=== PATIENT | female | born 1955 | race Caucasian/White ===

== ENCOUNTER → 2017-04-13 | Day surgery (SDC) | payer OTHER ==
[~2017-04-13] VITALS: Ht 162.6 cm; Wt 75.0 kg
[~2017-04-13] MED LIST: ACETAMINOPHEN 325 MG TAB PO PRN; ASPCH81X PO; ATOR-22 PO; ATROPINE SULFATE 0.1 MG/ML 5ML SYR IV PRN; CHOLPOW PO; CYM/30 PO; DICL1GEL12; DICY10CA12 PO; DULO60CA44 PO; FENTANYL CITRATE INJ 50 MCG/1 ML 2 ML VIAL ONE; FLUO40CA8 PO; HEPARIN SOD (PORCINE) 1000 UNIT/ML 10 ML VIAL ONE; METO50TA7 PO; MIDAZOLAM HCL 1 MG/ML 2ML VIAL ONE; NITROGLYCERIN/D5W 100MCG/ML 20ML SYR ONE; NiCARDipine HCL INJ 2.5 MG/ML 10 ML AMP ONE; OMEP40CA PO; ONDANSETRON INJ 2 MG/ML 2 ML VIAL IV PRN; PREG200C PO; PROP40TA5 PO; SODIUM CHLORIDE 0.9% 1000ML 250 ML IV PRN; SUMA50TA15 PO; TRAZ100T29 PO; VNTHFA/IN INH
[2017-04-13 07:05] VITALS: BP 143/72; PULSE 74; TEMP 36.8; O2SAT 96; Ht 162.6 cm; Wt 75.0 kg
--- NOTE | 2017-04-13 08:37 | History & Physical Bridge Note ---
H&P Re-Evaluation Bridge Note: I have examined the patient, reviewed the History & Physical and in the interval since the performance of the History & Physical I have noted the following changes of clinical significance: No changes noted
--- NOTE | 2017-04-13 08:38 | Procedure Note ---
Pre-Mod Sedation Assessment General Date of Moderate Sedation: Apr 13, 2017. Vital Signs: Vital Signs Past 12 Hours Date Time Temp Pulse Resp B/P (MAP) Pulse Ox O2 Delivery O2 Flow Rate FiO2 04/13/17 07:05 36.8 74 16 143/72 96 Room Air Review Cardiovascular: regular rate, rhythm, no edema, no gallop, no JVD, no murmur Abdomen: normal bowel sounds, non tender, soft Lungs: chest non-tender, lungs clear, normal breath sounds Pre-Sedation Airway Assessment Oral Cavity: WNL Short Thick Neck: No Hx of Sleep Apnea: No Smoking Status: Never Smoker Mallampati Classification: Class III ASA Classification: Class II Procedure Planning Contraindications-for Mod Sed: None Yes Notes The planned sedation has been discussed with the patient and consent obtained. I have identified the patient, determined the appropriateness of sedation and have assessed the patient immediately prior to the procedure. All medicine(s) and interventions are by my order.
--- NOTE | 2017-04-13 09:35 | Procedure Note ---
Post-Mod Sedation Assessment General Date of Moderate Sedation Apr 13, 2017. Vital Signs: Vital Signs Past 12 Hours Date Time Temp Pulse Resp B/P (MAP) Pulse Ox O2 Delivery O2 Flow Rate FiO2 04/13/17 07:05 36.8 74 16 143/72 96 Room Air Review - Discharge Criteria Vital Signs Stable: Yes Alert/Oriented/Conversant: Yes Returned to Baseline Mental St: Yes Nausea Absent/Minimal: Yes Pain/Discomfort/Absent/Minimal: Yes Normal/Baseline Respirations: Yes Active Bleeding?: No Pt Received D/C Instructions: Yes Prescriptions Given: None Specific Proced. D/C Criteria Distal Pulses Present (Cardiac: Yes Groin site assessed-Card Cath: N/A Voided Prior To Discharge: Yes Discharged Patients Adult Escort/Transportation: Yes
--- NOTE | 2017-04-13 09:41 | Cardiac Catheterization ---
Procedure Note Procedure Date Apr 13, 2017. Pre-Procedure Diagnosis Positive Stress Test AUC Score 7 Post-Procedure Diagnosis Normal Coronary Arteries Procedure(s) Performed Coronary Angiography Assistant Store Manager Operations Dr. Pa Vacuum Cooker Operator(s) Rodriguez VASQUEZIS Estimated Blood Loss Medication(s) Heparin, Nicardipine, Nitroglycerin, Versed, Lidocaine 1% Summary of Findings Normal coronary arteries Hemodynamics Rest Ao: 142/84/109 Final Ao: 154/87/116 LV: N/A Recommendations Medical therapy and/or Counseling Specimens None Radiation Exposure (mGy) 822 Contrast (mls) 60 Anesthesia Light sedation. Start 899. End 926. Procedural Complication(s) None Disposition Radio Producer Holding/Recovery ACC Data Cardiac Status Clinical evaluation leading to the procedure CAD Presntation: Positive Stress Test Anginal Classification: CCS II Heart Failure: No Coronary Anatomy Dominant: Right Left Main (% Stenosis): Normal LAD (% Stenosis): Normal D1 (% Stenosis): Normal D2 (% Stenosis): Normal Circumflex (% Stenosis): Normal OM1 (% Stenosis): Normal OM2 (% Stenosis): Normal OM3 (% Stenosis): Normal L PL1 (% Stenosis): Normal RCA (% Stenosis): Normal R PDA (% Stenosis): Normal R PL1 (% Stenosis): Normal R PL2 (% Stenosis): Normal Diagnostic Status: Elective Closure Device Percutaneous Entry Location: Radial Closure Device: Radial Band Intraprocedure Events Significant Dissection: No Perforation: No
--- NOTE | 2017-04-13 09:46 | Discharge Instructions ---
Discharge Instructions Procedure Procedure Date: Apr 13, 2017. Reason for Visit: Abnormal Nuclear Stress Test Kopinski To Do*. Discharge Discharge Date: Apr 13, 2017. Discharge Diagnosis: status post cardiac catheterization. Normal coronary arteries. Last Recorded Wt (Kilograms): 75 Anesthesia Post Anesthesia Instructions: If you have had General Anesthesia or IV Sedation: * Do not drive today. * Resume driving when surgeon permits. * Do not make important decisions or sign legal documents today. * Call surgeon for: 1. Temperature elevations greater than 101 degrees F. 2. Uncontrollable pain. 3. Excessive bleeding. 4. Persistent nausea and vomiting. 5. Medication intolerance (nausea, vomiting or rash). * For nausea and vomiting use only clear liquids such as: tea, soda, bouillon until nausea subsides, then gradually increase diet as tolerated. * If you have any concerns or questions, call your surgeon's office. If physician is unavailable and it is an emergency, call 911 or go to the nearest emergency room. Instructions Activity Recommendations: limitations as noted below Return to School/Work: with the following limitations Recommended Home Diet: resume previous diet Allergies: Coded Allergies: Morphine (Verified Allergy, Unknown, ., 02/17/14) Penicillins (Verified Allergy, Unknown, ., 02/17/14) Sulfa Antibiotics (Verified Allergy, Unknown, ., 02/17/14) Provider Instructions ACTIVITY RECOMMENDATIONS: Excess manipulation of the wrist should be avoided for the next 24-48 hours. * No lifting over 2 pounds (approximately a 1/2 gallon of milk) with the utilized arm for 24 hours. * No strenuous activity such as bowling or tennis for 3 days. * Keep the site of the procedure covered with a bandage for 24 hours. *You may shower the day after the procedure. Do not take a tub bath or submerge the puncture site in water for the next 3 days. *Do not operate any motorized equipment for 3 days. SPECIAL CARE INSTRUCTIONS: The site may be slightly bruised and sore following your procedure. Should any of the following occur, contact the Dr. who performed your procedure. 1. Redness/inflammation, swelling, chills, or fever, or colored drainage at procedure site within 3-7 days after your procedure. 2. Coldness, discoloration, ongoing numbness, severe pain, or swelling. Expect mild tingling of hand and tenderness at the puncture site for up to three days. If this persists beyond three days, or other symptoms develop, notify the Dr. who performed your procedure. BLEEDING: If the procedure site on your wrist begins to bleed, do not panic 1. Place 1 or 2 fingers firmly just slightly above the insertion site to stop the bleeding. You may be able to feel your pulse as you hold pressure. 2. Lift your finger after 5 minutes to see if the bleeding has stopped. 3. Once the bleeding has stopped, gently wipe the wrist area clean with a bandage. * If the bleeding from your wrist does not stop after 10 minutes, or if there is a large amount of bleeding or spurting, call 911 (do not drive yourself to the hospital). SKIN IRRITATION: * You may experience some redness and/or swelling in the area where radiation was administered. If any skin irritation occurs, please contact your family physician. FOLLOW UP VISIT: Keep any scheduled doctor appointments. Follow Up Follow-up with: Dr. Carlos as scheduled. PCP as scheduled. Roverto White Recommendations: Call your doctor if: * Temperature above 101 degrees * Pain not relieved by pain medicine ordered * There is increased drainage or redness from any incision * You have any unanswered questions or concerns. Your Doctors Instructions noted above were prepared by provider Alfonso Pa. Patient Signature Section: Patient Instructions Signature Page Joana Ramirez Patient (or Guardian) Signature/Date: I have read and understand the instructions given to me by my caregivers. Caregiver/RN/Doctor Signature/Date: The above-named patient and/or guardian has received patient instructions on this date. + Original Patient Signature Page (only) stays with chart. Please make copy for patient.
[2017-04-13 13:00] VITALS: BP 124/75; PULSE 66; O2SAT 98
== END | disposition home or self-care (01) ==
LOC: C.CATH 06:52
PROVIDERS: ATTEND Internal Medicine Cardiovascular Disease
DX: R94.39 Abnormal result of other cardiovascular function study (principal); I25.9 Chronic ischemic heart disease, unspecified; I49.3 Ventricular premature depolarization; I35.1 Nonrheumatic aortic (valve) insufficiency; I34.0 Nonrheumatic mitral (valve) insufficiency; I95.2 Hypotension due to drugs; R06.09 Other forms of dyspnea; R00.0 Tachycardia, unspecified; K21.0 Gastro-esophageal reflux disease with esophagitis; M15.9 Polyosteoarthritis, unspecified; M41.20 Other idiopathic scoliosis, site unspecified; Z90.710 Acquired absence of both cervix and uterus; Z83.3 Family history of diabetes mellitus; Z82.49 Family history of ischemic heart disease and other diseases of the circulatory system; Z88.0 Allergy status to penicillin; Z88.2 Allergy status to sulfonamides

== ENCOUNTER 2020-04-12 17:37 | Observation (INO) ==
--- OUTSIDE RECORDS SUMMARY | 2020-04-12 17:40 | External Medical Summary | Continuity of Care Document ---
:1955 Author Name Jose Antonio Granados, Provider Address Unavailable Unavailable , Care Team Providers Name Role Phone Susan [email or web address] PCP, UNKNOWN Unavailable Unavailable Problems Active medical history not documented Allergies and Adverse Reactions Allergy history not documented Medications Medications not documented Procedures Procedures not documented Immunizations Immunizations not documented Plan of Treatment Planned Observations Planned Goals not documented Results No Known Results Results not documented
--- OUTSIDE RECORDS SUMMARY | 2020-04-12 17:40 | External Medical Summary | Continuity of Care Document ---
:1955 Author Name Jose Antonio Granados, Provider Address Unavailable Unavailable , Care Team Providers Name Role Phone Susan [email or web address] PCP, UNKNOWN Unavailable Unavailable Problems Active medical history not documented Allergies and Adverse Reactions Allergy history not documented Medications Medications not documented Procedures Procedures not documented Immunizations Immunizations not documented Plan of Treatment Planned Observations Planned Goals not documented Results No Known Results Results not documented
[2020-04-12 18:39] LABS: Basophils # (auto) 0.02 K/uL (0-0.2); Basophils % (auto) 0.3 %; Eosinophils # (auto) 0.08 K/uL (0-0.5); Eosinophils % (auto) 1.3 %; Hematocrit (blood only) 41.3 % (37-47); Hemoglobin 13.8 g/dL (12.0-16.0); Immature Granulocytes # (auto) 0.01 K/uL (0.00-0.02); Immature Granulocytes % (auto) 0.2 %; Lymphocytes # (auto) 1.96 K/uL (1.2-3.4); Lymphocytes % (auto) 32.3 %; Mean Corpuscular Hemoglobin 28.2 pg (25-34); Mean Corpuscular Hgb Conc 33.4 g/dL (32-36); Mean Corpuscular Volume 84.3 fL (80-100); Mean Platelet Volume 12.1 fL (7.4-10.4); Monocytes # (auto) 0.67 K/uL (0.11-0.59); Neutrophils # (auto) 3.33 K/uL (1.4-6.5); Neutrophils % (auto) 54.9 %; Platelet Count 279 K/uL (130-400); White Blood Count 6.07 K/uL (4.8-10.8)
[2020-04-12 18:51] LABS: Partial Thromboplastin Ratio 0.9; Partial Thromboplastin Time 26.5 Seconds (21.0-31.0); Prothrombin Time 10.1 Seconds (9.0-12.0)
[2020-04-12 18:54] LABS: D Dimer 560 ug/L FEU (0-500)
[2020-04-12 18:57] LABS: Alanine Aminotransferase 21 U/L (12-78); Albumin Level 3.7 gm/dl (3.4-5.0); Aspartate Aminotransferase 19 U/L (15-37); BUN Creatinine Ratio 16.8 (10-20); Blood Urea Nitrogen 17 mg/dl (7-18); Calcium 9.1 mg/dl (8.5-10.1); Carbon Dioxide 24 mmol/L (21-32); Chloride 107 mmol/L (98-107); Est GFR (African American) 66.4; Est GFR (Non-African American) 57.3; Glucose 123 mg/dl (70-99); Lipase 122 U/L (73-393); Sodium 140 mmol/L (136-145)
[2020-04-12 19:02] LABS: Albumin Globulin Ratio 1.1 (0.9-2); Alkaline Phosphatase 182 U/L (45-117); Bilirubin,Total 0.4 mg/dl (0.2-1); Globulin 3.5 gm/dl (2.5-4.0); Total Protein 7.2 gm/dl (6.4-8.2); Troponin I < 0.015 ng/ml (0-0.045)
--- NOTE | 2020-04-12 19:36 | XRay Report ---
SINGLE VIEW CHEST CLINICAL HISTORY: Atypical chest pain. FINDINGS: An AP, portable, upright chest radiograph is compared to study dated 10/22/2017. The examina tion is degraded by portable technique and patient rotation. The cardiomediastinal silhouette is un remarkable. Chronic interstitial thickening is similar to previous. There is mild bibasilar scarring/ atelectasis. No airspace consolidation or large pleural effusion is identified. No pneumothorax is se en. The skeletal structures are osteopenic. The bony thorax is grossly intact. IMPRESSION: No active disease in the chest. ACT 112: Negative or not required by law. Electronically signed by: Nirav Keller M.D. 04/12/2020 7:34 PM
[2020-04-12] MEDS ORDERED: OPTIRAY 320 125ml IV ONE (19:49)
--- NOTE | 2020-04-12 20:02 | CT Scan Report ---
CT ANGIOGRAM OF THE CHEST COMBO CLINICAL HISTORY: Atypical chest pain. COMPARISON STUDY: Chest x-ray dated 04/12/2020. TECHNIQUE: Before and following the IV administration of 119 cc of Optiray 320, CT angiogram of the c hest was performed from the thoracic inlet to the upper abdomen utilizing the dissection protocol. Im ages are reviewed in the axial, sagittal, and coronal planes. 3-D MIPS images are created and assesse d. IV contrast was administered without complication. A dose lowering technique was utilized adherin g to the principles of ALARA. CT DOSE: 722.04 mGy.cm FINDINGS: Thyroid: Imaged portions of the thyroid gland are normal in size and heterogeneous in attenuation. Thoracic aorta: No intramural hematoma is seen on the unenhanced series. The thoracic aorta is normal in caliber and demonstrates standard 3-vessel arch anatomy. No dissection is seen. The arch vessels are widely patent. Pulmonary vasculature: The pulmonary trunk is normal in caliber. There are no filling defects within the main, lobar, or segmental pulmonary arteries to suggest pulmonary embolus. Heart: The heart is normal in size and without pericardial effusion. Lungs and pleural spaces: There is no airspace consolidation or pleural effusion. Scarring/atelectasi s seen at both lung bases. The trachea and central airways are clear. Mediastinum: There is no mediastinal lymphadenopathy. Jolanta: Clear. Axillae: There is no axillary lymphadenopathy. Upper abdomen: Cholecystectomy clips are noted in the right upper quadrant. Nonobstructing calculi ar e seen in the upper poles of both kidneys. Skeletal structures: The skeletal structures are osteopenic. Degenerative change and kyphoscoliosis i s noted in the thoracic spine. No lytic or blastic bony lesions are seen. IMPRESSION: 1. Unremarkable CT angiogram of the thoracic aorta. 2. There is no evidence of pulmonary embolus in the main, lobar, or segmental pulmonary arteries. 3. There is no airspace consolidation or pleural effusion. 4. Bilateral nephrolithiasis. 5. Additional findings as above. ACT 112: Negative or not required by law. Electronically signed by: Nirav Keller M.D. 04/12/2020 8:01 PM
[2020-04-12] MEDS ORDERED: ASPIRIN CHEW 324 MG PO STA (20:20)
--- NOTE | 2020-04-12 21:04 | Emergency Department Note ---
Impression & Plan Substernal chest pain, Hypokalemia ED Provider Note INFORMANT: Patient ED PROVIDER(S): Oc Finch MD CHIEF COMPLAINT: Chest pain PLAN: Disposition: Admitted Condition: Good MEDICAL DECISION MAKING: Patient presented with acute substernal chest pain that radiated to her back. Her ECG did not reveal any acute ST elevation or depression. The patient had improvement in her pain without direct treatment. She had an unremarkable chest x-ray. CBC, chemistry panel, LFTs were unremarkable except for a slightly low potassium level. Potassium was repleted. Her D-dimer was mildly elevated. Given the pain that was severe at the start and radiated to her back she underwent CT dissection study. No PE, dissection or emergent pathology was noted. She was given aspirin. I discussed further management in the hospital. The patient was in agreement. On reassessment her pain was resolved. [facility] Patient was evaluated in the ER and admitted for further management. Triage Nursing notes reviewed and agree them. Vital Signs: reviewed and remarkable for no significant abnormalities Differential diagnosis: Cardiac ischemia, aortic dissection, pulmonary embolism, pneumothorax, p neumonia, pericarditis, myocarditis, esophageal rupture, GERD, cholecystitis, pancreatitis, musculoskeletal, as well as other pathologies. Diagnostics interpreted by me: ECG: Twelve-lead ECG reveals normal sinus rhythm at 95 bpm. Inferior Q waves present. No ST elevation or depression. No PACs or PVCs. Normal axis and QRS. Cardiac Monitoring:Cardiac monitoring ordered by me: The patient was placed on continuous cardiac monitoring and observed. It revealed a normal sinus rhythm at 90 beats per minute without ectopy or evidence of dysrhythmia. Imaging studies: Chest x-ray. Findings: A chest x-ray was performed and revealed no pneumothorax, effusion, infiltrate, pulmonary edema, free air under the diaphragm, or wide mediastinum. Impression: No acute disease. CT dissection study negative for acute process. Consultation(s): Dr. Shore HPI: The patient is a 65 year old female who presents to the Emergency Room with complaints of substernal chest pain. This started this evening and is persisting. The patient also notes the following associated symptoms, pain radiating to her back and general malaise. The patient has found no relieving factors. Current pain is rated as 4/10. Pain at its peak was 10 out of 10. Pt denies LOC, headache, fevers, chills, diaphoresis, visual changes, neck pain, Covid exposure, loss of taste or smell, breathing difficulties, nausea, vomiting, abdominal pain, lower back pain, melena, hematochezia, urinary symptoms, numbness, weakness, lymphadenopathy, rash, or other complaints. ROS: See above HPI for pertinent positives & negatives. A total of 10 systems reviewed and were otherwise negative. PAST MEDICAL HISTORY:See Below, high cholesterol, GERD PAST SURGICAL HISTORY:See Below, cholecystectomy, hysterectomy FAMILY HISTORY:See Below, CAD SOCIAL HISTORY:See Below, HOME MEDICATIONS:See Below ALLERGIES:See Below VITALS:See Below PHYSICAL EXAMINATION: GENERAL: Awake, alert, uncomfortable-appearing, in no distress HENT: Normocephalic, atraumatic. Oropharynx unremarkable. EYES: Normal conjunctiva. Sclera non-icteric. NECK: Inspection normal. Non-tender. Supple. No nuchal rigidity. FROM. No masses. RESPIRATORY: Clear to auscultation. No wheezes. No rales. Normal respiratory effort. CARDIAC: Normal rate. Normal rhythm. No murmurs. No rubs. Extremities warm and well perfused. Pulses equal. No JVD. GI: Soft, non-distended. No tenderness to palpation. No rebound or guarding. No masses. RECTAL: Deferred. MUSCULOSKELETAL: Atraumatic. Chest examination reveals no tenderness. The back is symmetrical on inspection without obvious abnormality. There is no CVA tenderness to palpation. No joint edema. LOWER EXTREMITIES: Calves are equal size bilaterally and non-tender. No edema. No discoloration. NEURO: Normal sensorium. No sensory or motor deficits noted. SKIN: No rash or jaundice noted. Oc Finch MD Past Med/Surg History Social History Smoking Status: Unknown if ever smoked Feels Safe at Home: Yes Allergies Allergies Allergy/AdvReac Type Severity Reaction Status Date / Time morphine Allergy Unknown . Verified 10/22/17 10:28 Penicillins Allergy Unknown . Verified 10/22/17 10:28 Sulfa (Sulfonamide Allergy Unknown . Verified 10/22/17 10:28 Antibiotics) Home Meds Home Medications Medication Instructions Recorded Confirmed almotriptan malate 12.5 mg PO DIRECTED 04/12/20 04/12/20 atorvastatin 20 mg PO DIRECTED 04/12/20 04/12/20 cholestyramine (with sugar) 1 ea PO DIRECTED 04/12/20 04/12/20 diclofenac sodium 1 ea TOPICAL DIRECTED 04/12/20 04/12/20 duloxetine 30 mg PO DIRECTED 04/12/20 04/12/20 metoprolol succinate 50 mg PO DIRECTED 04/12/20 04/12/20 omeprazole 40 mg PO DIRECTED 04/12/20 04/12/20 trazodone 100 mg PO DIRECTED 04/12/20 04/12/20 Results & Data (ED) Vital Signs Vital Signs - 24 hr 04/12/20 17:42 04/12/20 18:03 04/12/20 18:04 Temperature 37.0 C Temperature Source Oral Pulse Rate 107 H 89 90 Pulse Rate [Left] 72 Pulse Rate from SpO2 Sensor 89 Respiratory Rate 24 20 16 Respiratory Effort / Characteristics Non-Labored Spontaneous Spontaneous Respiratory Depth Normal Respiratory Pattern Regular Blood Pressure 139/95 123/82 Blood Pressure [Left Arm] 123/82 Blood Pressure Mean 109 92 Blood Pressure Mean [Left Arm] 95 Blood Pressure Position Sitting Blood Pressure Position [Left Arm] Lying Pulse Oximetry 91 98 99 Oxygen Delivery Method Room Air Room Air Room Air Sepsis Recent Fever Within 48 Hours No Sepsis New/Unexplained Change in Mental Status No Sepsis Action Taken by Nursing Physician Notified 04/12/20 18:35 04/12/20 19:30 Temperature Temperature Source Pulse Rate 81 Pulse Rate [Left] Pulse Rate from SpO2 Sensor 81 Respiratory Rate 15 Respiratory Effort / Characteristics Respiratory Depth Respiratory Pattern Blood Pressure Blood Pressure [Left Arm] Blood Pressure Mean Blood Pressure Mean [Left Arm] Blood Pressure Position Blood Pressure Position [Left Arm] Pulse Oximetry 99 98 Oxygen Delivery Method Room Air Room Air Sepsis Recent Fever Within 48 Hours Sepsis New/Unexplained Change in Mental Status Sepsis Action Taken by Nursing Laboratory Data Result diagrams: 04/12/20 18:10 04/12/20 18:10 Lab Results 04/12/20 04/12/20 04/12/20 Range/Units 18:10 18:10 18:10 WBC 6.07 (4.8-10.8) K/uL RBC 4.90 (4.2-5.4) M/uL Hgb 13.8 (12.0-16.0) g/dL Hct 41.3 (37-47) % MCV 84.3 (80-100) fL MCH 28.2 (25-34) pg MCHC 33.4 (32-36) g/dL RDW Std Deviation 39.0 (36.4-46.3) fL RDW Coeff of Debra 13.0 (11.5-14.5) % Plt Count 279 (130-400) K/uL MPV 12.1 H (7.4-10.4) fL Immature Gran % (Auto) 0.2 % Neut % (Auto) 54.9 % Lymph % (Auto) 32.3 % [place] % (Auto) 11.0 % Eos % (Auto) 1.3 % Baso % (Auto) 0.3 % Neut # (Auto) 3.33 (1.4-6.5) K/uL Lymph # (Auto) 1.96 (1.2-3.4) K/uL [place] # (Auto) 0.67 H (0.11-0.59) K/uL Eos # (Auto) 0.08 (0-0.5) K/uL Baso # (Auto) 0.02 (0-0.2) K/uL Immature Gran # (Auto) 0.01 (0.00-0.02) K/uL PT 10.1 (9.0-12.0) Seconds INR 1.0 (0.9-1.1) APTT 26.5 (21.0-31.0) Seconds PTT Ratio 0.9 D-Dimer 560 H* (0-500) ug/L FEU Sodium 140 (136-145) mmol/L Potassium 3.0 L (3.5-5.1) mmol/L Chloride 107 (98-107) mmol/L Carbon Dioxide 24 (21-32) mmol/L Anion Gap 9.0 (3-11) BUN 17 (7-18) mg/dl Creatinine 1.02 (0.6-1.2) mg/dl Est Cr Clr Drug Dosing Not Reportable Est GFR ( Amer) 66.4 Est GFR (Non-Af Amer) 57.3 BUN/Creatinine Ratio 16.8 (10-20) Glucose 123 H (70-99) mg/dl Calcium 9.1 (8.5-10.1) mg/dl Total Bilirubin 0.4 (0.2-1) mg/dl AST 19 (15-37) U/L ALT 21 (12-78) U/L Alkaline Phosphatase 182 H (45-117) U/L Troponin I < 0.015 (0-0.045) ng/ml Total Protein 7.2 (6.4-8.2) gm/dl Albumin 3.7 (3.4-5.0) gm/dl Globulin 3.5 (2.5-4.0) gm/dl Albumin/Globulin Ratio 1.1 (0.9-2) Lipase 122 (73-393) U/L COVID-19 Eval Order SARS-CoV-2, RNA, NAAT (NEGATIVE) 04/12/20 04/12/20 Range/Units 18:10 18:10 WBC (4.8-10.8) K/uL RBC (4.2-5.4) M/uL Hgb (12.0-16.0) g/dL Hct (37-47) % MCV (80-100) fL MCH (25-34) pg MCHC (32-36) g/dL RDW Std Deviation (36.4-46.3) fL RDW Coeff of Debra (11.5-14.5) % Plt Count (130-400) K/uL MPV (7.4-10.4) fL Immature Gran % (Auto) % Neut % (Auto) % Lymph % (Auto) % [place] % (Auto) % Eos % (Auto) % Baso % (Auto) % Neut # (Auto) (1.4-6.5) K/uL Lymph # (Auto) (1.2-3.4) K/uL [place] # (Auto) (0.11-0.59) K/uL Eos # (Auto) (0-0.5) K/uL Baso # (Auto) (0-0.2) K/uL Immature Gran # (Auto) (0.00-0.02) K/uL PT (9.0-12.0) Seconds INR (0.9-1.1) APTT (21.0-31.0) Seconds PTT Ratio D-Dimer (0-500) ug/L FEU Sodium (136-145) mmol/L Potassium (3.5-5.1) mmol/L Chloride (98-107) mmol/L Carbon Dioxide (21-32) mmol/L Anion Gap (3-11) BUN (7-18) mg/dl Creatinine (0.6-1.2) mg/dl Est Cr Clr Drug Dosing Est GFR ( Amer) Est GFR (Non-Af Amer) BUN/Creatinine Ratio (10-20) Glucose (70-99) mg/dl Calcium (8.5-10.1) mg/dl Total Bilirubin (0.2-1) mg/dl AST (15-37) U/L ALT (12-78) U/L Alkaline Phosphatase (45-117) U/L Troponin I (0-0.045) ng/ml Total Protein (6.4-8.2) gm/dl Albumin (3.4-5.0) gm/dl Globulin (2.5-4.0) gm/dl Albumin/Globulin Ratio (0.9-2) Lipase (73-393) U/L COVID-19 Eval [email or web address] SARS-CoV-2, RNA, NAAT NEGATIVE (NEGATIVE) Administered Medications Discontinued Medications Aspirin (Aspirin Chew 324 Mg) 324 mg PO NOW STA Stop: 04/12/20 20:21 Last Admin: 04/12/20 20:33 Dose: 324 mg Documented by: [id number] Ioversol (Optiray 320 125ml) 119 ml IV ONCE ONE Stop: 04/12/20 19:50 Last Admin: 04/12/20 19:49 Dose: 119 ml Documented by: [id number] Discharge Plan Visit Data Chief Complaint: Chest Pain Stated Complaint: CHEST PAIN, LEFT ARM NUMBNESS, CARDIAC Hx ED Provider: Oc Finch Discharge Problem: Substernal chest pain, Hypokalemia Forms Stand Alone Forms: My [facility] Prescriptions Prescriptions: No Action atorvastatin 20 mg tablet 20 mg PO DIRECTED RF: 0 metoprolol succinate 50 mg tablet extended release 24 hr 50 mg PO DIRECTED RF: 0 almotriptan malate 12.5 mg tablet 12.5 mg PO DIRECTED RF: 0 omeprazole 40 mg capsule,delayed release(DR/EC) 40 mg PO DIRECTED RF: 0 trazodone 100 mg tablet 100 mg PO DIRECTED RF: 0 cholestyramine (with sugar) 4 gram powder in packet 1 ea PO DIRECTED RF: 0 duloxetine 30 mg capsule,delayed release(DR/EC) 30 mg PO DIRECTED RF: 0 diclofenac sodium 1 % gel 1 ea TOPICAL DIRECTED RF: 0
[2020-04-12] MEDS ORDERED: POTASSIUM CHLORIDE CRTAB 20 MEQ TABCR PO STA (21:12)
--- NOTE | 2020-04-12 22:43 | History and Physical Report ---
DATE OF ADMISSION: 04/12/2020 CHIEF COMPLAINT: Chest pain. HISTORY OF PRESENT ILLNESS: This is a 65-year-old female with past medical history significant for hyperlipidemia, interstitial lung disease, mild persistent asthma without complication, history of renal artery aneurysm, mild aortic regurgitation, moderate mitral regurgitation, ventricular ectopic beat, reflux esophagitis, irritable bowel syndrome with diarrhea, generalized osteoarthritis, idiopathic scoliosis, fibromyalgia, migraines, persistent insomnia who lives with her , presents with chest pain. The patient states today morning she was not feeling well, had some headache, nausea and a couple of episodes of diarrhea, loose stools, no blood in the stools or black stools, some abdominal discomfort, but later in the afternoon, she noticed chest pain in the middle of the chest, radiating to the back and some tingliness in her fingers, which prompted her to come to the ER, when she came in, chest pain was 9/10 in severity, currently pain is much improved. Resting comfortably and hemodynamically stable. Currently, nausea and diarrhea resolved. Currently, no headache, no blurred vision, no earache. She always has runny nose, no sore throat, no cough, no loss of sense of smell or taste. Appetite is okay. No dysphagia. She had some shortness of breath earlier , but currently no shortness of breath. Normal bladder movements. No hematuria. No swelling in the legs, no rash. Otherwise, she can walk and climb steps okay. She lives with her . No exposure to COVID patients. ALLERGIES: MORPHINE, PENICILLIN, SULFA ANTIBIOTICS. PAST MEDICAL HISTORY: As mentioned above. PAST SURGICAL HISTORY: Colonoscopy, EGDs, EGD with biopsy, EGD with endoscopic ultrasound, laparoscopic cholecystectomy, total abdominal hysterectomy with removal of tubes and bilateral oophorectomy. MEDICATIONS: The patient is on albuterol 2 puffs inhalation q. 4 hours p.r.n., almotriptan p.r.n., aspirin 81 mg p.o. daily, cholestyramine p.o. daily, diclofenac sodium topical b.i.d. p.r.n., duloxetine 90 mg p.o. daily, metoprolol succinate 50 mg p.o. b.i.d., Dulera 2 puffs inhalation b.i.d., omeprazole 40 mg p.o. b.i.d., trazodone 100 mg p.o. at bedtime. FAMILY HISTORY: Significant for maternal grandmother had breast cancer and diabetes. Mother has hypertension. Aunt has diabetes. SOCIAL HISTORY: , lives with . No smoking, alcohol rarely, no drug use. REVIEW OF SYMPTOMS: As per HPI. Rest of review of symptoms negative. PHYSICAL EXAMINATION: GENERAL: The patient is of moderate build, not in acute distress. VITAL SIGNS: Temperature 37, pulse 81, respiratory rate 15, blood pressure 153/82, oxygen 98% on room air. HEENT: Pupils equal, round, reactive to light. Oral mucosa moist. NECK: Supple. No neck masses seen. CARDIOVASCULAR: S1, S2 heard, regular rate and rhythm, no murmur, no gallop. RESPIRATORY SYSTEM: Normal AP diameter. No accessory muscle use. No wheezing, no crackles. ABDOMEN: Soft, bowel sounds present, nontender. No distention. CENTRAL NERVOUS SYSTEM: Cranial nerves II-XII grossly intact, nonfocal. EXTREMITIES: No edema, no erythema. LABORATORY DATA: WBC 6.07, hemoglobin 13.8, hematocrit 41.3, platelet 279. PT 10.1, INR 1, APTT 26.5. D-dimer 560. Sodium 140, potassium 3, chloride 107, CO2 24, BUN 17, creatinine 1.02, serum glucose 123, calcium 9.1, total bilirubin 0.4, AST 19, ALT 21, alkaline phosphatase 182. Troponin I less than 0.015. Lipase 122. SARS-CoV-2 negative. IMAGING: Chest x-ray, no active disease in chest. CTA of the chest, unremarkable CT angiogram of the thoracic aorta. There is no evidence of pulmonary embolus in the main, lobar, or segmental pulmonary arteries. There is no airspace consolidation or pleural effusion, bilateral nephrolithiasis. EKG: Normal sinus rhythm, rate of 95, some Q-waves in inferior leads, no acute ST changes seen. ASSESSMENT AND PLAN: A 65-year-old female who presents with chest pain. 1. Chest pain, rule out acute coronary syndrome risk Age, hypertension. Initial workup negative. Will follow the serial enzymes,and repeat EKG, echocardiogram. D dimer mildly elevated but CTA chest No PE. We will keep n.p.o. and consult cardiology in a.m. for further recommendations. 2. Hypertension. Continue Toprol-XL with holding parameters. Monitor blood pressure. 3. Questionable history of hyperlipidemia, patient is not sure if she is taking statin. Follow fasting lipid profile. 4. History of irritable bowel syndrome, on cholestyramine. She had episode of diarrhea today. 5. History of reflux esophagitis, on omeprazole. 6. History of mild aortic regurgitation, moderate mitral regurgitation, ventricular ectopy beat, we will monitor in tele, will follow the echocardiogram. 6. History of mild persistent asthma without complication, interstitial lung disease. Continue home inhalers. 7. Fibromyalgia on duloxetine. 8. Migraines on almotriptan p.r.n. 9. Persistent insomnia, on trazodone. 10. Deep venous thrombosis prophylaxis, sequential compression devices for now. 8. Disposition: Observation in med tele. Level 1 full code. Expect to discharge home and follow with family doctor. MTDD
[2020-04-12] MEDS ORDERED: NITROGLYCERIN SL 0.4 MG/TAB TAB SL PRN (23:23)
[2020-04-12] MEDS ORDERED: ALBUTEROL HFA 8 GM INHALER INH PRN (23:23)
[2020-04-12] MEDS ORDERED: DICLOFENAC SOD 1% GEL 100 GM TUBE EXT PRN (23:23)
[2020-04-12] MEDS ORDERED: ACETAMINOPHEN 325 MG TAB PO PRN (23:23)
[2020-04-12] MEDS ORDERED: ONDANSETRON INJ 2 MG/ML 2 ML VIAL IV PRN (23:23)
[2020-04-13 05:51] LABS: Basophils # (auto) 0.02 K/uL (0-0.2); Basophils % (auto) 0.5 %; Eosinophils % (auto) 2.3 %; Hematocrit (blood only) 40.8 % (37-47); Hemoglobin 13.5 g/dL (12.0-16.0); Immature Granulocytes # (auto) 0.02 K/uL (0.00-0.02); Immature Granulocytes % (auto) 0.5 %; Lymphocytes # (auto) 1.35 K/uL (1.2-3.4); Lymphocytes % (auto) 30.5 %; Mean Corpuscular Hemoglobin 28.7 pg (25-34); Mean Corpuscular Hgb Conc 33.1 g/dL (32-36); Mean Corpuscular Volume 86.6 fL (80-100); Mean Platelet Volume 11.8 fL (7.4-10.4); Monocytes # (auto) 0.54 K/uL (0.11-0.59); Monocytes % (auto) 12.2 %; Neutrophils # (auto) 2.39 K/uL (1.4-6.5); Platelet Count 238 K/uL (130-400); RDW Coefficient of Variation 13.2 % (11.5-14.5); RDW Standard Deviation 42.1 fL (36.4-46.3); Red Blood Count 4.71 M/uL (4.2-5.4); White Blood Count 4.42 K/uL (4.8-10.8)
[2020-04-13 06:22] LABS: BUN Creatinine Ratio 14.8 (10-20); Calcium 8.8 mg/dl (8.5-10.1); Creatinine Clr Calc Pharmacy 60.9 ml/min; Est GFR (African American) 79.4; Est GFR (Non-African American) 68.5; Magnesium 2.2 mg/dl (1.8-2.4); Potassium 3.8 mmol/L (3.5-5.1)
[2020-04-13] MEDS ORDERED: FLUTICASONE/VILANTEROL 100/25MCG 14 PUFFS/INHALER INH SCH (09:00)
[2020-04-13] MEDS ORDERED: METOPROLOL SUCC 50MG EXT REL TAB PO SCH (09:00)
[2020-04-13] MEDS ORDERED: DULoxetine HCL 30 MG CAP PO SCH (09:00)
[2020-04-13] MEDS ORDERED: ASPIRIN 81 MG ECTAB PO SCH (09:00)
[2020-04-13] MEDS ORDERED: PANTOprazole 40 MG TAB PO SCH (09:00)
--- NOTE | 2020-04-13 09:51 | Cardiology Consultation ---
Date of Consultation April 13, 2020 Assessment & Plan (1) Substernal chest pain: (2) Fibromyalgia: (3) Frequent PVCs: (4) Mitral regurgitation: (5) Aortic regurgitation: Given the fact that her chest discomfort is completely reproducible on palpation I do believe this is musculoskeletal in nature. Her troponins are negative with an unremarkable EKG. She had a cardiac catheterization in 2017 which revealed normal coronary arteries. I will review her resting echocardiogram which should remain unchanged and no further cardiac testing or intervention is necessary at this time. She is already scheduled for reevaluation nuclear stress test on the seventh, I recommended she complete this as recommended and follow-up as scheduled. No medication changes made at this time. Would consider physical therapy evaluation to help with stretching History of Present Illness Reason for Consultation: syncope Requesting Physician: Dr. Shore Attending Physician: Ani Marte MD History of Present Illness It was my pleasure to see Mrs. Ramirez and cardiac consultation today April 13, 2020 she is a very pleasant 65-year-old woman who normally follows with Surjit Zamarripa of our cardiology practice for her history of frequent PVCs. She presented to [facility] on 04/12/2020 with complaints of chest pain. She states that the pain started suddenly when she was seated on her couch watching television. She describes it as a sharp stabbing sensation in the center of her chest that seem to radiate straight through to her back. She denied any associated symptoms or shortness of breath, diaphoresis, nausea, lightheadedness, dizziness or syncope. She states that the pain was worse with movement. She was brought into the emergency department, short work-up was unremarkable and she was admitted to telemetry. She notes that her discomfort has subsided overnight and now feels well. She states that this is different from the previous fibromyalgia pain. Allergies Allergy/AdvReac Type Severity Reaction Status Date / Time morphine Allergy Unknown . Verified 04/12/20 21:33 Penicillins Allergy Unknown . Verified 04/12/20 21:33 Sulfa (Sulfonamide Allergy Unknown . Verified 04/12/20 21:33 Antibiotics) Home Medications Medication Instructions Recorded Confirmed Type albuterol sulfate 2 puff INHALATION Q4H PRN 04/12/20 04/12/20 History almotriptan malate 12.5 mg PO DIRECTED 04/12/20 04/12/20 History aspirin [Aspirin Low Dose] 81 mg PO DAILY 04/12/20 04/12/20 History atorvastatin 20 mg PO DIRECTED 04/12/20 04/12/20 History cholestyramine (with sugar) 1 ea PO DAILY 04/12/20 04/12/20 History diclofenac sodium 1 ea TOPICAL BID PRN 04/12/20 04/12/20 History duloxetine 90 mg PO DAILY 04/12/20 04/12/20 History metoprolol succinate 50 mg PO BID 04/12/20 04/12/20 History mometasone-formoterol [Dulera] 2 puff INHALATION BID 04/12/20 04/12/20 History omeprazole 40 mg PO BID 04/12/20 04/12/20 History trazodone 100 mg PO HS 04/12/20 04/12/20 History acetaminophen [Tylenol Arthritis 650 mg PO Q8H PRN #30 tab 04/13/20 Rx Pain] Patient History Social History Smoking Status: Never smoker Second Hand Exposure: Yes (daughter); Do You Dip or Chew Tobacco: No; Hx Alcohol Use: No Hx Substance Use: No Preferred Language: Armenian Communication Ability: Effective Cobol Application Developer Required: No Beliefs That Will Affect Care: None Current Living Situation: Spouse Other Information That Helps Us Care for You: No Feels Safe at Home: Yes Safety Concerns: Feels Safe At This Time Assistive Devices: None Review of Systems Review of Systems: All systems reviewed & are unremarkable except as noted in HPI & below Physical Exam Physical Exam: General: Awake, alert and oriented x 3. No acute distress. HEENT: Normocephalic, atraumatic. Pupils equal, round and reactive to light and accommodation. Extraocular muscles are intact. Anicteric sclera. Moist mucous membranes. Neck: No JVD. No bruit. Cardiovascular: Regular. Positive S-4. Normal S-1 and S-2. No S-3. 3/6 holosystolic ejection murmur, left sternal border, mid-clavicular line with radiation to the axilla. No rubs. Pulmonary: Clear to auscultation bilaterally. No rales, rhonchi, or wheezing. Abdomen: Bowel sounds x 4, soft. No rebound, guarding or tenderness. No organomegaly. Extremities: No clubbing, cyanosis or edema. +2 pedal pulses bilaterally. Skin: Warm and dry. Musculoskeletal: Direct palpation of her second and started snoring was noted to be spontaneous accelerations with reproduction of her chest discomfort. Results & Data ([facility]) Vital Signs (Past 12 Hours) Vital Signs Temp Pulse Pulse Resp BP BP Pulse Ox 04/13/20 03:20 36.5 C 85 18 101/68 98 04/13/20 00:00 81 04/12/20 23:23 36.4 C L 81 16 113/75 96 04/12/20 22:31 85 12 111/63 98 04/12/20 22:00 80 17 115/76 97 Pulse Ox 04/13/20 03:20 04/13/20 00:00 04/12/20 23:23 96 04/12/20 22:31 04/12/20 22:00 Laboratory Results Laboratory Results - last 24 hr 04/12/20 04/12/20 04/12/20 18:10 18:10 18:10 WBC 6.07 RBC 4.90 Hgb 13.8 Hct 41.3 MCV 84.3 MCH 28.2 MCHC 33.4 RDW Std Deviation 39.0 RDW Coeff of Debra 13.0 Plt Count 279 MPV 12.1 H Immature Gran % (Auto) 0.2 Neut % (Auto) 54.9 Lymph % (Auto) 32.3 [place] % (Auto) 11.0 Eos % (Auto) 1.3 Baso % (Auto) 0.3 Neut # (Auto) 3.33 Lymph # (Auto) 1.96 [place] # (Auto) 0.67 H Eos # (Auto) 0.08 Baso # (Auto) 0.02 Immature Gran # (Auto) 0.01 PT 10.1 INR 1.0 APTT 26.5 PTT Ratio 0.9 D-Dimer 560 H* Sodium 140 Potassium 3.0 L Chloride 107 Carbon Dioxide 24 Anion Gap 9.0 BUN 17 Creatinine 1.02 Est Cr Clr Drug Dosing Not Reportable Est GFR ( Amer) 66.4 Est GFR (Non-Af Amer) 57.3 BUN/Creatinine Ratio 16.8 Glucose 123 H Calcium 9.1 Magnesium Total Bilirubin 0.4 AST 19 ALT 21 Alkaline Phosphatase 182 H Troponin I < 0.015 Total Protein 7.2 Albumin 3.7 Globulin 3.5 Albumin/Globulin Ratio 1.1 Triglycerides Cholesterol LDL Cholesterol, Calc VLDL Cholesterol, Calc HDL Cholesterol Cholesterol/HDL Ratio Lipase 122 COVID-19 Eval Order SARS-CoV-2, RNA, NAAT 04/12/20 04/12/20 04/13/20 18:10 18:10 05:28 WBC RBC Hgb Hct MCV MCH MCHC RDW Std Deviation RDW Coeff of Debra Plt Count MPV Immature Gran % (Auto) Neut % (Auto) Lymph % (Auto) [place] % (Auto) Eos % (Auto) Baso % (Auto) Neut # (Auto) Lymph # (Auto) [place] # (Auto) Eos # (Auto) Baso # (Auto) Immature Gran # (Auto) PT INR APTT PTT Ratio D-Dimer Sodium 141 Potassium 3.8 D Chloride 110 H Carbon Dioxide 26 Anion Gap 5.0 BUN 13 Creatinine 0.88 Est Cr Clr Drug Dosing 60.9 Est GFR ( Amer) 79.4 Est GFR (Non-Af Amer) 68.5 BUN/Creatinine Ratio 14.8 Glucose 93 Calcium 8.8 Magnesium 2.2 Total Bilirubin AST ALT Alkaline Phosphatase Troponin I Total Protein Albumin Globulin Albumin/Globulin Ratio Triglycerides 98 Cholesterol 130 LDL Cholesterol, Calc 45 VLDL Cholesterol, Calc 20 HDL Cholesterol 65 Cholesterol/HDL Ratio 2 Lipase COVID-19 Eval Order Covid19 [facility]Now [facility] SARS-CoV-2, RNA, NAAT NEGATIVE 04/13/20 04/13/20 05:28 07:51 WBC 4.42 L RBC 4.71 Hgb 13.5 Hct 40.8 MCV 86.6 MCH 28.7 MCHC 33.1 RDW Std Deviation 42.1 RDW Coeff of Debra 13.2 Plt Count 238 MPV 11.8 H Immature Gran % (Auto) 0.5 Neut % (Auto) 54.0 Lymph % (Auto) 30.5 [place] % (Auto) 12.2 Eos % (Auto) 2.3 Baso % (Auto) 0.5 Neut # (Auto) 2.39 Lymph # (Auto) 1.35 [place] # (Auto) 0.54 Eos # (Auto) 0.10 Baso # (Auto) 0.02 Immature Gran # (Auto) 0.02 PT INR APTT PTT Ratio D-Dimer Sodium Potassium Chloride Carbon Dioxide Anion Gap BUN Creatinine Est Cr Clr Drug Dosing Est GFR ( Amer) Est GFR (Non-Af Amer) BUN/Creatinine Ratio Glucose Calcium Magnesium Total Bilirubin AST ALT Alkaline Phosphatase Troponin I < 0.015 Total Protein Albumin Globulin Albumin/Globulin Ratio Triglycerides Cholesterol LDL Cholesterol, Calc VLDL Cholesterol, Calc HDL Cholesterol Cholesterol/HDL Ratio Lipase COVID-19 Eval Order SARS-CoV-2, RNA, NAAT Medications Administered Current Inpatient Medications Acetaminophen (Acetaminophen 325 Mg Tab) 650 mg PO Q4H PRN PRN Reason: Pain or Fever Stop: 05/12/20 23:22 Albuterol (Albuterol Hfa 8 Gm Inhaler) 2 puffs INH Q4H PRN PRN Reason: Shortness Of Breath Or Wheezing Stop: 05/12/20 23:22 Aspirin (Aspirin 81 Mg Ectab) 81 mg PO DAILY MARKOS Stop: 05/13/20 08:59 Last Admin: 04/13/20 07:36 Dose: 81 mg Documented by: Cholestyramine Resin (Cholestyramine Light 4 Gm Pkt) 4 gm PO DAILY@1000 MARKOS Stop: 05/13/20 09:59 Last Admin: 04/13/20 09:52 Dose: 4 gm Documented by: Diclofenac Sodium (Diclofenac Sod 1% Gel 100 Gm Tube) 2 gm EXT BID PRN PRN Reason: Pain Stop: 05/12/20 23:22 Duloxetine HCl (Duloxetine Hcl 30 Mg Cap) 90 mg PO DAILY MARKOS Stop: 05/13/20 08:59 Last Admin: 04/13/20 07:36 Dose: 90 mg Documented by: Fluticasone/Vilanterol (Fluticasone/Vilanterol 100/25mcg 14 Puffs/Inhaler) 1 puffs INH DAILY MARKOS Stop: 05/13/20 08:59 Last Admin: 04/13/20 07:35 Dose: 1 puffs Documented by: Metoprolol Succinate (Metoprolol Succ 50mg Ext Rel Tab) 50 mg PO BID MARKOS Stop: 05/13/20 08:59 Last Admin: 04/13/20 07:36 Dose: 50 mg Documented by: Miscellaneous (Almotriptan~Order Awaiting Action) 1 ea N/A QS MARKOS Stop: 05/13/20 00:00 Last Admin: 04/13/20 06:58 Dose: Not Given Documented by: Nitroglycerin (Nitroglycerin Sl 0.4 Mg/Tab Tab) 0.4 mg SL UD PRN PRN Reason: Chest Pain Stop: 05/12/20 23:22 Ondansetron HCl (Ondansetron Inj 2 Mg/Ml 2 Ml Vial) 4 mg IV Q6H PRN PRN Reason: Nausea Stop: 05/12/20 23:22 Pantoprazole Sodium (Pantoprazole 40 Mg Tab) 40 mg PO BID MARKOS Stop: 05/13/20 08:59 Last Admin: 04/13/20 07:36 Dose: 40 mg Documented by: Trazodone HCl (Trazodone Hcl 100 Mg Tab) 100 mg PO HS [facility] Stop: 05/13/20 20:59
[2020-04-13] MEDS ORDERED: CHOLESTYRAMINE LIGHT 4 GM PKT PO SCH (10:00)
--- NOTE | 2020-04-13 11:02 | Electrocardiogram Report ---
Test Reason : Blood Pressure : / mmHG Vent. Rate : 095 BPM Atrial Rate : 095 BPM P-R Int : 150 ms QRS Dur : 090 ms QT Int : 378 ms P-R-T Axes : 056 010 052 degrees QTc Int : 475 ms Normal sinus rhythm When compared with ECG of 17-FEB-2014 14:41, Nonspecific T wave abnormality no longer evident in Inferior leads Confirmed by Madi Hernandez ([id number]) on 04/13/2020 11:02:26 AM Referred By: REFERRED SELF Confirmed By:Marc Hernandez
--- NOTE | 2020-04-13 11:11 | Electrocardiogram Report ---
Test Reason : Blood Pressure : / mmHG Vent. Rate : 088 BPM Atrial Rate : 088 BPM P-R Int : 136 ms QRS Dur : 086 ms QT Int : 380 ms P-R-T Axes : 061 059 078 degrees QTc Int : 459 ms Normal sinus rhythm Nonspecific ST abnormality Abnormal ECG When compared with ECG of 12-APR-2020 17:48, (unconfirmed) Borderline criteria for Inferior infarct are no longer Present Confirmed by Madi Hernandze ([id number]) on 04/13/2020 11:11:21 AM Referred By: REFERRED SELF Confirmed By:Marc Hernandez
--- NOTE | 2020-04-13 14:43 | Discharge Summary ---
Date of Service April 13, 2020 Admission HPI Per Admitting Provider 65-year-old female with past medical history significant for hyperlipidemia, interstitial lung disease, mild persistent asthma without complication, history of renal artery aneurysm, mild aortic regurgitation, moderate mitral regurgitation, ventricular ectopic beat, reflux esophagitis, irritable bowel syndrome with diarrhea, generalized osteoarthritis, idiopathic scoliosis, fibromyalgia, migraines, persistent insomnia who lives with her , presents with chest pain. The patient states today morning she was not feeling well, had some headache, nausea and a couple of episodes of diarrhea, loose stools, no blood in the stools or black stools, some abdominal discomfort, but later in the afternoon, she noticed chest pain in the middle of the chest, radiating to the back and some tingliness in her fingers, which prompted her to come to the ER, when she came in, chest pain was 9/10 in severity, currently pain is much improved. Resting comfortably and hemodynamically stable. Currently, nausea and diarrhea resolved. Currently, no headache, no blurred vision, no earache. She always has runny nose, no sore throat, no cough, no loss of sense of smell or taste. Appetite is okay. No dysphagia. She had some shortness of breath earlier , but currently no shortness of breath. Normal bladder movements. No hematuria. No swelling in the legs, no rash. Otherwise, she can walk and climb steps okay. She lives with her . No exposure to COVID patients. Admission Exam Per Admitting Provider GENERAL: The patient is of moderate build, not in acute distress. VITAL SIGNS: Temperature 37, pulse 81, respiratory rate 15, blood pressure 153/82, oxygen 98% on room air. HEENT: Pupils equal, round, reactive to light. Oral mucosa moist. NECK: Supple. No neck masses seen. CARDIOVASCULAR: S1, S2 heard, regular rate and rhythm, no murmur, no gallop. RESPIRATORY SYSTEM: Normal AP diameter. No accessory muscle use. No wheezing, no crackles. ABDOMEN: Soft, bowel sounds present, nontender. No distention. CENTRAL NERVOUS SYSTEM: Cranial nerves II-XII grossly intact, nonfocal. EXTREMITIES: No edema, no erythema. Principal Diagnosis Atypical chest pain Musculoskeletal pain Discharge Exam Constitutional + well hydrated; no acute distress Eyes PERRL, conjunctivae normal, anicteric sclerae ENMT external ear and nose normal, oropharynx normal Respiratory normal respiratory effort, lungs clear to auscultation Cardiovascular Rate/Rhythm: regular rate and regular rhythm S1 S2 Chest (Breasts) Additional Comments: Mid sternal tenderness Gastrointestinal (Abdomen) normal bowel sounds, soft, nontender, no hepatosplenomegaly Musculoskeletal No pedal edema Neurologic PERRL, EOMI, accommodation nl, no face palsy, no dysarthria Psychiatric A+Ox3, euthymic affect Discharge Data Allergies Allergy/AdvReac Type Severity Reaction Status Date / Time morphine Allergy Unknown . Verified 04/12/20 21:33 Penicillins Allergy Unknown . Verified 04/12/20 21:33 Sulfa (Sulfonamide Allergy Unknown . Verified 04/12/20 21:33 Antibiotics) Consultations 04/12/20 20:19 ED Decision to Admit Stat 04/12/20 23:23 Consult Case Management - Discharge Planning Routine 04/13/20 08:00 Consult Cardiology Routine Ordered Studies 04/12/20 19:05 CT angio chest dissec wo/w con Stat Thyroid: Imaged portions of the thyroid gland are normal in size and heterogeneous in attenuation. Thoracic aorta: No intramural hematoma is seen on the unenhanced series. The thoracic aorta is normal in caliber and demonstrates standard 3-vessel arch anatomy. No dissection is seen. The arch vessels are widely patent. Pulmonary vasculature: The pulmonary trunk is normal in caliber. There are no filling defects within the main, lobar, or segmental pulmonary arteries to suggest pulmonary embolus. Heart: The heart is normal in size and without pericardial effusion. Lungs and pleural spaces: There is no airspace consolidation or pleural effusion. Scarring/atelectasis seen at both lung bases. The trachea and central airways are clear. Mediastinum: There is no mediastinal lymphadenopathy. [place]ol[place]: Clear. Axillae: There is no axillary lymphadenopathy. Upper abdomen: Cholecystectomy clips are noted in the right upper quadrant. Nonobstructing calculi are seen in the upper poles of both kidneys. Skeletal structures: The skeletal structures are osteopenic. Degenerative change and kyphoscoliosis is noted in the thoracic spine. No lytic or blastic bony lesions are seen. IMPRESSION: 1. Unremarkable CT angiogram of the thoracic aorta. 2. There is no evidence of pulmonary embolus in the main, lobar, or segmental pu lmonary arteries. 3. There is no airspace consolidation or pleural effusion. 4. Bilateral nephrolithiasis. 5. Additional findings as above. Hospital Course (1) Substernal chest pain: Chest pain was atypical Troponin and EKG were unremarkable Chest pain is musculoskeletal. CTA was negative for any aortic disease or PE Was evaluated by Cardiology. Echo showed normal LV systolic function with EF 60- 65, Grade 1 DD Was evaluated by PT and taught stretching exercises Tylenol prn for pain Continue home meds Follow up with Counterintelligence Agent outpatient Total Time Total Time Spent Total Time Spent (In Minutes): 25 Total Time Includes: Examination of the Patient, Discharge Planning, Medication Reconciliation and Communication With Other Providers Discharge Plan Discharge Items Patient Disposition: Home - Self-Care Reason For Visit: CHEST PAIN Discharge Diagnosis: Atypical chest pain Musculoskeletal chest pain Activity: Resume your previous activity Non-emergency contact: Primary Care Provider and Counterintelligence Agent Call non-emergency contact if: you have any medication questions and your symptoms worsen Follow-up/Referrals: George Cervantes MD [Primary Care Provider] - (Date & Time 04/17/2020 11:00 AM Provider George Cervantes MD Department Internal Medicine [facility] ) Diet: Heart Healthy Addtl Attending Provider Instructions: Ms Ramirez. You came to the hospital complaining of chest pain. You were evaluated and found to have musculoskeletal pain. You were also evaluated by Counterintelligence Agent. Your chest pain resolved. Please do the chest therapy exercises advised. Continue your home medications and follow up with your Primary Doctor and Counterintelligence Agent. It was a pleasure taking care of you. Pending Studies at Discharge: No Stand-Alone Forms: My [facility] Shortlist, Smoking Cessation Medications and DC Order Prescriptions: New acetaminophen [Tylenol Arthritis Pain] 650 mg tablet extended release 650 mg PO Q8H PRN (Reason: fever or pain) Qty: 30 RF: 0 Continued atorvastatin 20 mg tablet 20 mg PO DIRECTED RF: 0 metoprolol succinate 50 mg tablet extended release 24 hr 50 mg PO BID RF: 0 almotriptan malate 12.5 mg tablet 12.5 mg PO DIRECTED RF: 0 omeprazole 40 mg capsule,delayed release(DR/EC) 40 mg PO BID RF: 0 trazodone 100 mg tablet 100 mg PO HS RF: 0 cholestyramine (with sugar) 4 gram powder in packet 1 ea PO DAILY RF: 0 duloxetine 30 mg capsule,delayed release(DR/EC) 90 mg PO DAILY RF: 0 diclofenac sodium 1 % gel 1 ea topical BID PRN (Reason: Pain) RF: 0 aspirin [Aspirin Low Dose] 81 mg Tablet,Delayed Release (Dr/Ec) 81 mg PO DAILY RF: 0 albuterol sulfate 90 mcg/actuation HFA aerosol inhaler 2 puff INHALATION Q4H PRN (Reason: Shortness Of Breath Or Wheezing) RF: 0 Dulera 200-5 mcg/actuation HFA aerosol inhaler 2 puff INHALATION BID RF: 0 Discharge Orders: Discharge Order (Routine); Ordered 04/13/20 Ordered By: Ani Marte Admission Data Admit Date/Time: 04/12/20 22:06 Attending Provider: Ani Marte I. Admit Provider: Sourav Shore Primary Care Provider: George Cervantes Other Providers: Sourav Shore ; Jonathan Carlos ; Chuck Aguilera ; Cameron Kerr ; Alfonso Pa ; Bulmaro Tirado ; Surjit Zamarripa ; Georgiana Machado ; Clarisa Valverde ; Guru Hall Other Interventions: Discharge Summary Assessment (RN) Last Done: 04/13/20 15:08
[2020-04-13] MEDS ORDERED: traZODone HCL 100 MG TAB PO SCH (21:00)
== END 2020-04-13 16:50 | disposition home or self-care (01) ==
LOC: ED 17:37 → 2W 17:37

== ENCOUNTER 2023-09-05 15:21 | Observation (INO) ==
--- NOTE | 2023-09-05 15:35 | ED Triage Note ---
Date of Service September 05, 2023 Provider in Triage Author: Kassandra Shane History of Present Illness This patient was briefly evaluated while in triage. An abbreviated physical exam was performed. This patient is a 68-year-old Female who presents to the ED for evaluation of lethargy, unable to stay awake possibly due to medication overdose. PCP sent for overdose r/o stroke. Physical Exam CONSTITUTIONAL: in no acute pain or distress, lethargic SKIN: pink, warm, dry CARDIAC: regular rate and rhythm RESPIRATORY: in no respiratory distress, lungs clear to auscultation ABDOMEN: no TTP MSK: 5/5 strength throughout NEURO: no neuro deficits, lethargic Initial orders for labs and / or imaging were placed and patient was placed in the waiting area until a bed is available. Please see further documentation for the full ED course. MDM / Impression Impression Impression: TIA (transient ischemic attack)
--- NOTE | 2023-09-05 16:01 | XRay Report ---
XR chest 1V portable HISTORY: 68 years-old Female lethargy acute weakness COMPARISON: 04/12/2020 TECHNIQUE: AP view of the chest FINDINGS: Cardiac silhouette is enlarged. Chronic interstitial coarsening. No pneumothorax, pleural effusion or overt pulmonary edema. Mild retrocardiac left basilar opacity. Bones appear grossly intact. IMPRESSION: 1. Cardiomegaly without pulmonary edema. 2. Mild retrocardiac left basilar opacities favor atelectasis. A mild pneumonia considered less likel y. ACT 112: Negative or not required by law. The above report was generated using voice recognition software. It may contain grammatical, syntax o r spelling errors. Electronically signed by: Storm Garcia M.D. 09/05/2023 4:00 PM
[2023-09-05 16:11] LABS: iSTAT Creatinine 1.3 mg/dl (0.6-1.3); iSTAT Hemoglobin 15.3 g/dl (12.0-16.0); iSTAT Ionized Calcium 1.24 mmol/l (1.12-1.32)
[2023-09-05] MEDS: OPTIRAY 320 125ml IV ONE (16:14)
[2023-09-05 16:15] LABS: Basophils # (auto) 0.04 K/uL (0.00-0.20); Basophils % (auto) 0.7 %; Eosinophils # (auto) 0.15 K/uL (0.00-0.50); Eosinophils % (auto) 2.7 %; Hematocrit (blood only) 45.3 % (37.0-47.0); Hemoglobin 14.6 g/dl (12.0-16.0); Immature Granulocytes # (auto) 0.02 K/uL (0.01-0.20); Immature Granulocytes % (auto) 0.4 %; Lymphocytes # (auto) 1.55 K/uL (1.20-3.40); Lymphocytes % (auto) 27.5 %; Mean Corpuscular Hemoglobin 27.5 pg (25.0-34.0); Mean Corpuscular Hgb Conc 32.2 g/dL (32.0-36.0); Mean Corpuscular Volume 85.3 fL (80.0-100.0); Mean Platelet Volume 12.1 fL (9.4-12.4); Monocytes # (auto) 0.73 K/uL (0.11-0.59); Neutrophils # (auto) 3.14 K/uL (1.40-6.50); Neutrophils % (auto) 55.7 %; Platelet Count 219 K/uL (130-400); RDW Coefficient of Variation 13.6 % (11.5-14.5); RDW Standard Deviation 42.4 fL (36.4-46.3); Red Blood Count 5.31 M/uL (4.20-5.40); White Blood Count 5.63 K/ul (4.8-10.8)
--- NOTE | 2023-09-05 16:17 | Emergency Department Note ---
History of Present Illness General Chief complaint: Referred by Doctor Stated complaint: Dizziness Time Seen by Provider: 09/05/23 15:39 Source: patient and family History of Present Illness Provider complaint: Dizziness 68-year-old female presents to the emergency department for dizziness. reports that the patient woke up this morning and was very dizzy and could not move. He states that when he went to bed at 10 PM last night she was totally normal. Patient reports they took the patient to their primary care doctor who noticed that the patient was slurring words and had a facial droop and was referred here for stroke workup. Patient does not report any headache. No fevers. No trauma. Home Medications Medication Instructions Recorded Confirmed Type almotriptan malate 12.5 mg tablet 12.5 mg PO DIRECTED PRN 04/12/20 09/05/23 History Migraine Headache aspirin 81 mg tablet,delayed 81 mg PO DAILY 04/12/20 09/05/23 History release (Quan Low Dose Aspirin) atorvastatin 20 mg tablet 20 mg PO QAM 04/12/20 09/05/23 History diclofenac sodium 1 % topical gel 1 ea topical BID PRN Pain 04/12/20 09/05/23 History duloxetine 30 mg capsule,delayed 30 mg PO DAILY 04/12/20 09/05/23 History release metoprolol succinate 50 mg 50 mg PO BID 04/12/20 09/05/23 History tablet,extended release 24 hr omeprazole 40 mg capsule,delayed 40 mg PO BID 04/12/20 09/05/23 History release alendronate 70 mg tablet 70 mg PO WK 09/05/23 09/05/23 History duloxetine 60 mg capsule,delayed 60 mg PO DAILY 09/05/23 09/05/23 History release galcanezumab-gnlm 120 mg/mL 120 mg subcut MONTHLY 09/05/23 09/05/23 History subcutaneous pen injector (Emgality Pen) pregabalin 50 mg capsule 50 mg PO BID 09/05/23 09/05/23 History trazodone 150 mg tablet 150 mg PO HS 09/05/23 09/05/23 History Allergies Allergy/AdvReac Type Severity Reaction Status Date / Time morphine Allergy Intermediate SWELLING Verified 09/05/23 16:54 Penicillins Allergy Intermediate Rash Verified 09/05/23 16:54 Sulfa (Sulfonamide Allergy Intermediate Rash Verified 09/05/23 16:54 Antibiotics) Past Med/Surg History Medical History Aortic regurgitation Frequent PVCs Hypokalemia History of IBS Fibromyalgia Migraines Surgical History Hx of cholecystectomy H/O: hysterectomy Social History Smoking Status: Never smoker Second Hand Exposure: Yes (daughter); Do You Dip or Chew Tobacco: No; Hx Alcohol Use: No Hx Substance Use: No Preferred Language: Salvadorean Communication Ability: Effective Spike Driver Required: No Beliefs That Will Affect Care: None marital status: Current Living Situation: Spouse Feels Safe at Home: Yes Assistive Devices: None Physical Exam Vital Signs Vital Signs - 24 hr 09/05/23 15:22 09/05/23 16:12 09/05/23 16:14 Temperature 36.8 C Temperature Source Temporal Artery Scan Pulse Rate 83 Pulse Rate from SpO2 Sensor Respiratory Rate 18 Blood Pressure 118/84 Blood Pressure [Left Arm] 136/97 Blood Pressure Mean 95 Blood Pressure Mean [Left Arm] 110 Pulse Oximetry 94 98 Oxygen Delivery Method Room Air Sepsis Recent Fever Within 48 Hours No Sepsis New/Unexplained Change in Mental Status N/A Sepsis Action Taken by Nursing No Action Required 09/05/23 16:14 09/05/23 16:15 09/05/23 16:20 Temperature Temperature Source Pulse Rate 83 81 83 Pulse Rate from SpO2 Sensor 83 81 Respiratory Rate 17 16 Blood Pressure Blood Pressure [Left Arm] Blood Pressure Mean Blood Pressure Mean [Left Arm] Pulse Oximetry 98 98 Oxygen Delivery Method Sepsis Recent Fever Within 48 Hours Sepsis New/Unexplained Change in Mental Status Sepsis Action Taken by Nursing 09/05/23 16:30 09/05/23 16:30 09/05/23 16:30 Temperature Temperature Source Pulse Rate 75 Pulse Rate from SpO2 Sensor 75 Respiratory Rate 20 Blood Pressure 137/82 137/82 Blood Pressure [Left Arm] Blood Pressure Mean 111 111 Blood Pressure Mean [Left Arm] Pulse Oximetry 100 Oxygen Delivery Method Sepsis Recent Fever Within 48 Hours Sepsis New/Unexplained Change in Mental Status Sepsis Action Taken by Nursing Physical Exam GENERAL: oriented to person, place, and time. appears well-developed and well- nourished. HENT: Exam performed. - Head: Normocephalic and atraumatic. EYES: Conjunctivae and EOM are normal. Right eye exhibits no discharge. Left eye exhibits no discharge. No scleral icterus. NECK: Normal range of motion. Neck supple. No JVD present. CV: Normal rate, regular rhythm, normal heart sounds and intact distal pulses. There is no peripheral edema. Palpable radial pulses bue. PULM/CHEST: Effort normal and breath sounds normal. No respiratory distress. No stridor. no wheezes. no rales. ABD: The abdomen is soft. There is no tenderness. NEURO: NIHSS: 0 SKIN: Skin is warm and dry. He is not diaphoretic. PSYCH: normal mood and affect. Behavior is normal. Judgment and thought content normal. Course Course 153: The patient was evaluated in room A1. A complete history and physical exam was performed Cardiac monitoring: An order was placed for continuous cardiac monitoring. The monitor shows a rate of 80 with sinus rhythm interpreted by me Patient's last well normal was yesterday NIHSS 0 no code stroke called as patient was not a TNKase candidate. 174: Vital signs stable. On reassessment patient is alert and oriented x 3 with no focal neurologic deficits. NIHSS 0. Labs and imaging within normal limits. Patient will be admitted for TIA workup. Administered Medications Discontinued Medications Aspirin (Aspirin 81 Mg Chew) 324 mg PO NOW STA Stop: 09/05/23 17:22 Last Admin: 09/05/23 17:27 Dose: 324 mg Documented By: OUMOU Ioversol (Optiray 320 125ml) 118 ml IV ONCE ONE Stop: 09/05/23 16:14 Last Admin: 09/05/23 16:14 Dose: 118 ml Documented By: LUCIAN Medical Decision Making Laboratory Data Attestation: I reviewed the patient's lab results. 09/05/23 15:50 09/05/23 15:50 Lab Results 09/05/23 09/05/23 09/05/23 Range/Units 15:45 15:50 15:54 WBC 5.63 (4.8-10.8) K/ul RBC 5.31 (4.20-5.40) M/uL Hgb 14.6 (12.0-16.0) g/dl POC Hgb 15.3 (12.0-16.0) g/dl Hct 45.3 (37.0-47.0) % POC Hct 45 (37-47) % MCV 85.3 (80.0-100.0) fL MCH 27.5 (25.0-34.0) pg MCHC 32.2 (32.0-36.0) g/dL RDW Std Deviation 42.4 (36.4-46.3) fL RDW Coeff of Debra 13.6 (11.5-14.5) % Plt Count 219 (130-400) K/uL MPV 12.1 (9.4-12.4) fL Immature Gran % (Auto) 0.4 % Neut % (Auto) 55.7 % Lymph % (Auto) 27.5 % Barbour % (Auto) 13.0 % Eos % (Auto) 2.7 % Baso % (Auto) 0.7 % Neut # (Auto) 3.14 (1.40-6.50) K/uL Lymph # (Auto) 1.55 (1.20-3.40) K/uL Barbour # (Auto) 0.73 H (0.11-0.59) K/uL Eos # (Auto) 0.15 (0.00-0.50) K/uL Baso # (Auto) 0.04 (0.00-0.20) K/uL Immature Gran # (Auto) 0.02 (0.01-0.20) K/uL PT 10.2 (9.0-12.0) Seconds INR 0.9 (0.9-1.1) APTT 25 (21-31) Seconds PTT Ratio 0.9 VBG pH (7.36-7.41) VBG pCO2 (38-50) mmHg VBG pO2 mmHg VBG HCO3 mmol/L VBG O2 Saturation % VBG Base Excess mEq/L POC Sodium 139 (135-144) mmol/L Sodium 138 (136-145) mmol/L POC Potassium 4.0 (3.3-5.0) mmol/L Potassium 4.0 (3.5-5.1) mmol/L POC Chloride 103 (101-112) mmol/L Chloride 106 (98-107) mmol/L Carbon Dioxide 28 (21-32) mmol/L POC Total CO2 28 (24-31) mmol/L Anion Gap 4 (3-11) POC Anion Gap 13.0 L (16-25) mmol/L POC BUN 19 H (7-18) mg/dl BUN 18 (6-23) mg/dl Creatinine 1.08 (0.6-1.2) mg/dl POC Creatinine 1.3 (0.6-1.3) mg/dl Est Cr Clr Drug Dosing 49.7 ml/min Est GFR ( Amer) 60.7 ml/min Est GFR (Non-Af Amer) 52.3 ml/min BUN/Creatinine Ratio 16.7 (10-20) Glucose 93 (70-99(Fasting)) mg/dl POC Glucose 90 (70-99) mg/dl POC Glucose (other) 89 (70-99) mg/dl Calcium 9.5 (8.6-10.3) mg/dl POC Ioniz Calcium Roberto 1.24 (1.12-1.32) mmol/l Magnesium 2.2 (1.7-2.4) mg/dl Total Bilirubin 0.4 (0.2-1.0) mg/dl AST 21 (13-39) U/L ALT 18 (7-52) U/L Alkaline Phosphatase 103 (34-104) U/L Ammonia Troponin I High Sens 3.0 (0-14) pg/ml Total Protein 7.1 (6.0-8.3) gm/dl Albumin 4.3 (3.4-5.0) gm/dl Globulin 2.8 (2.5-4.0) gm/dl Albumin/Globulin Ratio 1.5 (0.9-2) Blood Type Antibody Screen 09/05/23 09/05/23 Range/Units 15:58 16:25 WBC (4.8-10.8) K/ul RBC (4.20-5.40) M/uL Hgb (12.0-16.0) g/dl POC Hgb (12.0-16.0) g/dl Hct (37.0-47.0) % POC Hct (37-47) % MCV (80.0-100.0) fL MCH (25.0-34.0) pg MCHC (32.0-36.0) g/dL RDW Std Deviation (36.4-46.3) fL RDW Coeff of Debra (11.5-14.5) % Plt Count (130-400) K/uL MPV (9.4-12.4) fL Immature Gran % (Auto) % Neut % (Auto) % Lymph % (Auto) % Barbour % (Auto) % Eos % (Auto) % Baso % (Auto) % Neut # (Auto) (1.40-6.50) K/uL Lymph # (Auto) (1.20-3.40) K/uL Barbour # (Auto) (0.11-0.59) K/uL Eos # (Auto) (0.00-0.50) K/uL Baso # (Auto) (0.00-0.20) K/uL Immature Gran # (Auto) (0.01-0.20) K/uL PT (9.0-12.0) Seconds INR (0.9-1.1) APTT (21-31) Seconds PTT Ratio VBG pH 7.36 (7.36-7.41) VBG pCO2 51 H (38-50) mmHg VBG pO2 27 mmHg VBG HCO3 29 mmol/L VBG O2 Saturation < 60.0 % VBG Base Excess 2.4 mEq/L POC Sodium (135-144) mmol/L Sodium (136-145) mmol/L POC Potassium (3.3-5.0) mmol/L Potassium (3.5-5.1) mmol/L POC Chloride (101-112) mmol/L Chloride (98-107) mmol/L Carbon Dioxide (21-32) mmol/L POC Total CO2 (24-31) mmol/L Anion Gap (3-11) POC Anion Gap (16-25) mmol/L POC BUN (7-18) mg/dl BUN (6-23) mg/dl Creatinine (0.6-1.2) mg/dl POC Creatinine (0.6-1.3) mg/dl Est Cr Clr Drug Dosing ml/min Est GFR ( Amer) ml/min Est GFR (Non-Af Amer) ml/min BUN/Creatinine Ratio (10-20) Glucose (70-99(Fasting)) mg/dl POC Glucose (70-99) mg/dl POC Glucose (other) (70-99) mg/dl Calcium (8.6-10.3) mg/dl POC Ioniz Calcium Roberto (1.12-1.32) mmol/l Magnesium (1.7-2.4) mg/dl Total Bilirubin (0.2-1.0) mg/dl AST (13-39) U/L ALT (7-52) U/L Alkaline Phosphatase (34-104) U/L Ammonia TNP Troponin I High Sens (0-14) pg/ml Total Protein (6.0-8.3) gm/dl Albumin (3.4-5.0) gm/dl Globulin (2.5-4.0) gm/dl Albumin/Globulin Ratio (0.9-2) Blood Type A Positive Antibody Screen NEGATIVE Imaging Data Attestation: I personally reviewed and interpreted this imaging study as follows: My Impression: Chest x-ray negative. Airway clear. No pneumothorax. No consolidation. No cardiomegaly or cephalization.. No free air under the diaphragm. No fractures of the skeletal structures. Radiologist's Impression: Chest X-Ray 09/05/23 15:38 XR chest 1V portable HISTORY: 68 years-old Female lethargy acute weakness COMPARISON: 04/12/2020 TECHNIQUE: AP view of the chest FINDINGS: Cardiac silhouette is enlarged. Chronic interstitial coarsening. No pneumothorax, pleural effusion or overt pulmonary edema. Mild retrocardiac left basilar opacity. Bones appear grossly intact. IMPRESSION: 1. Cardiomegaly without pulmonary edema. 2. Mild retrocardiac left basilar opacities favor atelectasis. A mild pneumonia considered less likely. ACT 112: Negative or not required by law. The above report was generated using voice recognition software. It may contain grammatical, syntax or spelling errors. Electronically signed by: Storm Garcia M.D. 09/05/2023 4:[address] 09/05/23 15:39 CT head/brain wo con CLINICAL HISTORY: 68 years-old Female with lethargy. Acutely altered mental status TECHNIQUE: Multiple axial CT images of the head were obtained without contrast. A dose lowering technique was utilized adhering to the principles of ALARA. CT DOSE: 944.17 mGy.cm COMPARISON: CTA head of same day FINDINGS: No acute intracranial hemorrhage, midline shift, intracranial mass, hydrocephalus, territorial ischemia or abnormal extra-axial collection. Mild involutional changes. The calvarium is intact. The paranasal sinuses, mastoid air cells, and middle ear cavities are clear. IMPRESSION: No acute intracranial abnormality. ACT 112: Negative or not required by law. The above report was generated using voice recognition software. It may contain grammatical, syntax or spelling errors. Electronically signed by: Storm Garcia M.D. 09/05/2023 4:27 PM Head CTA 09/05/23 15:46 CTA ANGIOGRAPHY OF THE HEAD CLINICAL HISTORY: neuro deficit, acute stroke suspected COMPARISON STUDY: Head CT February 17, 2014. TECHNIQUE: Helical axial images of the head were obtained following uneventful intravenous administration of 118 cc of Optiray. Sagittal and coronal reconstructions were viewed as well as maximal intensity projections on an independent 3-D workstation. Automated exposure control was utilized for the study. A dose lowering technique was utilized adhering to the principles of ALARA. FINDINGS: No acute intracranial hemorrhage is identified on this exam. The ventricular system is normal. Basal cisterns are patent. There are no extra- axial collections. The bilateral M1, M2, A1 and A2 segments are patent. There is no vessel occlusion. The posterior circulation is intact. There is no intracranial aneurysm or dissection. IMPRESSION: No central vessel occlusion. No intracranial aneurysm. ACT 112: Negative or not required by law. Electronically signed by: Fili Milligan M.D. 09/05/2023 4:45 PM Neck CTA 09/05/23 15:46 CT angio neck with con CLINICAL HISTORY: 68 years-old Female with neuro deficit, acute stroke suspected. Acute stroke like symptoms COMPARISON STUDY: CTA head of same day TECHNIQUE: Following the IV administration of 118 mL of Optiray, CT angiogram of the neck was performed from the aortic arch to the skull base. Images are reviewed in the axial, sagittal, and coronal planes. 3-D MIPS images are created and assessed. IV contrast was administered without complication. All measurements were calculated based on NASCET criteria. A dose lowering technique was utilized adhering to the principles of ALARA. FINDINGS: Three-vessel morphology of the thoracic aorta arch. Patency of the innominate and imaged subclavian arteries. The common and internal carotid arteries are widely patent. No significant atherosclerosis. Dominant right vertebral artery. The bilateral vertebral arteries are widely patent. The imaged basilar artery is also patent. No aneurysm, dissection, high-grade stenosis or arterial occlusion. No pneumothorax. Partially imaged groundglass densities of the dependent lungs favors atelectasis. Unremarkable soft tissues. Degenerative changes of the spine. IMPRESSION:Unremarkable CTA of the neck. ACT 112: Negative or not required by law. The above report was generated using voice recognition software. It may contain grammatical, syntax or spelling errors. Electronically signed by: Storm Garcia M.D. 09/05/2023 4:30 PM ECG Data Attestation: I personally reviewed and interpreted this ECG as follows: Rate (beats per minute): 81 Rhythm: + normal sinus ECG Intervals/blocks: + Normal QRS, + Normal NC and + Normal QT-c ECG ST segments: + Normal ST segments MDM Narrative 1539: The patient was evaluated in room A1. A complete history and physical exam was performed Cardiac monitoring: An order was placed for continuous cardiac monitoring. The monitor shows a rate of 80 with sinus rhythm interpreted by me Patient's last well normal was yesterday NIHSS 0 no code stroke called as patient was not a TNKase candidate. 1747: Vital signs stable. On reassessment patient is alert and oriented x 3 with no focal neurologic deficits. NIHSS 0. Labs and imaging within normal limits. Patient will be admitted for TIA workup. Impression & Plan TIA (transient ischemic attack) Discharge Plan Visit Data Chief Complaint: Referred by Doctor Stated Complaint: Dizziness ED Provider: Tre Pulliam Discharge Problem: TIA (transient ischemic attack) Patient Disposition: Being Evaluated by Hospitalist Forms Stand Alone Forms: My [facility] Prescriptions Prescriptions: No Action atorvastatin 20 mg tablet 20 mg PO QAM metoprolol succinate 50 mg tablet extended release 24 hr 50 mg PO BID almotriptan malate 12.5 mg tablet 12.5 mg PO DIRECTED PRN (Reason: Migraine Headache) omeprazole 40 mg capsule,delayed release(DR/EC) 40 mg PO BID duloxetine 30 mg capsule,delayed release(DR/EC) 30 mg PO DAILY Rx Instructions: TOTAL DOSE 90 MG--TAKES WITH 60 MG CAP. diclofenac sodium 1 % gel 1 ea topical BID PRN (Reason: Pain) aspirin [Quan Low Dose Aspirin] 81 mg Tablet,Delayed Release (Dr/Ec) 81 mg PO DAILY alendronate 70 mg tablet 70 mg PO WK Rx Instructions: MONDAYS trazodone 150 mg tablet 150 mg PO HS duloxetine 60 mg capsule,delayed release(DR/EC) 60 mg PO DAILY Rx Instructions: TOTAL DOSE 90 MG--TAKES WITH 30 MG pregabalin 50 mg capsule 50 mg PO BID Emgality Pen 120 mg/mL pen injector 120 mg SUBCUT MONTHLY Rx Instructions: TAKES THE OF THE MONTH Referrals Referrals: George Cervantes MD [Primary Care Provider] -
[2023-09-05 16:28] LABS: Albumin Globulin Ratio 1.5 (0.9-2); Albumin Level 4.3 gm/dl (3.4-5.0); BUN Creatinine Ratio 16.7 (10-20); Bilirubin,Total 0.4 mg/dl (0.2-1.0); Calcium 9.5 mg/dl (8.6-10.3); Creatinine Clr Calc Pharmacy 49.7 ml/min; Est GFR (African American) 60.7 ml/min; Est GFR (Non-African American) 52.3 ml/min; Globulin 2.8 gm/dl (2.5-4.0); Magnesium 2.2 mg/dl (1.7-2.4); Total Protein 7.1 gm/dl (6.0-8.3)
--- NOTE | 2023-09-05 16:28 | CT Scan Report ---
CT head/brain wo con CLINICAL HISTORY: 68 years-old Female with lethargy. Acutely altered mental status TECHNIQUE: Multiple axial CT images of the head were obtained without contrast. A dose lowering tech nique was utilized adhering to the principles of ALARA. CT DOSE: 944.17 mGy.cm COMPARISON: CTA head of same day FINDINGS: No acute intracranial hemorrhage, midline shift, intracranial mass, hydrocephalus, territorial ischem ia or abnormal extra-axial collection. Mild involutional changes. The calvarium is intact. The paranasal sinuses, mastoid air cells, and middle ear cavities are clear . IMPRESSION: No acute intracranial abnormality. ACT 112: Negative or not required by law. The above report was generated using voice recognition software. It may contain grammatical, syntax o r spelling errors. Electronically signed by: Storm Garcia M.D. 09/05/2023 4:27 PM
--- NOTE | 2023-09-05 16:32 | CT Scan Report ---
CT angio neck with con CLINICAL HISTORY: 68 years-old Female with neuro deficit, acute stroke suspected. Acute stroke lik e symptoms COMPARISON STUDY: CTA head of same day TECHNIQUE: Following the IV administration of 118 mL of Optiray, CT angiogram of the neck was perform ed from the aortic arch to the skull base. Images are reviewed in the axial, sagittal, and coronal pl anes. 3-D MIPS images are created and assessed. IV contrast was administered without complication. Al l measurements were calculated based on NASCET criteria. A dose lowering technique was utilized adhe ring to the principles of ALARA. FINDINGS: Three-vessel morphology of the thoracic aorta arch. Patency of the innominate and imaged subclavian a rteries. The common and internal carotid arteries are widely patent. No significant atherosclerosis. Dominant right vertebral artery. The bilateral vertebral arteries are widely patent. The imaged basil ar artery is also patent. No aneurysm, dissection, high-grade stenosis or arterial occlusion. No pneumothorax. Partially imaged groundglass densities of the dependent lungs favors atelectasis. Un remarkable soft tissues. Degenerative changes of the spine. IMPRESSION:Unremarkable CTA of the neck. ACT 112: Negative or not required by law. The above report was generated using voice recognition software. It may contain grammatical, syntax o r spelling errors. Electronically signed by: Storm Garcia M.D. 09/05/2023 4:30 PM
[2023-09-05 16:34] LABS: INR 0.9 (0.9-1.1); Partial Thromboplastin Ratio 0.9; Partial Thromboplastin Time 25 Seconds (21-31); Prothrombin Time 10.2 Seconds (9.0-12.0)
[2023-09-05 16:43] LABS: Base Excess VBG 2.4 mEq/L; HCO3 VBG 29 mmol/L; Oxygen Saturation VBG < 60.0 %; PCO2 VBG 51 mmHg (38-50); PO2 VBG 27 mmHg; pH VBG 7.36 (7.36-7.41)
--- NOTE | 2023-09-05 16:47 | CT Scan Report ---
CTA ANGIOGRAPHY OF THE HEAD CLINICAL HISTORY: neuro deficit, acute stroke suspected COMPARISON STUDY: Head CT February 17, 2014. TECHNIQUE: Helical axial images of the head were obtained following uneventful intravenous administr ation of 118 cc of Optiray. Sagittal and coronal reconstructions were viewed as well as maximal inten sity projections on an independent 3-D workstation. Automated exposure control was utilized for the study. A dose lowering technique was utilized adhering to the principles of ALARA. FINDINGS: No acute intracranial hemorrhage is identified on this exam. The ventricular system is norm al. Basal cisterns are patent. There are no extra-axial collections. The bilateral M1, M2, A1 and A2 segments are patent. There is no vessel occlusion. The posterior circulation is intact. There is no i ntracranial aneurysm or dissection. IMPRESSION: No central vessel occlusion. No intracranial aneurysm. ACT 112: Negative or not required by law. Electronically signed by: Fili Milligan M.D. 09/05/2023 4:45 PM
[2023-09-05] MEDS: ASPIRIN 81 MG CHEW PO STA (17:27)
[2023-09-05 18:30] LABS: Appearance Urine Clear (Clear); Bilirubin Urine Negative (Negative); Blood Urine Negative (Negative); Color Urine Yellow; Glucose Urine UA Negative (Negative); Ketones Urine Negative (Negative); Leukocyte Esterase Urine Negative (Negative); Nitrite Urine Negative (Negative); Protein Urine Negative (Negative); Specific Gravity Urine > 1.045 (1.000-1.030); Urobilinogen Urine Negative (Negative); pH Urine 5.5 (4.5-7.5)
--- NOTE | 2023-09-05 18:30 | History & Physical Report ---
Date of Service September 05, 2023 Assessment & Plan (1) Stroke-like symptoms: (2) Vertigo: (3) HTN (hypertension): (4) HLD (hyperlipidemia): (5) Depression: (6) GERD (gastroesophageal reflux disease): (7) Osteoporosis: Plan Ms. Ramirez is a 68-year-old female that presented to the ED today as recommended by her PCP after she presented today with complaints of dizziness, fatigued and slurred speech that was identified by her PCP. She woke up this morning feeling dizzy and proceeded to make lunch that included pork ribs and potatoes at 1230. Since then she was unable to feel so she could stay awake. Her and son were at bedside and no identified mild facial droop. She was loaded with aspirin and brought to the ED. Recently started on almotriptan at the beginning of the month for persistent headaches that she reports has been helpful. No known history of cardiac AMI or CVA. Head CT and head neck CTA negative for ICH, occlusion, midline shift or acute stroke. No leukocytosis otherwise labs unremarkable. Past medical history includes fibromyalgia, history of Mejias's palsy, depression, OA, HTN, HLD, headache and GERD. PCI catheterization 2016 normal no occlusions. Most recent echo 05/02 EF 55 to 59%, mild MR, mild AV regurgitation, grade 1 diastolic dysfunction. Patient reevaluated at bedside and is AAO x 4 and is able to answer all questions appropriately. NIH 0. Equal strength upper and lower extremities. No pronator drift. No nystagmus noted. PERRLA. Patient will be admitted for further evaluation and management of possible strokelike symptoms; suspect vertigo in nature. Complete neurowork-up with admission to PCU, echocardiogram, MRI brain, n.p.o. until passing dysphagia screen, PT OT/speech. Consider vestibular PT for vertigo symptoms. Stroke like symptoms: acute + slurred speech this AM with dizziness NIH [address] and Head/Neck CTA negative brain MRI pending ECHO ordered Neuro consultation Lipid panel in AM NPO until passing dysphagia screening PT/OT/ST ordered Vertigo: Migranes: Acute Recently started on a triptan; could be contributing to symptoms ecstasy positive in urine; could be from triptan therapy; hold triptan consider vertigo in nature Check Orthostatic BP's Consider vestibular PT HTN: chronic takes metoprolol;continue Normotensive in ED and no concerns to allow for permissive HTN HLD: chronic takes atorvastatin;continue check lipid panel in AM Depression: chronic Takes duloxetine;continue GERD: Chronic Takes omeprazole; continue Osteoporosis: Chronic Takes alendronate; continue Disposition: PCP: Dr. Cervantes Code Status: Full Code VTE Prophylaxis: Teds and SCDs for now I spent a total of 87 minutes coordinating, documenting, and providing care for this patient excluding time spent in the performance of separately billed services. All of the aforementioned completed while collaborating with the assigned attending physician for a full treatment plan. Please see their addendum for further details. History of Present Illness Chief Complaint: stroke like symptoms Primary Care Provider: George Cervantes MD Ms. Ramirez is a 68-year-old female that presented to the ED today as recommended by her PCP after she presented today with complaints of dizziness, fatigued and slurred speech that was identified by her PCP. She woke up this morning feeling dizzy and proceeded to make lunch that included pork ribs and potatoes at 1230. Since then she was unable to feel so she could stay awake. Her and son were at bedside and no identified mild facial droop. She was loaded with aspirin and brought to the ED. Recently started on almotriptan at the beginning of the month for persistent headaches that she reports has been helpful. No known history of cardiac AMI or CVA. Head CT and head neck CTA negative for ICH, occlusion, midline shift or acute stroke. No leukocytosis otherwise labs unremarkable. Past medical history includes fibromyalgia, history of Mejias's palsy, depression, OA, HTN, HLD, headache and GERD. PCI catheterization 2016 normal no occlusions. Most recent echo 05/02 EF 55 to 59%, mild MR, mild AV regurgitation, grade 1 diastolic dysfunction. Patient denies dizziness with position changes. Patient uses a cane/walker for assistance in ambulation due to her fibromyalgia. Patient reevaluated at bedside and is AAO x 4 and is able to answer all questions appropriately. NIH 0. Equal strength upper and lower extremities. No pronator drift. No nystagmus noted. PERRLA. Patient will be admitted for further evaluation and management of possible strokelike symptoms; suspect vertigo in nature. Complete neurowork-up with admission to PCU, echocardiogram, MRI brain, n.p.o. until passing dysphagia screen, PT OT/speech. Consider vestibular PT for vertigo symptoms. Allergies Allergy/AdvReac Type Severity Reaction Status Date / Time morphine Allergy Intermediate SWELLING Verified 09/05/23 16:54 Penicillins Allergy Intermediate Rash Verified 09/05/23 16:54 Sulfa (Sulfonamide Allergy Intermediate Rash Verified 09/05/23 16:54 Antibiotics) Home Medications Medication Instructions Recorded Confirmed Type almotriptan malate 12.5 mg tablet 12.5 mg PO DIRECTED PRN 04/12/20 09/05/23 History Migraine Headache aspirin 81 mg tablet,delayed 81 mg PO DAILY 04/12/20 09/05/23 History release (Quan Low Dose Aspirin) atorvastatin 20 mg tablet 20 mg PO QAM 04/12/20 09/05/23 History diclofenac sodium 1 % topical gel 1 ea topical BID PRN Pain 04/12/20 09/05/23 History duloxetine 30 mg capsule,delayed 30 mg PO DAILY 04/12/20 09/05/23 History release metoprolol succinate 50 mg 50 mg PO BID 04/12/20 09/05/23 History tablet,extended release 24 hr omeprazole 40 mg capsule,delayed 40 mg PO BID 04/12/20 09/05/23 History release alendronate 70 mg tablet 70 mg PO WK 09/05/23 09/05/23 History duloxetine 60 mg capsule,delayed 60 mg PO DAILY 09/05/23 09/05/23 History release galcanezumab-gnlm 120 mg/mL 120 mg subcut MONTHLY 09/05/23 09/05/23 History subcutaneous pen injector (Emgality Pen) pregabalin 50 mg capsule 50 mg PO BID 09/05/23 09/05/23 History trazodone 150 mg tablet 150 mg PO HS 09/05/23 09/05/23 History Past Med/Surg History Medical History (Updated 09/05/23 @ 19:23 by ROMEO Haynes) Osteoporosis GERD (gastroesophageal reflux disease) Depression HLD (hyperlipidemia) HTN (hypertension) Vertigo Stroke-like symptoms Fibromyalgia Migraines Aortic regurgitation Frequent PVCs Hypokalemia History of IBS Surgical History Hx of cholecystectomy H/O: hysterectomy Social History (Reviewed 09/05/23 @ 19:21 by SUSAN Haynes Smoking Status: Never smoker Second Hand Exposure: Yes (daughter); Do You Dip or Chew Tobacco: No; Hx Alcohol Use: No Hx Substance Use: No Preferred Language: Cymro Communication Ability: Effective Airport Utility Worker Required: No Beliefs That Will Affect Care: None marital status: Current Living Situation: Spouse Feels Safe at Home: Yes Assistive Devices: None Review of Systems Review of Systems: Neuro: (-) Falls, trauma, slurred speech HEENT: (-) [place], dizziness, dysphagia, visual or auditory changes CV: (-) CP, palpitations, swelling Resp: (-) SOB GI: (-) appetite changes, N/V/D, bowel changes : (-) urinary changes Skin: (-) rashes Psych: (-) anxiety, depression Physical Exam Physical Exam: Neuro: AAOx4, PERRLA, no aphagia, memory changes, CNII-XII grossly intact HEENT: head normocephalic, moist mucus membranes CV: S1/S2, (-) M/G/R, (-) edema, cap refill < 3 seconds Resp: Lungs CTA in all morse. On RA GI: Abdomen S/NT/ND, Ax4 bowel sounds, (-) CVA tenderness Musculoskeletal: 5/5 B/L UE strength, 5/5 B/L LE strength. No gait disturbance Skin: (-) rashes , (-) erythema. Psych: euthymic mood Results & Data Results & Data Vital Signs (Past 12 Hours) Vital Signs Temp Pulse Pulse Resp BP BP Pulse Ox 09/05/23 18:00 79 16 94 09/05/23 16:30 75 20 100 09/05/23 16:30 137/82 09/05/23 16:30 137/82 09/05/23 16:20 83 09/05/23 16:15 81 16 98 09/05/23 16:14 83 17 98 09/05/23 16:14 98 09/05/23 16:12 136/97 09/05/23 15:22 36.8 C 83 18 118/84 94 O2 Del Method 09/05/23 18:00 Room Air 09/05/23 16:30 09/05/23 16:30 09/05/23 16:30 09/05/23 16:20 09/05/23 16:15 09/05/23 16:14 09/05/23 16:14 Room Air 09/05/23 16:12 09/05/23 15:22 Laboratory Results Short CBC 09/05/23 Range/Units 15:50 WBC 5.63 (4.8-10.8) K/ul Hgb 14.6 (12.0-16.0) g/dl Hct 45.3 (37.0-47.0) % Plt Count 219 (130-400) K/uL BMP 09/05/23 15:50 Sodium 138 Potassium 4.0 Chloride 106 Carbon Dioxide 28 BUN 18 Creatinine 1.08 Glucose 93 Calcium 9.5 Liver Function 09/05/23 Range/Units 15:50 Total Bilirubin 0.4 (0.2-1.0) mg/dl AST 21 (13-39) U/L ALT 18 (7-52) U/L Alkaline Phosphatase 103 (34-104) U/L Albumin 4.3 (3.4-5.0) gm/dl Urine 09/05/23 Range/Units 17:42 Urine Color Yellow Urine Appearance Clear (Clear) Urine pH 5.5 (4.5-7.5) Ur Specific [place] > 1.045 H (1.000-1.030) Urine Protein Negative (Negative) Urine Glucose (UA) Negative (Negative) Diagnostic Findings Chest X-Ray 09/05/23 15:38 XR chest 1V portable HISTORY: 68 years-old Female lethargy acute weakness COMPARISON: 04/12/2020 TECHNIQUE: AP view of the chest FINDINGS: Cardiac silhouette is enlarged. Chronic interstitial coarsening. No pneumothorax, pleural effusion or overt pulmonary edema. Mild retrocardiac left basilar opacity. Bones appear grossly intact. IMPRESSION: 1. Cardiomegaly without pulmonary edema. 2. Mild retrocardiac left basilar opacities favor atelectasis. A mild pneumonia considered less likely. ACT 112: Negative or not required by law. The above report was generated using voice recognition software. It may contain grammatical, syntax or spelling errors. Electronically signed by: Storm Garcia M.D. 09/05/2023 4:[address] 09/05/23 15:39 CT head/brain wo con CLINICAL HISTORY: 68 years-old Female with lethargy. Acutely altered mental status TECHNIQUE: Multiple axial CT images of the head were obtained without contrast. A dose lowering technique was utilized adhering to the principles of ALARA. CT DOSE: 944.17 mGy.cm COMPARISON: CTA head of same day FINDINGS: No acute intracranial hemorrhage, midline shift, intracranial mass, hydrocephalus, territorial ischemia or abnormal extra-axial collection. Mild involutional changes. The calvarium is intact. The paranasal sinuses, mastoid air cells, and middle ear cavities are clear. IMPRESSION: No acute intracranial abnormality. ACT 112: Negative or not required by law. The above report was generated using voice recognition software. It may contain grammatical, syntax or spelling errors. Electronically signed by: Storm Garcia M.D. 09/05/2023 4:27 PM Head CTA 09/05/23 15:46 CTA ANGIOGRAPHY OF THE HEAD CLINICAL HISTORY: neuro deficit, acute stroke suspected COMPARISON STUDY: Head CT February 17, 2014. TECHNIQUE: Helical axial images of the head were obtained following uneventful intravenous administration of 118 cc of Optiray. Sagittal and coronal reconstructions were viewed as well as maximal intensity projections on an independent 3-D workstation. Automated exposure control was utilized for the study. A dose lowering technique was utilized adhering to the principles of ALARA. FINDINGS: No acute intracranial hemorrhage is identified on this exam. The ventricular system is normal. Basal cisterns are patent. There are no extra- axial collections. The bilateral M1, M2, A1 and A2 segments are patent. There is no vessel occlusion. The posterior circulation is intact. There is no intracranial aneurysm or dissection. IMPRESSION: No central vessel occlusion. No intracranial aneurysm. ACT 112: Negative or not required by law. Electronically signed by: Fili Milligan M.D. 09/05/2023 4:45 PM Neck CTA 09/05/23 15:46 CT angio neck with con CLINICAL HISTORY: 68 years-old Female with neuro deficit, acute stroke suspected. Acute stroke like symptoms COMPARISON STUDY: CTA head of same day TECHNIQUE: Following the IV administration of 118 mL of Optiray, CT angiogram of the neck was performed from the aortic arch to the skull base. Images are reviewed in the axial, sagittal, and coronal planes. 3-D MIPS images are created and assessed. IV contrast was administered without complication. All measurements were calculated based on NASCET criteria. A dose lowering technique was utilized adhering to the principles of ALARA. FINDINGS: Three-vessel morphology of the thoracic aorta arch. Patency of the innominate and imaged subclavian arteries. The common and internal carotid arteries are widely patent. No significant atherosclerosis. Dominant right vertebral artery. The bilateral vertebral arteries are widely patent. The imaged basilar artery is also patent. No aneurysm, dissection, high-grade stenosis or arterial occlusion. No pneumothorax. Partially imaged groundglass densities of the dependent lungs favors atelectasis. Unremarkable soft tissues. Degenerative changes of the spine. IMPRESSION:Unremarkable CTA of the neck. ACT 112: Negative or not required by law. The above report was generated using voice recognition software. It may contain grammatical, syntax or spelling errors. Electronically signed by: Storm Garcia M.D. 09/05/2023 4:30 PM Code Status & VTE Plan Code Status Full code in the event of cardiac or respiratory arrest VTE Prophylaxis Plan VTE Prophylaxis will be ordered: Yes Supervising Physician Co-Signing Physician Notes I have seen and discussed the case with the collaborating advanced practitioner. I agree with the above H&P. I have reviewed and confirmed the patients medical history, the findings on physical examination, and the patients diagnosis and treatment plan with Adia WALTERS and agree with the information documented. In short, Ms. Ramirez is a 68 year old woman with history of who is admitted for work up of stroke like symptoms. Her report of symptoms is feeling so "tired" that she couldn't wake up and that prompted her visit with her PCP who was concern over the stroke like symptoms. Patient without symptoms at time of exam. GENERAL APPEARANCE: AxOx4, generally well-appearing female no acute distress. HEENT: NC, AT. MMM. EOMI, clear conjunctiva, oropharynx clear. NECK: Supple without lymphadenopathy. No stiffness or restricted ROM. HEART: Normal rate and regular rhythm, normal S1/S1, no m/r/g LUNGS: CTAB, moving air well. No crackles or wheezes are heard. ABDOMEN: Soft, nontender, nondistended with good bowel sounds heard. EXTREMITIES: Without cyanosis, clubbing or edema. NEUROLOGICAL: Grossly nonfocal. Alert and oriented, moving all 4 extremities. CN not formally tested but appear grossly intact. Skin: Warm and dry without any rash. #Stroke like symptoms -asymptomatic at time of exam, if stroke work up negative consider letheragic/fatigue as sie effect of triptan given recent prescription and within realm of side effects from use Rest of plan as above I spent a total of 35 minutes coordinating, documenting, and providing care for this patient excluding time spent in the performance of separately billed services. All of the aforementioned completed outside of collaborating with the assigned advanced practitioner for a full treatment plan. I have reviewed the advanced practitioner's documentation, and I agree with, and take responsibility for the plan of care
[2023-09-05 18:49] LABS: Amphetamines+Metham, Urine Neg (Neg); Barbiturates, Urine Neg (Neg); Benzodiazepine, Urine Neg (Neg); Cocaine, Urine Neg (Neg); MDMA (Ecstacy), Urine Pos (Neg); Marijuana, Urine Neg (Neg); Methadone, Urine Neg (Neg); Opiate, Urine Neg (Neg); Phencyclidine, Urine Neg (Neg)
[2023-09-05] MEDS ORDERED: POLYETHYLENE (MIRALAX) 17 GM PACK PO PRN (20:44)
[2023-09-05] MEDS ORDERED: PHARMACIST DISCHARGE MED REC CONSULT PRN (20:44)
[2023-09-05] MEDS ORDERED: ONDANSETRON INJ 2 MG/ML 2 ML VIAL IV PRN (20:44)
[2023-09-05] MEDS ORDERED: ACETAMINOPHEN 325 MG TAB PO PRN (20:44)
[2023-09-05] MEDS: LORazepam 1 MG/1 ML SYR ED Inj Use ONE (21:38)
[2023-09-05] MEDS ORDERED: HEPARIN SOD 5,000 UNIT/0.5 ML VIAL SQ SCH (22:00)
[2023-09-05] MEDS: LORazepam 0.5 MG in SYRINGE 0.25 ML IV ONE (22:45)
[2023-09-05] MEDS: traZODone HCL 50 MG TAB PO SCH (22:59)
[2023-09-05] MEDS: METOPROLOL SUCC 50MG EXT REL TAB PO SCH (22:59)
[2023-09-05] MEDS: PANTOprazole 40 MG TAB PO SCH (22:59)
[2023-09-05] MEDS: PREGABALIN 50 MG CAP PO SCH (23:00)
--- NOTE | 2023-09-05 23:00 | Magnetic Resonance Report ---
Exam(s): MRI HEAD Without Contrast EXAM: MR Head Without Intravenous Contrast CLINICAL HISTORY: Reason for exam: stroke eval. TECHNIQUE: Magnetic resonance images of the head/brain without intravenous contrast in multiple planes. COMPARISON: 09/05/2023. FINDINGS: Brain: Mild generalized brain atrophy. Small areas of periventricular T2 hyperintensity with punctate foci in the deep white matter compatible with nonspecific microangiopathic disease. No hemorrhage. No acute infarct. Ventricles: Unremarkable. No ventriculomegaly. Bones/joints: Unremarkable. No acute fracture. Sinuses: Unremarkable as visualized. No acute sinusitis. Mastoid air cells: Unremarkable as visualized. No mastoid effusion. Orbits: Unremarkable as visualized. IMPRESSION: 1. Chronic changes as described with no acute stroke or intracranial hemorrhage 2. No intracranial space-occupying lesion. Electronically signed by: Lora Recinos MD 09/05/23 22:59 PM
[2023-09-06 04:16] LABS: Hematocrit (blood only) 41.6 % (37.0-47.0); Hemoglobin 13.4 g/dl (12.0-16.0); Mean Corpuscular Hemoglobin 27.5 pg (25.0-34.0); Mean Corpuscular Hgb Conc 32.2 g/dL (32.0-36.0); Mean Corpuscular Volume 85.2 fL (80.0-100.0); Mean Platelet Volume 11.8 fL (9.4-12.4); Platelet Count 186 K/uL (130-400); RDW Coefficient of Variation 13.6 % (11.5-14.5); RDW Standard Deviation 42.5 fL (36.4-46.3); Red Blood Count 4.88 M/uL (4.20-5.40); White Blood Count 4.93 K/ul (4.8-10.8)
[2023-09-06 04:35] LABS: BUN Creatinine Ratio 20.7 (10-20); Calcium 9.1 mg/dl (8.6-10.3); Chol HDL Ratio 2.1 (0-5); Creatinine Clr Calc Pharmacy 65.5 ml/min; Est GFR (African American) 84.6 ml/min; Potassium 3.9 mmol/L (3.5-5.1)
[2023-09-06 07:03] LABS: Estimated Average Glucose 108 mg/dl; Hemoglobin A1C 5.4 % (4.5-5.6)
[2023-09-06] MEDS: ASPIRIN 81 MG ECTAB PO SCH (08:38)
[2023-09-06] MEDS: DULoxetine HCL 30 MG CAP PO SCH (08:39)
[2023-09-06] MEDS: ATORVASTATIN 20 MG TAB PO SCH (08:39)
[2023-09-06] MEDS: DULoxetine HCL 60 MG CAP PO SCH (08:39)
--- NOTE | 2023-09-06 08:40 | Neurology Consultation ---
Date of Consultation September 06, 2023 Assessment & Plan (1) Vertigo: -patient has hx of chronic vertigo -check orthostatic VS if not already done -MRI brain and CTA are unremarkable -Given hx of migraine, possible that her vertigo is migrainous in origin, as migraine may help explain why the patient was tired and lethargic following the event yesterday -Supportive care with IV fluids and PRN meclizine, refer to PT for vestibular therapy -Keep OP f/u with Neurology in September -Neurology will sign off Telehealth Consultation Telehealth Information Telehealth Information: I performed this visit using a real-time telehealth connection between my location and the patients location ([facility]). After connecting through interactive tele-video, patient was identified by name and date of and/or wristband check.Patient (or authorized healthcare dairy supplies sales representative) was informed that this was a telemedicine visit and it was being conducted confidentially over secure lines. My office door was closed and no one else was present in the room with me.Patient (or authorized healthcare dairy supplies sales representative) provided consent to proceed with the visit, expressed an understanding of privacy and security of the telemedicine visit, and gave permission to have a hospital dairy supplies sales representative in the room in order to assist with the visit and to conduct portions of the visit, as needed. I informed the meka ent (or authorized healthcare dairy supplies sales representative) that I reviewed their record and presented the opportunity for them to ask any questions regarding the visit today. The patient agreed to participate. History of Present Illness Reason for Consultation: Stroke Like symptoms Attending Physician: Eduardo Barajas MD History of Present Illness 68 y/o F with PMHx of HTN, dyslipidemia, GERD, fibromyalgia, morse's palsy, vertigo and depression who presents with stroke like-symptoms of dizziness. Patient work with symptoms on 09/04, LKW 09/03 2200hrs. Patient went to scheduled stacker tender visit on 09/04 who referred her to the ED for her symptoms. In the ED she was noted to have NIHSS 0. She has since undergone CT, CTA head/neck, and MRI brain -- all of which have been unremarkable. Patient says that she was dizzy from this moment she woke but was able to cook lunch on the grill. She got a had headache while at the grill, it only lasted a few minutes and went away on it's own. She was very tired and kept falling asleep; her had to help her to the car; she was falling asleep in the Cardiologists office too. Today, she felt dizzy when she walked to the bathroom, but has no dizziness sitting in the bed. She gets dizziness on occasion and has for several years, but yesterday was worse. She admits to chronic hearing difficulty, admits to occasional tinnitus, no recent URI's. She has chronic migraines and sometimes gets dizzy with them, but not all the time. 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 Allergies Allergy/AdvReac Type Severity Reaction Status Date / Time morphine Allergy Intermediate SWELLING Verified 09/05/23 16:54 Penicillins Allergy Intermediate Rash Verified 09/05/23 16:54 Sulfa (Sulfonamide Allergy Intermediate Rash Verified 09/05/23 16:54 Antibiotics) Home Medications Medication Instructions Recorded Confirmed Type almotriptan malate 12.5 mg tablet 12.5 mg PO DIRECTED PRN 04/12/20 09/05/23 History Migraine Headache aspirin 81 mg tablet,delayed 81 mg PO DAILY 04/12/20 09/05/23 History release (Quan Low Dose Aspirin) atorvastatin 20 mg tablet 20 mg PO QAM 04/12/20 09/05/23 History diclofenac sodium 1 % topical gel 1 ea topical BID PRN Pain 04/12/20 09/05/23 History duloxetine 30 mg capsule,delayed 30 mg PO DAILY 04/12/20 09/05/23 History release metoprolol succinate 50 mg 50 mg PO BID 04/12/20 09/05/23 History tablet,extended release 24 hr omeprazole 40 mg capsule,delayed 40 mg PO BID 04/12/20 09/05/23 History release alendronate 70 mg tablet 70 mg PO WK 09/05/23 09/05/23 History duloxetine 60 mg capsule,delayed 60 mg PO DAILY 09/05/23 09/05/23 History release galcanezumab-gnlm 120 mg/mL 120 mg subcut MONTHLY 09/05/23 09/05/23 History subcutaneous pen injector (Emgality Pen) pregabalin 50 mg capsule 50 mg PO BID 09/05/23 09/05/23 History trazodone 150 mg tablet 150 mg PO HS 09/05/23 09/05/23 History Patient History Medical History (Updated 09/05/23 @ 19:23 by ROMEO Haynes) Osteoporosis GERD (gastroesophageal reflux disease) Depression HLD (hyperlipidemia) HTN (hypertension) Vertigo Stroke-like symptoms Fibromyalgia Migraines Aortic regurgitation Frequent PVCs Hypokalemia History of IBS Surgical History Hx of cholecystectomy H/O: hysterectomy Social History Smoking Status: Never smoker Second Hand Exposure: Yes (daughter); Do You Dip or Chew Tobacco: No; Hx Alcohol Use: No Hx Substance Use: No Preferred Language: Sammarinese Communication Ability: Effective Wash Test Checker Required: No Beliefs That Will Affect Care: None marital status: Current Living Situation: Spouse Feels Safe at Home: Yes Assistive Devices: None Physical Exam Mental Status: AOx4, no aphasia, no dysarthria, normal fund of knowledge, normal attention CN:EOMI, no nystagmus, face with trace right NL flattening, tongue midline Motor:antigravity power present in all 4 Sensory: intact Coordination: intact Reflexes: cannot be assessed via telemedicine Gait:deferred Results & Data Vital Signs (Past 12 Hours) Vital Signs Temp Pulse Pulse Resp BP BP Pulse Ox 09/06/23 08:00 73 09/06/23 07:12 36.5 C 78 20 99/53 L 99 09/06/23 04:00 66 16 111/59 L 09/06/23 04:00 111/59 L 09/06/23 03:02 69 17 92/61 L 93 09/06/23 01:00 80 20 122/80 95 09/06/23 01:00 71 18 122/87 94 09/05/23 23:07 79 09/05/23 21:20 09/05/23 21:00 78 19 148/93 H 94 Pulse Ox O2 Del Method O2 Del Method O2 Flow Rate 09/06/23 08:00 09/06/23 07:12 Room Air 09/06/23 04:00 09/06/23 04:00 09/06/23 03:02 09/06/23 01:00 09/06/23 01:00 Nasal Cannula 2 09/05/23 23:07 04/23/24 21:20 94 Room Air 09/05/23 21:00 Room Air Diagnostic Findings Brain MRI: personally reviewed, no acute findings CTA head/neck: unremarkable
--- OUTSIDE RECORDS SUMMARY | 2023-09-06 09:41 | External Medical Summary | Summary of Care ---
Author Name Unknown Organization [facility] Address [address] [place] [address] Phone [phone] Care Team Providers Care Gun Stocker Name Role Phone George Cervantes MD Primary Care Provide r Reason for Visit * Reason Comments Dosage Adjustment Via Phone (anticoag Cl inic) Encounter Details Date Type Department Care Team (Late st Contact Info) Description 09/01/2023 9:30 AM EDT Telemedicine Neurology, [place] [address] [place] [address] [place], Pharmacist Neurology [address] [place] [address] Encounter for long-term (current) use of medications*; Migraine without aura and without status migrainosus, not intractable Allergies Active Allergy Reactions Criticality Noted Date Comments Morphine And Related 02/19/2001 swelling Penicillins 02/19/2001 Rash as an adult 20+ yrs ago Sulfa Antibiotics 02/19/2001 Rash, 2010 documented as of this encounter (statuses as of 09/01/2023) Medications Medication Sig Dispensed Refills Start Date End Date Status ASPIRIN 81 MG OR TBECIndications:in am Take by mouth. 30 0 06/11/2004 Active Diclofenac Sodium 1 % gelIndications:Gene ralized osteoarthritis place 2gm topically on the skin 2 times a day to the affected area as directed 100 g 5 12/03/2019 Active Atorvastatin Calcium 20 MG Oral Tablet (Lipitor)Indication s:Hyperlipidemia with target LDL less than 100 Take by mouth 1 Tablet in the morning. 100 Tablet 3 11/21/2022 Active Alendronate Sodium 70 MG Oral Tablet (Fosamax) TAKE 1 TABLET BY MOUTH ONCE A WEEK AT LEAST 30 MINUTES BEFORE FIRST FOOD/BEVERAGE DO NOT LIE DOWN FOR 30 MINUTES AFTER TAKING 15 Tablet 3 02/17/2023 Active traZODone HCl 150 MG Oral Tablet (Desyrel)Indication s:Persistent insomnia TAKE ONE TABLET BY MOUTH AT BEDTIME 90 Tablet 3 03/28/2023 4 Active DULoxetine HCl 30 MG Oral Capsule Delayed Release Particles (Cymbalta)Indicatio ns:Generalized osteoarthritis,Dege neration of cervical intervertebral disc,Fibromyalgia TAKE ONE CAPSULE BY MOUTH ONCE DAILY. DO NOT CRUSH CUT OR CHEW. TAKE WITH 60MG DOSE FOR A TOTAL OF 90MG DAILY 100 Capsule 1 04/21/2023 4 Active Omeprazole 40 MG Oral Capsule Delayed Release (PriLOSEC)Indicatio ns:Reflux esophagitis TAKE ONE CAPSULE BY MOUTH TWO TIMES A DAY 180 Capsule 1 05/14/2023 4 Active Metoprolol Succinate ER 50 MG Oral Tablet Extended Release 24 Hour (toPROL XL)Indications:Vent ricular ectopic beat,Palpitations TAKE ONE TABLET BY MOUTH EVERY MORNING AND TAKE ONE TABLET BY MOUTH EVERY DAY BEFORE BEDTIME 180 Tablet 3 05/24/2023 Active Pregabalin 50 MG Oral Capsule (Lyrica)Indications :Fibromyalgia TAKE ONE CAPSULE BY MOUTH EVERY MORNING AND ONE CAPSULE BEFORE BEDTIME 180 Capsule 1 08/11/2023 4 Active DULoxetine HCl 60 MG Oral Capsule Delayed Release Particles (Cymbalta)Indicatio ns:Fibromyalgia,Chr onic midline thoracic back pain,Chronic midline low back pain without sciatica TAKE ONE CAPSULE BY MOUTH EVERY MORNING 90 Capsule 3 08/13/2023 5 Active Almotriptan Malate 12.5 MG Oral Tablet TAKE ONE TABLET BY MOUTH AT ONSET OF MIGRAINE. MAY REPEAT IN 2 HOURS. MAX DOSE 2 TABLETS IN 24 HOURS 10 Tablet 3 08/22/2023 5 Active Galcanezumab-gnlm 120 MG/ML Subcutaneous Solution Auto-injector (Emgality)Indicatio ns:Migraine without aura and without status migrainosus, not intractable Inject 1 ml (1 pen) under the skin once a month 1 mL 7 09/01/2023 Active Galcanezumab-gnlm 120 MG/ML Subcutaneous Solution Auto-injector (Emgality) Inject 2 ml (2 pens) under the skin for the first dose then 1 ml (1 pen) under the skin once a month thereafter 2 mL 5 06/12/2023 4 Discontinu ed(Refill) documented as of this encounter (statuses as of 09/01/2023) Active Problems Problem Noted Date Diagnosed Date Major depressive disorder, single episode, mild 07/12/2022 Age-related osteoporosis wit hout current pathological fracture 07/12/2022 Hypertensive kidney disease with stage 3a chronic kidney disease 06/29/2022 HTN, goal below 140/90 08/10/2020 Interstitial lung disease 03/29/2019 Ventricular ectopic beat 09/17/2018 Dyslipidemia, goal LDL below 100 09/17/2018 Mild persistent asthma without complication 06/[address] of the chest 12/25/2017 Sleep disorder 12/25/2017 Renal artery aneurysm 10/30/2017 Irritable bowel syndrome with diarrhea 8 Mild aortic regurgitation 05/31/2016 Moderate mitral regurgitation 05/31/2016 Fibromyalgia 10/13/2011 ADVANCE DIRECTIVE INFORMATION 07/07/2005 Overview: No, Advance Directive brochure given to patient at prior appointment. CERVICAL DISC DEGEN 04/05/2004 Persistent insomnia 06/21/2002 Migraine without aura and wi thout status migrainosus, not intractable Reflux esophagitis GENERAL OSTEOARTHROSIS Idiopathic scoliosis documented as of this encounter (statuses as of 09/01/2023) Resolved Problems Problem Noted Date Diagnosed Date Resolved Date Chronic kidney disease, stage 3a 06/27/2022 02/07/2023 Overview: Per CKD protocol Abnormal PFT 12/25/2017 03/29/2019 Pulmonary hypertension 10/09/201401/10 Enthesopathy of hip 06/27/2003 03/07/20 17 ABNORMAL FINDINGS-BREAST 10/30/2002 Excessive menstruation 06/21/200204/29 Diarrhea 06/07/2016 documented as of this encounter (statuses as of 09/01/2023) Immunizations Name Administration Dates Next Due COVID-19 mRNA, LNP-s, No Pre serve, 2-Dose Series (Stumpedia) 03/08/2021,07/25/2020,07/04/2020 H1N1 2009 Influenza, IM 05/15/2009 Pneumococcal Conjugate Vacc, 13 Valent (Prevnar) 12/03/2019 Pneumococcal Polysaccharide PPV23 (Pneumovax) 01/12/2022,10/07/2014 Season Influenza, Quad, PF, Adjuvanted, 65+ Yrs, IM (FLUAD) 04/01/2021,01/09/2020 Seasonal Influenza, PF, 6 M & above, IM , (FluLaval or Fluzone) 01/16/2018,01/27/2017 Seasonal Influenza, Quadriva lent Hd (Fluzone Hd) 02/07/2023 Seasonal Influenza, Quadriva lent Hd, 65+ Yrs 01/09/2020 Seasonal Influenza, Quadriva lent, No Preserve, IM 01/31/2018,02/26/2016 Seasonal Influenza, Split, I IV3, With Preserve, Inj 02/12/2015,04/17/2014,03/15/2013,05/17,02/26/2009,03/29/2007,02/12/2006 Seasonal Influenza, Trivalen t, Adjuvanted, 65+ yrs 02/12/2019 TDAP (age 11 and older)(Adacel) 07/14/2008 Varicella Zoster Vaccine (Adult) 11/26/2015 Zoster Vaccine Recombinant (Shingrix) 04/01/2020 ,01/09/2020 documented as of this encounter Social History Tobacco Use Types Packs/Day Years Used Date Smoking Tobacco: Never Smokeless Tobacco: Never Alcohol Use Standard Drinks/Week Comments Not Currently 0 (1 standard drink = 0.6 oz pur e alcohol) rarely PHQ-2 Answer Date Recorded PHQ Adult Total Score 0 03/22/2023 Hunger Vital Sign Answer Date Recorded Within the past 12 months, y ou worried that your food would run out before you got the money to buy more. Never true 03/22/20 23 Within the past 12 months, t he food you bought just didn't last and you didn't have money to get more. Never true 03/22/2023 Sex and Gender Information Value Date Recorded Sex Assigned at Female 03/22/2023 3:10 PM EST Gender Identity Female 03/22/2023 3:10 PM EST Sexual Orientation Straight 03/22/2023 3: 10 PM EST Job Start Date Occupation Industry Not on file Not on file Not on file documented as of this encounter Progress Notes * Deanna Carlson, [facility] - 09/01/2023 9:34 AM EDT Clinical Pharmacy Service (Neurology): Medication Management After connecting to the patient via telephone, the patient was identified by name and date of . Patient was then informed that this was a telephone call only visit. The patient agreed to participate. Visit Disposition: Routine follow-up Total call duration was 5 minutes. Name: Joana Ramirez Diagnosis: Migraine CURRENT MEDICATION REGIMEN (as documented in last office visit on 06/12/[address] Adair) Emgality 120 mg once monthly (started May 2023) Almotriptan 12.5 mg PRN Any new medication/OTC/herbals since last visit?: no new medications/OTC/herbals. CGRP mAb MEDICATION USE ASSESSMENT Adherence to all above active medications used for migraine: Were any of your last three doses administered outside of the due date? No. Patient is diligent with injecting on the of each month. Any issues obtaining your prescription for your cGRP mAb: no Allergic / Local Reactions Reported: no How long do these last: N/A What makes better: N/A Side Effects Reported: none DISEASE ACTIVITY and IMPACT ASSESSMENT Migraine Disability Assessment Test Number of Days On how many days in the last 3 months did you miss work or school because of your headaches? 2 How many days in the last 3 months was your productivity at work or school reduced by half or more because of your headaches? (Do not include days you counted in question 1 where you missed work or school.) 0 On how many days in the last 3 months did you not do household work (such as housework, home repairs and maintenance, shopping, caring for children and relatives) because of your headaches? 2 How many days in the last 3 months was your productivity in household work reduced by half of more because of your headaches? (Do not include days you counted in question 3 where you did not do household work.) 2 On how many days in the last 3 months did you miss family, social or leisure activities because of your headaches? 0 Total Score: 6 MIDAS Grade Definition MIDAS Score I - Little or No Disability: 0-5 II - Mild Disability: 6-10 III - Moderate Disability: 11-20 IV - Severe Disability: 21+ ASSESSMENT / PLAN The patient was educated on when to contact neurology office/provider to include change in headachesymptoms or characteristics, worsened interference with quality of life, adverse drug effects, using excess pain relievers, or coughing/sneezing that causes headache. The patient was advised to seek urgent medical care if experiencing headache with accompanying alarming symptoms including but not limited to confusion, dizziness, slurred speech, vision loss, numbness, SOB, fever, and/or persistentvomiting/diarrhea. Patient reports doing well on Emgality. Denies side effects or missed doses. She has been on the medication for about 3 months and her headache days have been reduced from daily to 6 days in the pastthree months. Continue headache plan outlined by provider. Patient denies the need for refills of above medications before recommended follow up interval. Aware to contact pharmacy or office about one week before refill is due when needed. Next Neurology Provider Office Visit/Appt: 09/14/23 Deanna Carlson RPh [facility] Clinical Pharmacist Neurology Department 09/01/2023,9:23 AM documented in this encounter Plan of Treatment Upcoming Encounters Date Type Department Care Team (Late st Contact Info) Description 09/05/2023 2:00 PM EDT Office Visit Cardiology [address] [place] [address] Surjit Zamarripa PA-C [address] [facility] [place] [address] 09/14/2023 1:00 PM EDT Office Visit Neurology [facility]o [place] [address] [facility] [place] [address] Clarisa Adair MD [address] [facility] [place] [address] 09/27/2023 1:20 PM EDT [facility] [place] [facility] [place] [phone] Lashay Lundberg, DO [address] [place] [address] 01/23/2024 1:40 PM EDT Office Visit Family Medicine [address] [place] [phone] George Cervantes MD [address] [place] [address] [place] [address] 02/19/2024 1:30 PM EDT Imaging Radiology [address] [place] [address] 03/25/2024 2:30 PM EST Nurse Only Ancillary [address] [place] [address] [place], Nurse Annual [address] [place] [address] Scheduled Procedures Name Priority Associated Diagnoses Date/Ti me COLONOSCOPY FLEXIBLE PROXIMA L DIAGNOSTIC Recall History of colonic polyps Health Maintenance Due Date Last Done Comments DTaP,Tdap,and Td Vaccines (2 - Td or Tdap) 07/14/2018 07/14/2008, 11/19/1991 COVID-19 Vaccine ( - 2022- season) 2023 03/08/2021, 07/25/2020, 07/04/2020 Albumin/Creatinine Ratio 05/30/2023 05/30/2022 GFR 08/08/2023 02/07/2023, 12/13, 05/30/2022, Additional history exists DXA Scan 08/25/2023 08/24/2021, 08/24/2021 CKD HGB USE SMARTSET 76076 12/30/202312/29, 05/30/2022, 05/30/2022, Additional history exists CKD PHOS USE SMARTSET 13958 02/08/2024 02/07/2023 Mammogram 02/14/2024 02/13/2023, 1006/2022, 01/11/2022, Additional history exists Diabetes Screening 02/07/2026 02/07/2023, 0 02/07/2023, 12/29/2022, Additional history exists COLONOSCOPY-EVERY 5 YRS AGES 18-100 12/20/2027 12/19/2022, 12/19/2022, 10/02/2012, Additional history exists Lipid Panel 12/30/2027 12/29/2022, 04/0 08/2021, 07/30/2020, Additional history exists Fecal Occult Blood Test Discontinued 10/23/2001 Zoster Vaccines Completed 04/01/2020, 2 11/2019, 11/26/2015 Pneumococcal Vaccine: 65+ Years Completed 01/12/2022, 12/03/2019, 10/07/2014 VITAMIN D LEVEL ONCE IN A LIFETIME-USE SMARTSET# [id number] Completed 05/30/2022 Cologuard Discontinued 07/26/2022, 030 10/2022, 07/18/2022 Colonoscopy Discontinued 12/19/2022, 080 11/2022, 10/02/2012, Additional history exists Colorectal Cancer Screening Discontinued Influenza Vaccine (FLU shot) Completed 02/07/2023, 04/01/2021, 01/09/2020, Additional history exists GARDASIL-HPV IMMUNIZATION SERIES Aged Out No longer eligible based on patient's age to complete this topic Hepatitis B Aged Out No longer eligi ble based on patient's age to complete this topic MENINGOCOCCAL (MENACTRA/MENVEO) Aged Out No longer eligible based on patient's age to complete this topic Sigmoidoscopy Discontinued documented as of this encounter Medical Devices Not on filedocumented as of this encounter Visit Diagnoses Diagnosis Encounter for long-term (current) use of medications- Primary Encounter for long-term (current) use of other medications Migraine without aura and without status migrainosus, not intractable Migraine without aura, without mention of intractable migraine without mention of status migrainosus documented in this encounter Care Teams Gun Stocker Relationship Specialty Start Date End Date George Cervantes MD [address] [place] [address] [place] [address] PCP - General Family Medicine 10/07/14 documented as of this encounter
--- OUTSIDE RECORDS SUMMARY | 2023-09-06 09:41 | External Medical Summary | Summary of Care ---
Author Name Unknown Organization [facility] Address [address] [place] [address] Phone [phone] Care Team Providers Care Licensed Professional Counselor Name Role Phone George Cervantes MD Primary Care Provide r Reason for Visit * Reason Onset Date Comments Sleep Apnea Device 08/28/2023 Encounter Details Date Type Department Care Team (Late st Contact Info) Description 08/28/2023 Telephone Sleep Lab, [facility] [address] [place], [place] [id number] Brenda Mclaughlin MD [address] [place] [address] Sleep Apnea Device Allergies Active Allergy Reactions Criticality Noted Date Comments Morphine And Related 02/19/2001 swelling Penicillins 02/19/2001 Rash as an adult 20+ yrs ago Sulfa Antibiotics 02/19/2001 Rash, 2010 documented as of this encounter (statuses as of 08/28/2023) Medications Medication Sig Dispensed Refills Start Date End Date Status ASPIRIN 81 MG OR TBECIndications:in am Take by mouth. 30 0 06/11/2004 Active Diclofenac Sodium 1 % gelIndications:Gener alized osteoarthritis place 2gm topically on the skin 2 times a day to the affected area as directed 100 g 5 12/03/2019 Active Atorvastatin Calcium 20 MG Oral Tablet (Lipitor)Indications :Hyperlipidemia with target LDL less than 100 Take by mouth 1 Tablet in the morning. 100 Tablet 3 11/21/2022 Active Alendronate Sodium 70 MG Oral Tablet (Fosamax) TAKE 1 TABLET BY MOUTH ONCE A WEEK AT LEAST 30 MINUTES BEFORE FIRST FOOD/BEVERAGE DO NOT LIE DOWN FOR 30 MINUTES AFTER TAKING 15 Tablet 3 02/17/2023 Active traZODone HCl 150 MG Oral Tablet (Desyrel)Indications :Persistent insomnia TAKE ONE TABLET BY MOUTH AT BEDTIME 90 Tablet 3 03/28/2023 4 Active DULoxetine HCl 30 MG Oral Capsule Delayed Release Particles (Cymbalta)Indication s:Generalized osteoarthritis,Degen eration of cervical intervertebral disc,Fibromyalgia TAKE ONE CAPSULE BY MOUTH ONCE DAILY. DO NOT CRUSH CUT OR CHEW. TAKE WITH 60MG DOSE FOR A TOTAL OF 90MG DAILY 100 Capsule 1 04/21/2023 4 Active Omeprazole 40 MG Oral Capsule Delayed Release (PriLOSEC)Indication s:Reflux esophagitis TAKE ONE CAPSULE BY MOUTH TWO TIMES A DAY 180 Capsule 1 05/14/2023 4 Active Metoprolol Succinate ER 50 MG Oral Tablet Extended Release 24 Hour (toPROL XL)Indications:Ventr icular ectopic beat,Palpitations TAKE ONE TABLET BY MOUTH EVERY MORNING AND TAKE ONE TABLET BY MOUTH EVERY DAY BEFORE BEDTIME 180 Tablet 3 05/24/2023 Active Galcanezumab-gnlm 120 MG/ML Subcutaneous Solution Auto-injector (Emgality) Inject 2 ml (2 pens) under the skin for the first dose then 1 ml (1 pen) under the skin once a month thereafter 2 mL 5 06/12/2023 Active Pregabalin 50 MG Oral Capsule (Lyrica)Indications: Fibromyalgia TAKE ONE CAPSULE BY MOUTH EVERY MORNING AND ONE CAPSULE BEFORE BEDTIME 180 Capsule 1 08/11/2023 4 Active DULoxetine HCl 60 MG Oral Capsule Delayed Release Particles (Cymbalta)Indication s:Fibromyalgia,Chron ic midline thoracic back pain,Chronic midline low back pain without sciatica TAKE ONE CAPSULE BY MOUTH EVERY MORNING 90 Capsule 3 08/13/2023 5 Active Almotriptan Malate 12.5 MG Oral Tablet TAKE ONE TABLET BY MOUTH AT ONSET OF MIGRAINE. MAY REPEAT IN 2 HOURS. MAX DOSE 2 TABLETS IN 24 HOURS 10 Tablet 3 08/22/2023 5 Active documented as of this encounter (statuses as of 08/28/2023) Active Problems Problem Noted Date Diagnosed Date [...] as of this encounter (statuses as of 08/28/2023) Resolved Problems Problem Noted Date Diagnosed Date Resolved Date Chronic kidney disease, stage 3a 06/27/2022 02/07/2023 Overview: Per CKD protocol Abnormal PFT 12/25/2017 03/29/2019 Pulmonary hypertension 10/09/201401/10 Enthesopathy of hip 06/27/2003 03/07/20 17 ABNORMAL FINDINGS-BREAST 10/30/2002 Excessive menstruation 06/21/200204/29 Diarrhea 06/07/2016 documented as of this encounter (statuses as of 08/28/2023) Immunizations Name Administration Dates Next Due COVID-19 mRNA, LNP-s, No Pre serve, 2-Dose Series (Tumbie) 03/08/2021,07/25/2020,07/04/2020 H1N1 2009 Influenza, IM 05/15/2009 Pneumococcal [...] on file documented as of this encounter Miscellaneous Notes * Telephone Encounter - Kena Herrera, RPSGT - 08/28/2023 2:44 PM EDT Data downloaded, verified and scored. Physician notified that the OCST study is ready for review and interpretation. HST ordered by Dr. Lundberg @ [facility] . Lizette out: 10:39 pm to L on: 6:36 am CHARLETTE: 12.7 (3%) Lowest SpO2: 78% 5.1 (4%) Study routed to Dr. Lundberg in [place]. ESS: 4 documented in this encounter Plan of Treatment Upcoming Encounters Date Type Department Care Team (Late st Contact Info) Description 09/05/2023 2:00 PM EDT Office Visit Cardiology [address] [place] [address] Surjit Zamarripa PA-C [address] [place] [address] 09/14/2023 1:00 PM EDT Office Visit Neurology [facility] [address] [facility] [place] [address] Clarisa Adair MD [address] [facility] [place] [address] 09/27/2023 1:20 PM EDT Office Visit Sleep Disorders Ctr [facility] [address] [place] [phone] Lashay Lundberg DO [address] [place] [address] 01/23/2024 1:40 PM EDT Office Visit Family Medicine [address] [place] [phone] George Cervantes MD [address] [place] [address] [place] [address] 02/19/2024 1:30 PM EDT Imaging Radiology [address] [place] [address] 03/25/2024 2:30 PM EST Nurse Only Ancillary [address] [place] [address] [place], Nurse [address] [place] [address] Scheduled Procedures Name Priority Associated Diagnoses Date/Ti me COLONOSCOPY FLEXIBLE PROXIMA L DIAGNOSTIC Recall History of colonic polyps Health Maintenance Due Date Last Done Comments DTaP,Tdap,and Td Vaccines (2 - Td or Tdap) 07/14/2018 07/14/2008, 11/19/1991 COVID-19 Vaccine (4 - 2022- season) 2023 03/08/2021, 07/25/2020, 07/04/2020 Albumin/Creatinine Ratio 05/30/2023 05/30/2022 GFR 08/08/2023 02/07/2023, 12/13, 05/30/2022, Additional history exists DXA Scan 08/25/2023 08/24/2021, 08/24/2021 CKD HGB USE SMARTSET 13672 12/30/202312/29, 05/30/2022, 05/30/2022, Additional history exists CKD PHOS USE SMARTSET 36152 02/08/2024 02/07/2023 Mammogram 02/14/2024 02/13/2023, 1006/2022, 01/11/2022, Additional history exists Diabetes Screening 02/07/2026 02/07/2023, 0 02/07/2023, 12/29/2022, Additional history exists COLONOSCOPY-EVERY 5 YRS AGES 18-100 12/20/2027 12/19/2022, 12/19/2022, 10/02/2012, Additional history exists Lipid Panel 12/30/2027 12/29/2022, 04/0 08/2021, 07/30/2020, Additional history exists Fecal Occult Blood Test Discontinued 10/23/2001 Zoster Vaccines Completed 04/01/2020, 12/14, 11/26/2015 Pneumococcal Vaccine: 65+ Years Completed 01/12/2022, 12/03/2019, 10/07/2014 VITAMIN D LEVEL ONCE IN A LIFETIME-USE SMARTSET# [id number] Completed 05/30/2022 Cologuard Discontinued 07/26/2022, 10/2022, 07/18/2022 Colonoscopy Discontinued 12/19/2022, 11/2022, 10/02/2012, Additional history exists Colorectal Cancer [...] Not on filedocumented as of this encounter Care Teams Licensed Professional Counselor Relationship Specialty Start Date End Date George Cervantes MD [address] [place] [address] [place] [address] PCP - General Family Medicine 10/07/14 documented as of this encounter
--- OUTSIDE RECORDS SUMMARY | 2023-09-06 09:41 | External Medical Summary | Summary of Care ---
Author Name Unknown Organization [facility] Address [address] [place] [address] Phone [phone] Care Team Providers Care Chimney Builder Brick Name Role Phone George Cervantes MD Primary Care Provide r Reason for Visit * Reason Comments Dosage Adjustment Via Phone (anticoag Cl inic) Encounter Details Date Type Department Care Team (Late st Contact Info) Description 09/01/2023 7:30 AM EDT Pharmacy Neurology, [place] [address] [place] [address] [place], Pharmacist Neurology [address] [place] [address] Encounter for long-term (current) use of medications* Allergies Active Allergy Reactions Criticality Noted Date [...] mRNA, LNP-s, No Pre serve, 2-Dose Series ([employer]) 03/08/2021,07/25/2020,07/04/2020 H1N1 2009 Influenza, IM 05/15/2009 Pneumococcal [...] of this encounter Progress Notes * Deanna Carlson RPh - 09/01/2023 9:23 AM EDT See telemed. documented in this encounter Plan of Treatment Upcoming Encounters Date Type Department Care Team (Late st Contact Info) Description 09/05/2023 2:00 PM EDT Office Visit Cardiology [address] [place] [address] Surjit Zamarripa PA-C [address] [place] [address] 09/14/2023 1:00 PM EDT Office Visit Neurology [facility] [address] [place] [address] Clarisa Adair MD [address] [place] [address] 09/27/2023 1:20 PM EDT Office Visit Sleep Disorders Ctr [facility] [address] [place] [phone] Lashay Lundberg DO [address] [place] [address] 01/23/2024 1:40 PM EDT Office Visit Family Medicine [address] [place] [phone] George Cervantes MD [address] [place] [address] [place] [address] 02/19/2024 1:30 PM EDT Imaging Radiology [address] [place] [address] 03/25/2024 2:30 PM EST Nurse Only Ancillary [address] [place] [address] [place], Nurse Annual [address] [place] [address] Scheduled Procedures Name Priority Associated Diagnoses Date/Ti [...] 08/25/2023 08/24/2021, 08/24/2021 CKD HGB USE SMARTSET 58697 12/30/202312/29, 05/30/2022, 05/30/2022, Additional history exists CKD PHOS USE SMARTSET 97510 02/08/2024 02/07/2023 Mammogram 02/14/2024 02/13/2023, 1006/2022, 01/11/2022, Additional history exists Diabetes Screening 02/07/2026 02/07/2023, 0 02/07/2023, 12/29/2022, Additional history exists COLONOSCOPY-EVERY 5 YRS AGES 18-100 12/20/2027 12/19/2022, 12/19/2022, 10/02/2012, Additional history exists Lipid Panel 12/30/2027 12/29/2022, 040 08/2021, 07/30/2020, Additional history exists Fecal Occult Blood Test Discontinued 10/23/2001 Zoster Vaccines Completed 04/01/2020, 12/14, 11/26/2015 Pneumococcal Vaccine: 65+ Years Completed 01/12/2022, 12/03/2019, 10/07/2014 VITAMIN D LEVEL ONCE IN A LIFETIME-USE SMARTSET# 92432 Completed 05/30/2022 Cologuard Discontinued 07/26/2022, 0 10/2022, 07/18/2022 Colonoscopy Discontinued 12/19/2022, 11/2022, 10/02/2012, [...] for long-term (current) use of other medications documented in this encounter Care Teams Chimney Builder Brick Relationship Specialty Start Date End Date George Cervantes MD [address] [place] [address] [place] [phone] PCP - General Family Medicine 10/07/14 documented as of this encounter
--- OUTSIDE RECORDS SUMMARY | 2023-09-06 09:42 | External Medical Summary | Summary of Care ---
Author Name Unknown Organization [facility] Address [address] [place] [address] Phone [phone] Care Team Providers Care City Supervisor Name Role Phone George Cervantes MD Primary Care Provide r Reason for Visit * Reason Comments NEW PATIENT Here new sleep. Palp ations and fatigue. Hypersomnolence. Snores. * Evaluate & Treat - Unlimited Visits (Within 30 days (routine)) - Authorized Specialty Diagnoses / Procedures Referred By Glenn [email or web address] Referred To Contact Sleep Medicine / Sleep Disorders Diagnoses Palpitations Fatigue, unspecified type Hypersomnolence Surjit Zamarripa PATyron [address] [place] [address] Referral ID Status Reason Start Date Expiration Date Visits Requested Visits Authorized [id number] Authorized Specialty Services Required 12/29/2022 2 2 Encounter Details Date Type Department Care Team (Late st Contact Info) Description 06/21/2023 1:40 PM EST Office Visit Sleep Disorders Ctr [facility] [address] [place] [phone] Lashay Lundberg DO [address] [place] [address] Snoring*; Fatigue, unspecified type; HTN, goal below 140/90; Persistent insomnia; Migraine without aura and without status migrainosus, not intractable; Sleep apnea, unspecified type Allergies Active Allergy Reactions Criticality Noted Date Comments Morphine And Related 02/19/2001 swelling Penicillins 02/19/2001 Rash as an adult 20+ yrs ago Sulfa Antibiotics 02/19/2001 Rash, 2010 documented as of this encounter (statuses as of 06/21/2023) Medications Medication Sig Dispensed Refills Start Date End Date Status ASPIRIN 81 MG OR TBECIndications:in am Take by mouth. 30 0 06/11/2004 Active Diclofenac Sodium 1 % gelIndications:Gener alized osteoarthritis place 2gm topically on the skin 2 times a day to the affected area as directed 100 g 5 12/03/2019 Active Additional Information Patient not taking.Reported on 06/12/2023 DULoxetine HCl 60 MG Oral Capsule Delayed Release Particles (Cymbalta)Indication s:Fibromyalgia,Chron ic midline thoracic back pain,Chronic midline low back pain without sciatica TAKE ONE CAPSULE BY MOUTH EVERY MORNING 90 Capsule 3 08/15/2022 4 Active Atorvastatin Calcium 20 MG Oral Tablet (Lipitor)Indications :Hyperlipidemia with target LDL less than 100 Take by mouth 1 Tablet in the morning. 100 Tablet 3 11/21/2022 Active Additional Information Patient not taking.Reported on 06/12/2023 Pregabalin 50 MG Oral Capsule (Lyrica)Indications: Fibromyalgia TAKE ONE CAPSULE BY MOUTH EVERY MORNING AND ONE CAPSULE BEFORE BEDTIME 180 Capsule 1 02/14/2023 4 Active Alendronate Sodium 70 MG Oral Tablet [...] DAY 180 Capsule 1 05/14/2023 4 Active Almotriptan Malate 12.5 MG Oral Tablet TAKE ONE TABLET BY MOUTH AT ONSET OF MIGRAINE. MAY REPEAT IN 2 HOURS. MAX DOSE 2 TABLETS IN 24 HOURS 10 Tablet 3 05/23/2023 5 Active Metoprolol Succinate ER 50 MG Oral [...] month thereafter 2 mL 5 06/12/2023 Active documented as of this encounter (statuses as of 06/21/2023) Active Problems Problem Noted Date Diagnosed Date [...] as of this encounter (statuses as of 06/21/2023) Resolved Problems Problem Noted Date Diagnosed Date Resolved Date Chronic kidney disease, stage 3a 06/27/2022 02/07/2023 Overview: Per CKD protocol Abnormal PFT 12/25/2017 03/29/2019 Pulmonary hypertension 10/09/201401/10 Enthesopathy of hip 06/27/2003 03/07/20 17 ABNORMAL FINDINGS-BREAST 10/30/2002 Excessive menstruation 06/21/200204/29 Diarrhea 06/07/2016 documented as of this encounter (statuses as of 06/21/2023) Immunizations Name Administration Dates Next Due COVID-19 mRNA, LNP-s, No Pre serve, 2-Dose Series ([employer]) 03/08/2021,07/25/2020,07/04/2020 H1N1 2009 Influenza, IM 05/15/2009 Pneumococcal [...] on file documented as of this encounter Last Filed Vital Signs Vital Sign Reading Time Taken Comments Blood Pressure 116/80 06/21/2023 1:27 PM EST Pulse 84 06/21/2023 1:27 PM EST Temperature 37.2 C (98.9 F) 06/21/2023 1:27 PM ES T Respiratory Rate 16 06/21/2023 1:27 PM EST Oxygen Saturation 96% 06/21/2023 1:27 PM EST Inhaled Oxygen Concentration - - Weight 77.1 kg (170 lb) 06/21/2023 1:27 PM EST Height 158.1 cm (5' 2.25") 06/21/2023 1:27 PM ES T Body Mass Index 30.84 06/21/2023 1:27 PM EST documented in this encounter Patient Instructions * Patient Instructions* Lashay Lundberg DO - 06/21/2023 2:03 PM EST OBSTRUCTIVE SLEEP APNEA We are concerned that you may have obstructive sleep apnea. Obstructive sleep apnea is when someonehas difficulties with breathing only during sleep. This typically happens without the patient beingaware they are having breathing issues. Obstructive sleep apnea is very common. It can be seen in kids and adults. It can cause symptoms of excessive daytime sleepiness, fatigue, morning headaches, and poor memory and cognition. It can also lead to difficulties at work or school and motor vehicle accidents. If left untreated, it puts people at risk for heart attacks, strokes, and diabetes. We diagnose obstructive sleep apnea with either an in-lab sleep study or a home sleep apnea test. More information can be obtained at: [email or web address] documented in this encounter Progress Notes * Lashay Lundberg, - 06/21/2023 1:44 PM EST Sleep Medicine Evaluation Vannesa Mclaughlins [address] [place] [address] Consultation was requested by: Surjit Zamarripa PA-C for: palpitations, fatigue, hypersomnolence, suspected sleep apnea and a copy of this report is being sent to the provider electronically. Relevant available records reviewed. HPI: Joana Ramirez is a(n) 68 year old female presenting for evaluation of suspected sleep apnea. Snoring has been going on for years. She takes trazodone at 10 PM. Patient reports a typical bedtime of 11 PM. It takes right away to about a half-hour to fall asleep. Patient awakens 2 times overnight to urinate. It takes not long to return to sleep. Patient awakens for the day at 6-7 AM, feeling still tired. Patient does feel tired during the day. Always tired, sometimes gets sleepy too. Patient does sometimes take naps. Only if she has a migraine. Patient does use caffeine, tea and soda. The patient reports having ("+" indicates reports, "-" indicates denies): + Snoring - Observed apneas - Choking/gasping awakenings + Mouth breathing - Acid reflux at night + Nocturia + Morning headaches, migraines most mornings. - Night sweats - Teeth grinding Restless Legs Syndrome Symptoms ("+" indicates reports, "-" indicates denies): + Pain/discomfort in legs at night - Urge to move legs at night Parasomnias Symptoms ("+" indicates reports, "-" indicates denies): - Sleepwalking - Dream-enactment Excessive Daytime Sleepiness: Riverside Sleepiness Scale 4 Modified F.O.S.Q. 37 - Drowsy driving (she does not drive) - Sleepy with sedentary activity Travel Screening Question 06/21/2023 1:19 PM EST - Filed by Patient Do you have any of the following new or worsening symptoms? None of these Have you recently been in contact with someone who was sick? No / Unsure Riverside Sleepiness Scale Question 06/21/2023 1:25 PM EST - Filed by Patient What is the chance you will doze off in the following situation? Sitting and reading Slight chance of dozing Watching TV Moderate chance of dozing Sitting inactive in a public place, such as a theater or meeting No chance of dozing As a passenger in a car for an hour without a break Slight chance of dozing Lying down to rest in the afternoon when circumstances permit No chance of dozing When sitting and talking to someone No chance of dozing When sitting quietly after lunch without alcohol No chance of dozing In a car, while stopped for a few minutes in traffic No chance of dozing Score (range: 0 - 24) 4 Functional Outcomes Of Sleep Question 06/21/2023 1:26 PM EST - Filed by Patient Please complete the following questions. Do you have difficulty concentrating because you are sleepy or tired? No Do you have difficulty remembering things because you are sleepy or tired? Yes, a little Do you have difficulty operating a motor vehicle for short distances (less than 100 miles) because you become sleepy? No Do you have difficulty operating a motor vehicle for long distances (more than 100 miles) because you become sleepy? No Do you have difficulty visiting family or friends in their home because you become sleepy or tired?No Has your relationship with family, friends, or work colleagues been affected because you are sleepyor tired? No Do you have difficulty watching a movie or video because you become sleepy or tired? No Do you have difficulty being as active as you want to be in the evening because you are tired or sleepy? No Do you have difficulty being as active as you want to be in the morning because you are tired or sleepy? Yes, moderate Has your mood been affected because you are sleepy or tired? No Score (range: 10 - 40) 37 Prior sleep study: none PMH: Past Medical History: Diagnosis Date Diarrhea since cholecystectomy Fibromyalgia 10/13/2011 Generalized osteoarthritis Idiopathic scoliosis Irritable bowel syndrome with diarrhea 09/12/2017 Migraine without aura Mild aortic regurgitation 05/31/2016 Mild persistent asthma without complication 07/10/2018 Moderate mitral regurgitation 05/31/2016 Persistent insomnia 06/21/2002 Reflux esophagitis Renal artery aneurysm (HCC) 10/30/2017 Interstitial lung disease Mild persistent asthma HTN Past Surgical History: Procedure Laterality Date COLONOSCOPY 10/18/2005 Dr. Peterson COLONOSCOPY, DIAGNOSTIC (RECTUM) 10/02/2012 COLONOSCOPY FLEXIBLE PROXIMAL DIAGNOSTIC performed by Daisy Rios DO at ENDOSCOPY [facility] COLONOSCOPY, DIAGNOSTIC (RECTUM) 12/19/2022 biopsies show hyperplastic polyps/recall 5 years/COLONOSCOPY FLEXIBLE PROXIMAL DIAGNOSTIC performedby Ifeoma Peña MD at ENDOSCOPY [facility] EGD, FLEXIBLE, DIAGNOSTIC 10/02/2012 UPPER GI ENDOSCOPY DIAGNOSTIC performed by Daisy Rios DO at [facility]COPY [facility] EGD, FLEXIBLE, DIAGNOSTIC 12/11/2019 gastritis/biopsies show inflammatory changes in stomach/ESOPHAGOGASTRODUODENOSCOPY (EGD), FLEXIBLE,TRANSORAL, DIAGNOSTIC performed by Daisy Rios DO at ENDOSCOPY [facility] EGD, FLEXIBLE, W/BIOPSY 01/09/2007 path-normal EGD, W/ENDOSCOPIC US 11/27/2008 LAPAROSCOPY; CHOLECYSTECTOMY 06/06/1995 MAMMOGRAM SCREENING BILATERAL Bilateral 11/09/2016 scattered fibroglandular densities category 1 normal REMOVAL OF OVARY/OVIDUCT(S) 08/06/2003 bilateral TOTAL ABD HYSTERECTOMY W/WO REMOVAL OF TUBE(S) 08/06/2003 Dr. Nguyen - fibroids US ABDOMEN COMPLETE 09/07/2021 cholecystecomy, fatty liver, nonobstruction right renal stone ALLERGIES: Review of patient's allergies indicates: Allergen Reactions Morphine And Related swelling Penicillins Rash as an adult 20+ yrs ago Sulfa Antibiotics Rash, 2010 MEDS: Outpatient Medications Marked as Taking for the 06/21/23 encounter (Office Visit) with Maribel Lundberg DO Medication Sig Galcanezumab-gnlm 120 MG/ML Subcutaneous Solution Auto-injector (Emgality) Inject 2 ml (2 pens) under the skin for the first dose then 1 ml (1 pen) under the skin once a month thereafter Metoprolol Succinate ER 50 MG Oral Tablet Extended Release 24 Hour (toPROL XL) TAKE ONE TABLET BY MOUTH EVERY MORNING AND TAKE ONE TABLET BY MOUTH EVERY DAY BEFORE BEDTIME Almotriptan Malate 12.5 MG Oral Tablet TAKE ONE TABLET BY MOUTH AT ONSET OF MIGRAINE. MAY REPEAT IN2 HOURS. MAX DOSE 2 TABLETS IN 24 HOURS Omeprazole 40 MG Oral Capsule Delayed Release (PriLOSEC) TAKE ONE CAPSULE BY MOUTH TWO TIMES A DAY DULoxetine HCl 30 MG Oral Capsule Delayed Release Particles (Cymbalta) TAKE ONE CAPSULE BY MOUTH ONCE DAILY. DO NOT CRUSH CUT OR CHEW. TAKE WITH 60MG DOSE FOR A TOTAL OF 90MG DAILY traZODone HCl 150 MG Oral Tablet (Desyrel) TAKE ONE TABLET BY MOUTH AT BEDTIME Alendronate Sodium 70 MG Oral Tablet (Fosamax) TAKE 1 TABLET BY MOUTH ONCE A WEEK AT LEAST 30 MINUTES BEFORE FIRST FOOD/BEVERAGE DO NOT LIE DOWN FOR 30 MINUTES AFTER TAKING Pregabalin 50 MG Oral Capsule (Lyrica) TAKE ONE CAPSULE BY MOUTH EVERY MORNING AND ONE CAPSULE BEFORE BEDTIME DULoxetine HCl 60 MG Oral Capsule Delayed Release Particles (Cymbalta) TAKE ONE CAPSULE BY MOUTH EVERY MORNING She has been on the trazodone for years. FHx: no known family history of sleep disordered breathing Social hx: Tobacco Use: Low Risk (06/21/2023) Patient History Smoking Tobacco Use: Never Smokeless Tobacco Use: Never Passive Exposure: Not on file Alcohol use: rare, in moderation Drug use: none Employment: retired PE: VITAL SIGNS: Filed Vitals: 06/21/23 1327 BP: 116/80 Pulse: 84 Resp: 16 Temp: 37.2 C (98.9 F) TempSrc: Tympanic SpO2: 96% Weight: 77.1 kg (170 lb) Height: 1.581 m (5' 2.25") Body mass index is 30.84 kg/m. GEN: Ambulatory, NAD ORAL: limited dentition Hard palate normal Oral mucous membranes moist OP: Soft palate normal Mallampati IV NECK: Circumference not enlarged RESP: Unlabored respirations Breath sounds clear, no wheezes or rales CVS: Regular rate and rhythm No murmurs or gallops NEURO: Speech clear and appropriate IMPRESSION/RECOMMENDATIONS: Snoring, fatigue, HTN - suspect LEODAN - STOP-BANG 4 (snoring, tired, HTN, and age > 50) - Discussed the pathophysiology, implications on short- and long-term health, diagnostic evaluation, and likely treatment of LEODAN - Schedule an [place] home sleep apnea test (not WatchPAT due to no Wifi) to evaluate for LEODAN. Discussed that if the HSAT does not show LEODAN, we will likely recommend in-lab PSG. - Avoid driving when sleepy/drowsy. Follow Up: Return for 3 weeks after HST. | For: 3 weeks after HST | Check-out note: [place] HST Tess and f/u after Lashay Lundberg DO documented in this encounter Nursing Notes * Tammy Contreras LPN - 06/21/2023 1:28 PM EST Chief Complaint Patient presents with NEW PATIENT Here new sleep. Palpations and fatigue. Hypersomnolence. Snores. Neck: 13". Travel Screening Question 06/21/2023 1:19 PM EST - Filed by Patient Do you have any of the following new or worsening symptoms? None of these Have you recently been in contact with someone who was sick? No / Unsure Riverside Sleepiness Scale Question 06/21/2023 1:25 PM EST - Filed by Patient What is the chance you will doze off in the following situation? Sitting and reading Slight chance of dozing Watching TV Moderate chance of dozing Sitting inactive in a public place, such as a theater or meeting No chance of dozing As a passenger in a car for an hour without a break Slight chance of dozing Lying down to rest in the afternoon when circumstances permit No chance of dozing When sitting and talking to someone No chance of dozing When sitting quietly after lunch without alcohol No chance of dozing In a car, while stopped for a few minutes in traffic No chance of dozing Score (range: 0 - 24) 4 Functional Outcomes Of Sleep Question 06/21/2023 1:26 PM EST - Filed by Patient Please complete the following questions. Do you have difficulty concentrating because you are sleepy or tired? No Do you have difficulty remembering things because you are sleepy or tired? Yes, a little Do you have difficulty operating a motor vehicle for short distances (less than 100 miles) because you become sleepy? No Do you have difficulty operating a motor vehicle for long distances (more than 100 miles) because you become sleepy? No Do you have difficulty visiting family or friends in their home because you become sleepy or tired?No Has your relationship with family, friends, or work colleagues been affected because you are sleepyor tired? No Do you have difficulty watching a movie or video because you become sleepy or tired? No Do you have difficulty being as active as you want to be in the evening because you are tired or sleepy? No Do you have difficulty being as active as you want to be in the morning because you are tired or sleepy? Yes, moderate Has your mood been affected because you are sleepy or tired? No Score (range: 10 - 40) 37 documented in this encounter Plan of Treatment Upcoming Encounters Date Type Department Care Team (Late st Contact Info) Description 06/27/2023 1:00 PM EST Office Visit Pharmacy, [address] [place] [address] [place] [address] 08/25/2023 2:00 PM EDT PulmDiagnostic Sleep Lab Shruthi Burr [address] [place] [address] [facility] [place] [address] 09/05/2023 2:00 PM EDT Office Visit Cardiology [address] [place] [address] Surjit Zamarripa PA-C [address] [place] [address] 09/14/2023 1:00 PM EDT Office Visit Neurology [facility] [address] [facility] [place] [address] Clarisa Adair MD [address] [place] [address] 09/27/2023 1:20 PM EDT Office Visit [facility] [address] [place] [phone] Lashay Lundberg DO [address] [place] [address] 01/23/2024 1:40 PM EDT Office Visit Family Medicine [address] [place] [phone] George Cervantes MD [address] [place] [address] [place] [address] 02/19/2024 1:30 PM EDT Imaging Radiology [address] [place] [address] 03/25/2024 2:30 PM EST Nurse Only Ancillary [address] [place] [address] [place], Nurse Annual [facility] [address] [place] [address] [place] [address] Scheduled Orders Name Type Priority Associated Diagnoses Orde r Schedule SLEEP TEST W/ TYPE 3 PORTABLE MONITOR, 4 CHANNEL; AT HOME Procedures Routine Snoring Fatigue, unspecified type HTN, goal below 140/90 Persistent insomnia Migraine without aura and without status migrainosus, not intractable Sleep apnea, unspecified type Ordered: 06/21/2023 Scheduled Procedures Name Priority Associated Diagnoses Date/Ti me COLONOSCOPY FLEXIBLE PROXIMA L DIAGNOSTIC Recall History of colonic polyps Health Maintenance Due Date Last Done Comments DTaP,Tdap,and Td Vaccines (2 - Td or Tdap) 07/14/2018 07/14/2008, 11/19/1991 COVID-19 Vaccine ( season) 2023 03/08/2021, 07/25/2020, 07/04/2020 Albumin/Creatinine Ratio 05/30/2023 05/30/2022 GFR 08/08/2023 02/07/2023, 12/13, 05/30/2022, Additional history exists DXA Scan 08/25/2023 08/24/2021, 08/24/2021 CKD HGB USE SMARTSET 09533 12/30/202312/29, 05/30/2022, 05/30/2022, Additional history exists CKD PHOS USE SMARTSET 50428 02/08/2024 02/07/2023 Mammogram 02/14/2024 02/13/2023, 2023, 01/11/2022, Additional history exists Depression Screening 03/22/2024 03/22/2023 Diabetes Screening 02/07/2026 02/07/2023, 0 02/07/2023, 12/29/2022, Additional history exists COLONOSCOPY-EVERY 5 YRS AGES 18-100 12/20/2027 12/19/2022, 12/19/2022, 10/02/2012, Additional history exists Lipid Panel 12/30/2027 12/29/2022, 040 08/2021, 07/30/2020, Additional history exists Fecal Occult Blood Test Discontinued 10/23/2001 Zoster Vaccines Completed 04/01/2020, 12/14, 11/26/2015 Pneumococcal Vaccine: 65+ Years Completed 01/12/2022, 12/03/2019, 10/07/2014 VITAMIN D LEVEL ONCE IN A LIFETIME-USE SMARTSET# 15841 Completed 05/30/2022 Cologuard Discontinued 07/26/2022, 10/2022, 07/18/2022 [...] as of this encounter Visit Diagnoses Diagnosis Snoring- Primary Other dyspnea and respiratory abnormality Fatigue, unspecified type HTN, goal below 140/90 Unspecified essential hypertension Persistent insomnia Persistent disorder of initiating or maintaining sleep Migraine without aura and without status migrainosus, not intractable Migraine without aura, without mention of intractable migraine without mention of status migrainosus Sleep apnea, unspecified type documented in this encounter Care Teams City Supervisor Relationship Specialty Start Date End Date George Cervantes MD [address] [place] [address] [place] [address] PCP - General Family Medicine 10/07/14 documented as of this encounter
--- OUTSIDE RECORDS SUMMARY | 2023-09-06 09:42 | External Medical Summary | Summary of Care ---
Author Name Unknown Organization [facility] Address [address] [place] [address] Phone [phone] Care Team Providers Care Oil Expeller Name Role Phone Sheryl Cervantes MD Primary Care Provide r Reason for Visit * Reason Comments Medication Refill Encounter Details Date Type Department Care Team (Late st Contact Info) Description 08/13/2023 Refill Family Medicine [address] [address] Sheryl Cervantes MD [address] [place] [address] [place] [address] Fibromyalgia; Chronic midline thoracic back pain; Chronic midline low back pain without sciatica Allergies Active Allergy Reactions Criticality Noted Date Comments Morphine And Related 02/19/2001 swelling Penicillins 02/19/2001 Rash as an adult 20+ yrs ago Sulfa Antibiotics 02/19/2001 Rash, 2010 documented as of this encounter (statuses as of 08/13/2023) Medications Medication Sig Dispensed Refills Start Date [...] month thereafter 2 mL 5 06/12/2023 Active Doxycycline Hyclate 100 MG Oral CapsuleIndications: Sebaceous cyst Take 1 Capsule by mouth in the morning and 1 Capsule before bedtime. Do all this for 10 days. Until gone.. 20 Capsule 0 08/08/2023 4 Active Pregabalin 50 MG Oral Capsule (Lyrica)Indications :Fibromyalgia TAKE ONE CAPSULE BY MOUTH EVERY MORNING AND ONE CAPSULE BEFORE BEDTIME 180 Capsule 1 08/11/2023 4 Active DULoxetine HCl 60 MG Oral Capsule Delayed Release Particles (Cymbalta)Indicatio ns:Fibromyalgia,Chr onic midline thoracic back pain,Chronic midline low back pain without sciatica TAKE ONE CAPSULE BY MOUTH EVERY MORNING 90 Capsule 3 08/13/2023 5 Active DULoxetine HCl 60 MG Oral Capsule Delayed Release Particles (Cymbalta)Indicatio ns:Fibromyalgia,Chr onic midline thoracic back pain,Chronic midline low back pain without sciatica TAKE ONE CAPSULE BY MOUTH EVERY MORNING 90 Capsule 3 08/15/2022 4 Discontinu ed(Refill) documented as of this encounter (statuses as of 08/13/2023) Active Problems Problem Noted Date Diagnosed Date [...] as of this encounter (statuses as of 08/13/2023) Resolved Problems Problem Noted Date Diagnosed Date Resolved Date Chronic kidney disease, stage 3a 06/27/2022 02/07/2023 Overview: Per CKD protocol Abnormal PFT 12/25/2017 03/29/2019 Pulmonary hypertension 10/09/201401/10 Enthesopathy of hip 06/27/2003 03/07/20 17 ABNORMAL FINDINGS-BREAST 10/30/2002 Excessive menstruation 06/21/200204/29 Diarrhea 06/07/2016 documented as of this encounter (statuses as of 08/13/2023) Immunizations Name Administration Dates Next Due COVID-19 mRNA, LNP-s, No Pre serve, 2-Dose Series (Pfizer) 03/08/2021,07/25/2020,07/04/2020 H1N1 2009 Influenza, IM 05/15/2009 Pneumococcal [...] encounter Miscellaneous Notes * Telephone Encounter - Madison Herrera [facility] - 08/13/2023 6:47 PM EDT Signed Prescriptions: Disp Refills DULoxetine HCl 60 MG Oral Capsule Delayed *90 Cap*3 Sig: TAKE ONE CAPSULE BY MOUTH EVERY MORNINGAuthorizing Provider: SHERYL CERVANTES User: MADISON CALI documented in this encounter Plan of Treatment Upcoming Encounters Date Type Department Care Team (Late st Contact Info) Description 08/25/2023 2:00 PM EDT PulmDiagnostic Sleep Lab Shruthi Burr [address] [place] [address] [place], Sleep Med Home Study [facility] [address] [place] [address] 09/05/2023 2:00 PM EDT Office Visit Cardiology [address] [place] [address] Surjit Zamarripa PA-C [address] [place] [address] 09/14/2023 1:00 PM EDT Office Visit Neurology [facility] [address] [place] [address] Clarisa Adair MD 200 [facility] [place] [address] 09/27/2023 1:20 PM EDT Office Visit Sleep Disorders Ctr [facility] [address] [place] [phone] Lashay Lundberg DO [address] [place] [address] 01/23/2024 1:40 PM EDT Office Visit Family Medicine [address] [place] [phone] Sheryl Cervantes MD [address] [place] [address] [place] [address] 02/19/2024 1:30 PM EDT Imaging Radiology [address] [place] [address] 03/25/2024 2:30 PM EST Nurse Only Ancillary [address] [place] [address] [place], Nurse Annual [address] [place] [address] Scheduled Procedures Name Priority Associated Diagnoses Date/Ti me COLONOSCOPY FLEXIBLE PROXIMA L DIAGNOSTIC Recall History of colonic polyps Health Maintenance Due Date Last Done Comments DTaP,Tdap,and Td Vaccines (2 - Td or Tdap) 07/14/2018 07/14/2008, 11/19/1991 COVID-19 Vaccine ( - season) 2023 03/08/2021, 07/25/2020, 07/04/2020 Albumin/Creatinine Ratio 05/30/2023 05/30/2022 GFR 08/08/2023 02/07/2023, 12/13, 05/30/2022, Additional history exists DXA Scan 08/25/2023 08/24/2021, 08/24/2021 CKD HGB USE SMARTSET 28349 12/30/202312/29, 05/30/2022, 05/30/2022, Additional history exists CKD PHOS USE SMARTSET 41366 02/08/2024 02/07/2023 Mammogram 02/14/2024 02/13/2023, 100 06/2022, 01/11/2022, Additional history exists Depression Screening 03/22/2024 [...] D LEVEL ONCE IN A LIFETIME-USE SMARTSET# [id number] Completed 05/30/2022 Cologuard Discontinued 07/26/2022, 0 10/2022, 07/18/2022 Colonoscopy Discontinued 12/19/2022, 0 11/2022, 10/02/2012, Additional history exists Colorectal Cancer [...] as of this encounter Visit Diagnoses Diagnosis Fibromyalgia Mylagia and myositis, unspecified Chronic midline thoracic back pain Chronic midline low back pain without sciatica documented in this encounter Care Teams Oil Expeller Relationship Specialty Start Date End Date Sheryl Cervantes MD [address] [place] [address] [place] [phone] PCP - General Family Medicine 10/07/14 documented as of this encounter
--- OUTSIDE RECORDS SUMMARY | 2023-09-06 09:42 | External Medical Summary | Summary of Care ---
Author Name Unknown Organization [facility] Address [address] [place] [address] Phone [phone] Care Team Providers Care Institute Scientist Name Role Phone Sheryl Cervantes MD Primary Care Provide r Reason for Visit * Reason Comments Medication Refill Encounter Details Date Type Department Care Team (Late st Contact Info) Description 08/21/2023 Refill Family Medicine [address] [address] Sheryl Cervantes MD [address] [place], [place] [address] [address] Allergies Active Allergy Reactions Criticality Noted Date Comments Morphine And Related 02/19/2001 swelling Penicillins 02/19/2001 Rash as an adult 20+ yrs ago Sulfa Antibiotics 02/19/2001 Rash, 2010 documented as of this encounter (statuses as of 08/22/2023) Medications Medication Sig Dispensed Refills Start Date [...] 06/12/2023 Active Pregabalin 50 MG Oral Capsule (Lyrica)Indications [...] HOURS 10 Tablet 3 08/22/2023 5 Active Almotriptan Malate 12.5 MG Oral Tablet TAKE ONE TABLET BY MOUTH AT ONSET OF MIGRAINE. MAY REPEAT IN 2 HOURS. MAX DOSE 2 TABLETS IN 24 HOURS 10 Tablet 3 05/23/2023 4 Discontinu ed(Refill) documented as of this encounter (statuses as of 08/22/2023) Active Problems Problem Noted Date Diagnosed Date [...] as of this encounter (statuses as of 08/22/2023) Resolved Problems Problem Noted Date Diagnosed Date Resolved Date Chronic kidney disease, stage 3a 06/27/2022 02/07/2023 Overview: Per CKD protocol Abnormal PFT 12/25/2017 03/29/2019 Pulmonary hypertension 10/09/201401/10 Enthesopathy of hip 06/27/2003 03/07/20 17 ABNORMAL FINDINGS-BREAST 10/30/2002 Excessive menstruation 06/21/200204/29 Diarrhea 06/07/2016 documented as of this encounter (statuses as of 08/22/2023) Immunizations Name Administration Dates Next Due COVID-19 mRNA, LNP-s, No Pre serve, 2-Dose Series ([employer]) 03/08/2021,07/25/2020,07/04/2020 H1N1 2009 Influenza, IM 05/15/2009 Pneumococcal [...] encounter Miscellaneous Notes * Telephone Encounter - Storm Romano, [facility] - 08/22/2023 9:32 AM EDTSigned Prescriptions: Disp Refills Almotriptan Malate 12.5 MG Oral Tablet 10 Tab*3 Sig: TAKE ONE TABLET BY MOUTH AT ONSET OF MIGRAINE. MAY REPEAT IN 2 HOURS. MAX DOSE 2 TABLETS IN 24 HOURSAuthorizingProvider: SHERYL CERVANTESOrdernhan User: STORM ROMANO documented in this encounter Plan of Treatment Upcoming Encounters Date Type Department Care Team (Late st Contact Info) Description 08/25/2023 2:00 PM EDT PulmDiagnostic Sleep Lab Shruthi Burr [address] [place] [phone] [facility] Shruthi [address] [place] [address] 09/05/2023 2:00 PM EDT Office Visit Cardiology [address] [place] [address] Surjit Zamarripa PA-C [address] [address] 09/14/2023 1:00 PM EDT Office Visit Neurology [facility] [place] [facility] [place] [address] Clarisa Adair MD 200 [facility] [place] [address] 09/27/2023 1:20 PM EDT Office Visit [facility] Disorders Ctr [facility] Devin Childress [address] [place] [phone] Lashay Lundberg DO [address] [place] [address] 01/23/2024 1:40 PM EDT Office Visit Family Medicine [address] [place] [phone] Sheryl Cervantes MD [address] [place] [address] [place] [address] 02/19/2024 1:30 PM EDT Imaging Radiology [address] [place] [address] 03/25/2024 2:30 PM EST Nurse Only Ancillary [address] [place] [address] [place], Nurse Annual [address] [place] [address] Scheduled Procedures Name Priority Associated Diagnoses Date/Ti [...] 08/25/2023 08/24/2021, 08/24/2021 CKD HGB USE SMARTSET 49765 12/30/202312/29, 05/30/2022, 05/30/2022, Additional history exists CKD PHOS USE SMARTSET 77190 02/08/2024 02/07/2023 Mammogram 02/14/2024 02/13/2023, 1006/2022, 01/11/2022, [...] D LEVEL ONCE IN A LIFETIME-USE SMARTSET# [id number] Completed 05/30/2022 Cologuard Discontinued 07/26/2022, 0 10/2022, [...] filedocumented as of this encounter Care Teams Institute Scientist Relationship Specialty Start Date End Date Sheryl Cervantes MD [address] [place] [address] [place] [address] PCP - General Family Medicine 10/07/14 documented as of this encounter
--- OUTSIDE RECORDS SUMMARY | 2023-09-06 09:42 | External Medical Summary | Summary of Care ---
Author Name Unknown Organization [facility] Address [address] [place] [address] Phone [phone] Care Team Providers Care Mgmt Consultant Name Role Phone George Cervantes MD Primary Care Provide r Reason for Visit * Reason Comments Acute Encounter Details Date Type Department Care Team (Late st Contact Info) Description 08/08/2023 11:00 AM EDT Office Visit Family Medicine [address] [place] [address] Janette Azul PA-C [address] [place] [address] [place] [address] Sebaceous cyst* Allergies Active Allergy Reactions Criticality Noted Date Comments Morphine And Related 02/19/2001 swelling Penicillins 02/19/2001 Rash as an adult 20+ yrs ago Sulfa Antibiotics 02/19/2001 Rash, 2010 documented as of this encounter (statuses as of 08/08/2023) Medications Medication Sig Dispensed Refills Start Date End Date Status ASPIRIN 81 MG OR TBECIndications:in am Take by mouth. 30 0 06/11/2004 Active Diclofenac Sodium 1 % gelIndications:Gener alized osteoarthritis place 2gm topically on the skin 2 times a day to the affected area as directed 100 g 5 12/03/2019 Active DULoxetine HCl 60 MG Oral Capsule Delayed Release Particles (Cymbalta)Indication s:Fibromyalgia,Chron ic midline thoracic back pain,Chronic midline low back pain without sciatica TAKE ONE CAPSULE BY MOUTH EVERY MORNING 90 Capsule 3 08/15/2022 4 Active Atorvastatin Calcium 20 MG Oral Tablet (Lipitor)Indications :Hyperlipidemia with target LDL less than 100 Take by mouth 1 Tablet in the morning. 100 Tablet 3 11/21/2022 Active Pregabalin 50 MG Oral Capsule (Lyrica)Indications: [...] 06/12/2023 Active Doxycycline Hyclate 100 MG Oral CapsuleIndications:S ebaceous cyst Take 1 Capsule by mouth in the morning and 1 Capsule before bedtime. Do all this for 10 days. Until gone.. 20 Capsule 0 08/08/2023 4 Active documented as of this encounter (statuses as of 08/08/2023) Active Problems Problem Noted Date Diagnosed Date [...] as of this encounter (statuses as of 08/08/2023) Resolved Problems Problem Noted Date Diagnosed Date Resolved Date Chronic kidney disease, stage 3a 06/27/2022 02/07/2023 Overview: Per CKD protocol Abnormal PFT 12/25/2017 03/29/2019 Pulmonary hypertension 10/09/201401/10 Enthesopathy of hip 06/27/2003 03/07/20 17 ABNORMAL FINDINGS-BREAST 10/30/2002 Excessive menstruation 06/21/200204/29 Diarrhea 06/07/2016 documented as of this encounter (statuses as of 08/08/2023) Immunizations Name Administration Dates Next Due COVID-19 mRNA, LNP-s, No Pre serve, 2-Dose Series ([employer]) 03/08/2021,07/25/2020,07/04/2020 H1N1 2009 Influenza, IM 05/15/2009 Pneumococcal [...] Sign Reading Time Taken Comments Blood Pressure 120/72 08/08/2023 10:51 AM EDT Pulse 56 08/08/2023 10:51 AM EDT Temperature 36.4 C (97.6 F) 08/08/2023 10:51 AM E DT Respiratory Rate 16 08/08/2023 10:51 AM EDT Oxygen Saturation - - Inhaled Oxygen Concentration - - Weight 76.2 kg (168 lb) 08/08/2023 10:51 AM EDT Height - - Body Mass Index 30.48 06/21/2023 1:27 PM EST documented in this encounter Progress Notes * Janette Azul PA-C - 08/08/2023 10:55 AM EDT Nursing Notes: Yahaira Campos RN 08/08/23 1055 Sign at exiting of workspace Acute visit for lump under right arm, started as a black head 4 mo ago, getting larger. Tender sometimes, has never opened up Pt here today with lump at right axilla. It started about 4 months ago. It was very small and got larger. Pt denies redness. She has mild pain. No drainage. No fever or chills. Review of patient's allergies indicates: Allergen Reactions Morphine And Related swelling Penicillins Rash as an adult 20+ yrs ago Sulfa Antibiotics Rash, 2010 Current Outpatient Medications Medication Sig Dispense Refill ASPIRIN 81 MG OR TBEC Take by mouth. 30 0 Diclofenac Sodium 1 % gel place 2gm topically on the skin 2 times a day to the affected area as directed 100 g 5 DULoxetine HCl 60 MG Oral Capsule Delayed Release Particles (Cymbalta) TAKE ONE CAPSULE BY MOUTH EVERY MORNING 90 Capsule 3 Atorvastatin Calcium 20 MG Oral Tablet (Lipitor) Take by mouth 1 Tablet in the morning. 100 Tablet 3 Pregabalin 50 MG Oral Capsule (Lyrica) TAKE ONE CAPSULE BY MOUTH EVERY MORNING AND ONE CAPSULE BEFORE BEDTIME 180 Capsule 1 Alendronate Sodium 70 MG Oral Tablet (Fosamax) TAKE 1 TABLET BY MOUTH ONCE A WEEK AT LEAST 30 MINUTES BEFORE FIRST FOOD/BEVERAGE DO NOT LIE DOWN FOR 30 MINUTES AFTER TAKING 15 Tablet 3 traZODone HCl 150 MG Oral Tablet (Desyrel) TAKE ONE TABLET BY MOUTH AT BEDTIME 90 Tablet 3 DULoxetine HCl 30 MG Oral Capsule Delayed Release Particles (Cymbalta) TAKE ONE CAPSULE BY MOUTH ONCE DAILY. DO NOT CRUSH CUT OR CHEW. TAKE WITH 60MG DOSE FOR A TOTAL OF 90MG DAILY 100 Capsule 1 Omeprazole 40 MG Oral Capsule Delayed Release (PriLOSEC) TAKE ONE CAPSULE BY MOUTH TWO TIMES A DAY 180 Capsule 1 Almotriptan Malate 12.5 MG Oral Tablet TAKE ONE TABLET BY MOUTH AT ONSET OF MIGRAINE. MAY REPEAT IN2 HOURS. MAX DOSE 2 TABLETS IN 24 HOURS 10 Tablet 3 Metoprolol Succinate ER 50 MG Oral Tablet Extended Release 24 Hour (toPROL XL) TAKE ONE TABLET BY MOUTH EVERY MORNING AND TAKE ONE TABLET BY MOUTH EVERY DAY BEFORE BEDTIME 180 Tablet 3 Galcanezumab-gnlm 120 MG/ML Subcutaneous Solution Auto-injector (Emgality) Inject 2 ml (2 pens) under the skin for the first dose then 1 ml (1 pen) under the skin once a month thereafter 2 mL 5 No current facility-administered medications for this visit. Past Medical History: Diagnosis Date Diarrhea since cholecystectomy Fibromyalgia 10/13/2011 Generalized osteoarthritis Idiopathic scoliosis Irritable bowel syndrome with diarrhea 09/12/2017 Migraine without aura Mild aortic regurgitation 05/31/2016 Mild persistent asthma without complication 07/10/2018 Moderate mitral regurgitation 05/31/2016 Persistent insomnia 06/21/2002 Reflux esophagitis Renal artery aneurysm (HCC) 10/30/2017 Social History Socioeconomic History Marital status: Spouse name: Not on file Number of children: 2 Years of education: Not on file Highest education level: Not on file Occupational History Occupation: manager nursing Employer: [employer] Tobacco Use Smoking status: Never Smokeless tobacco: Never Vaping Use Vaping Use: Never used Substance and Sexual Activity Alcohol use: Not Currently Comment: rarely Drug use: No Sexual activity: Not Currently Partners: Male control/protection: Surgical Other Topics Concern Service No Blood Transfusions No Caffeine Concern No Occupational Exposure No Hobby Hazards No Sleep Concern No Stress Concern Yes Comment: work, nuses aid Weight Concern No Special Diet No Back Care No Exercise Yes Bike Helmet No Comment: does not ride a bike Seat Belt Yes Self-Exams Yes Social History Narrative for 49 yrs as of 03/22/2023 Social Determinants of Health Financial Resource Strain: Not on file Food Insecurity: No Food Insecurity (03/22/2023) Hunger Vital Sign Worried About Running Out of Food in the Last Year: Never true Ran Out of Food in the Last Year: Never true Transportation Needs: Not on file Physical Activity: Not on file Stress: Not on file Social Connections: Not on file Intimate Partner Violence: Not on file Housing Stability: Not on file O:Blood pressure 120/72, pulse 56, temperature 36.4 C (97.6 F), resp. rate 16, weight 76.2 kg (168 lb). GENERAL: alert, healthy, and no distress SKIN: right axilla - small cyst under right axilla. No drainage. No tenderness. Mild erythema A:Sebaceous cyst (Primary) - Doxycycline Hyclate 100 MG Oral Capsule; Take 1 Capsule by mouth in the morning and 1 Capsule before bedtime. Do all this for 10 days. Until gone.. Start above med. Warm, moist compress. Any questions/problems, please call. If anything changes, worsens, develops new sx, please call BREANNA. Follow Up: Return if symptoms worsen or fail to improve. Janette Azul PA-C documented in this encounter Nursing Notes * Yahaira Campos RN - 08/08/2023 10:51 AM EDT Acute visit for lump under right arm, started as a black head 4 mo ago, getting larger. Tender sometimes, has never opened up documented in this encounter Plan of Treatment Upcoming Encounters Date Type Department Care Team (Late st Contact Info) Description 08/25/2023 2:00 PM EDT PulmDiagnostic Sleep Lab Shruthi Burr [address] [place] [address] [facility] Shruthi [address] [place] [address] 09/05/2023 2:00 PM EDT Office Visit Cardiology [address] [place] [address] Surjit Zamarripa PA-C [address] [place] [address] 09/14/2023 1:00 PM EDT Office Visit Neurology [facility] [address] [place] [address] Clarisa Adair MD [address] [place] [address] 09/27/2023 1:20 PM EDT Office Visit Sleep Disorders Ctr [facility] [address] [place] [phone] Lashay Lundberg, [address] [place] [address] 01/23/2024 1:40 PM EDT Office Visit Family Medicine [address] [place] [phone] George Cervantes MD [address] [place] [address] [place] [address] 02/19/2024 1:30 PM EDT Imaging Radiology [address] [place] [address] 03/25/2024 2:30 PM EST Nurse Only Ancillary [address] [place] [address] [place], Nurse Annual [address] [place] [address] Scheduled Procedures Name Priority Associated Diagnoses Date/Ti [...] 08/25/2023 08/24/2021, 08/24/2021 CKD HGB USE SMARTSET 00038 12/30/202312/29, 05/30/2022, 05/30/2022, Additional history exists CKD PHOS USE SMARTSET 86753 02/08/2024 02/07/2023 Mammogram 02/14/2024 02/13/2023, 100 06/2022, [...] D LEVEL ONCE IN A LIFETIME-USE SMARTSET# 92235 Completed 05/30/2022 Cologuard Discontinued 07/26/2022, 030 10/2022, [...] as of this encounter Visit Diagnoses Diagnosis Sebaceous cyst- Primary documented in this encounter Care Teams Mgmt Consultant Relationship Specialty Start Date End Date George Cervantes MD [address] [place] [address] [place] [phone] PCP - General Family Medicine 10/07/14 documented as of this encounter
--- OUTSIDE RECORDS SUMMARY | 2023-09-06 09:42 | External Medical Summary | Summary of Care ---
Author Name Unknown Organization [facility] Address [address] [place] [address] Phone [phone] Care Team Providers Care Family Preservation Officer Name Role Phone Sheryl Cervantes MD Primary Care Provide r Reason for Visit * Reason Comments Medication Refill Encounter Details Date Type Department Care Team (Late st Contact Info) Description 08/11/2023 Refill Family Medicine [address] [phone] Sheryl Cervantes MD [address] [place] [address] [place] [id number] Fibromyalgia; Hypertensive kidney disease with stage 3a chronic kidney disease (HCC) Allergies Active Allergy Reactions Criticality Noted Date Comments Morphine And Related 02/19/2001 swelling Penicillins 02/19/2001 Rash as an adult 20+ yrs ago Sulfa Antibiotics 02/19/2001 Rash, 2010 documented as of this encounter (statuses as of 08/11/2023) Medications Medication Sig Dispensed Refills Start Date [...] BEDTIME 180 Capsule 1 08/11/2023 4 Active Pregabalin 50 MG Oral Capsule (Lyrica)Indications :Fibromyalgia TAKE ONE CAPSULE BY MOUTH EVERY MORNING AND ONE CAPSULE BEFORE BEDTIME 180 Capsule 1 02/14/2023 4 Discontinu ed(Refill) documented as of this encounter (statuses as of 08/11/2023) Active Problems Problem Noted Date Diagnosed Date [...] as of this encounter (statuses as of 08/11/2023) Resolved Problems Problem Noted Date Diagnosed Date Resolved Date Chronic kidney disease, stage 3a 06/27/2022 02/07/2023 Overview: Per CKD protocol Abnormal PFT 12/25/2017 03/29/2019 Pulmonary hypertension 10/09/201401/10 Enthesopathy of hip 06/27/2003 03/07/20 17 ABNORMAL FINDINGS-BREAST 10/30/2002 Excessive menstruation 06/21/200204/29 Diarrhea 06/07/2016 documented as of this encounter (statuses as of 08/11/2023) Immunizations Name Administration Dates Next Due COVID-19 [...] encounter Miscellaneous Notes * Telephone Encounter - Sheryl Cervantes MD - 08/11/2023 4:04 PM EDT Signed Prescriptions: Disp Refills Pregabalin 50 MG Oral Capsule (Lyrica) 180 Ca*1 Sig: TAKE ONE CAPSULE BY MOUTH EVERY MORNING AND ONE CAPSULE BEFORE BEDTIME Authorizing Provider: SHERYL CERVANTES * Telephone Encounter - Sophie Bone CPhT - 08/11/2023 12:46 PM EDT pharmacy calling to check on status of pregabalin. Caller can be reached at [phone]. Thank you, Sophie Bone CphT [facility]) (formerly Telepharmacy) 08/11/2023,12:46 PM * Telephone Encounter - Yani Mueller [facility] - 08/11/2023 12:32 PM EDT Pending Prescriptions: Disp Refills Pregabalin 50 MG Oral Capsule (Lyrica) 180 Ca*1 Sig: TAKE ONE CAPSULE BY MOUTH EVERY MORNING AND ONE CAPSULE BEFORE BEDTIME * Telephone Encounter - Yani Mueller RPh - 08/11/2023 12:28 PM EDT I have reviewed the patients controlled substance dispensing history in the Prescription Drug Monitoring Program in compliance with the [facility] regulations before prescribing a controlled substance. PDMP checked on 08/11/2023. Pending Prescriptions: Disp Refills Pregabalin 50 MG Oral Capsule (Lyrica) 180 Ca*1 Sig: TAKE ONE CAPSULE BY MOUTH EVERY MORNING AND ONE CAPSULE BEFORE BEDTIME Last Visit: 08/08/2023 (in office), Visit date not found (telemedicine) Next Visit: 01/23/2024 Date medication was last filled: 05/17 Date medication is due for refill: 08/15 Pharmacy: [facility] Is this request for a controlled substance? Yes and Urine Drug Screen Not completed Toxicology results: No results found. However, due to the size of the patient record, not all encounters were searched.Please check Results Review for a complete set of results. Please approve if appropriate. Thanks, Yani Mueller, PharmD Clinical Pharmacist [facility] ([facility]) (formerly Telepharmacy) [phone] 08/11/2023,12:32 PM documented in this encounter Plan of Treatment Upcoming Encounters Date Type Department Care Team (Late st Contact Info) Description 08/25/2023 2:00 PM EDT PulmDiagnostic Sleep [facility] Shruthi Burr [address] [place] [address] [place], Sleep Med Home Study Shruthi [address] [place] [address] 09/05/2023 2:00 PM EDT Office Visit Cardiology [address] [place] [address] Surjit Zamarripa PA-C [address] [place] [address] 09/14/2023 1:00 PM EDT Office Visit Neurology [facility] [place] [place] [address] Clarisa Adair MD [address] [facility] [place] [address] 09/27/2023 1:20 PM EDT [facility] [address] [place] [phone] Lashay Lundberg DO [address] [place] [address] 01/23/2024 1:40 PM EDT Office Visit Family Medicine [address] [place] [phone] Sheryl Cervantes MD [address] [place] [address] [place] [address] 02/19/2024 1:30 PM EDT Imaging Radiology [address] [place] [address] 03/25/2024 2:30 PM EST Nurse Only Ancillary [address] [place] [address] [place], Nurse Annual [address] [place] [address] Scheduled Orders Name Type Priority Associated Diagnoses Orde r Schedule ALBUMIN / CREATININE RATIO, URINE Lab Routine Hypertensive kidney disease with stage 3a chronic kidney disease (HCC) Expected: 08/11/2023, Expires: 08/10/2024 RENAL FUNCTION PANEL Lab Routine Hypertensive kidney disease with stage 3a chronic kidney disease (HCC) Expected: 08/11/2023 (Approximate), Expires: 08/10/2024 Scheduled Procedures Name Priority Associated Diagnoses Date/Ti [...] 08/25/2023 08/24/2021, 08/24/2021 CKD HGB USE SMARTSET 39617 12/30/202312/29, 05/30/2022, 05/30/2022, Additional history exists CKD PHOS USE SMARTSET 68971 02/08/2024 02/07/2023 Mammogram 02/14/2024 02/13/2023, 1006/2022, 01/11/2022, Additional history exists Depression Screening 03/22/2024 [...] D LEVEL ONCE IN A LIFETIME-USE SMARTSET# 61827 Completed 05/30/2022 Cologuard Discontinued 07/26/2022, 030 10/2022, 07/18/2022 Colonoscopy Discontinued 12/19/2022, 11/2022, 10/02/2012, [...] Diagnoses Diagnosis Fibromyalgia Mylagia and myositis, unspecified Hypertensive kidney disease with stage 3a chronic kidney disease (HCC) documented in this encounter Care Teams Family Preservation Officer Relationship Specialty Start Date End Date Sheryl Cervantes MD [address] [place] [address] [place] [address] PCP - General Family Medicine 10/07/14 documented as of this encounter
--- OUTSIDE RECORDS SUMMARY | 2023-09-06 09:43 | External Medical Summary | Summary of Care ---
Author Name Unknown Organization [facility] Address [address] [place] [address] Phone [phone] Care Team Providers Care Spinner Hand Name Role Phone Georeg Cervantes MD Primary Care Provide r Reason for Visit * Reason Comments Medication Refill Encounter Details Date Type Department Care Team (Late st Contact Info) Description 05/24/2023 Refill Cardiology, [facility] [address] [facility] [place] [address] Surjit Zamarripa PA-C [address] [place] [address] Ventricular ectopic beat; Palpitations Allergies Active Allergy Reactions Criticality Noted Date Comments Morphine And Related 02/19/2001 swelling Penicillins 02/19/2001 Rash as an adult 20+ yrs ago Sulfa Antibiotics 02/19/2001 Rash, 2010 documented as of this encounter (statuses as of 05/24/2023) Medications Medication Sig Dispensed Refills Start Date [...] 11/21/2022 Active Pregabalin 50 MG Oral Capsule (Lyrica)Indications [...] BEDTIME 90 Tablet 3 03/28/2023 4 Active Nurtec 75 MG Oral Tablet Disintegrating (Rimegepant Sulfate) 1 tab every other day for migraine prevention 15 Tablet 5 04/03/2023 Active DULoxetine HCl 30 MG Oral Capsule [...] BEFORE BEDTIME 180 Tablet 3 05/24/2023 Active Metoprolol Succinate ER 50 MG Oral Tablet Extended Release 24 Hour (toPROL XL)Indications:Vent ricular ectopic beat,Palpitations TAKE ONE TABLET BY MOUTH EVERY MORNING AND TAKE ONE TABLET BY MOUTH EVERY DAY BEFORE BEDTIME 180 Tablet 3 05/12/2022 4 Discontinu ed(Refill) documented as of this encounter (statuses as of 05/24/2023) Active Problems Problem Noted Date Diagnosed Date [...] as of this encounter (statuses as of 05/24/2023) Resolved Problems Problem Noted Date Diagnosed Date Resolved Date Chronic kidney disease, stage 3a 06/27/2022 02/07/2023 Overview: Per CKD protocol Abnormal PFT 12/25/2017 03/29/2019 Pulmonary hypertension 10/09/201401/10 Enthesopathy of hip 06/27/2003 03/07/20 17 ABNORMAL FINDINGS-BREAST 10/30/2002 Excessive menstruation 06/21/200204/29 Diarrhea 06/07/2016 documented as of this encounter (statuses as of 05/24/2023) Immunizations Name Administration Dates Next Due COVID-19 mRNA, LNP-s, No Pre serve, 2-Dose Series ([employer]) 03/08/2021,07/25/2020,07/04/2020 H1N1 2009 Influenza, IM 05/15/2009 Pneumococcal [...] e alcohol) rarely PHQ-2 Answer Date Recorded PHQ-2 Score 0 12/03/2019 Hunger Vital Sign Answer Date Recorded Within the past 12 months, y ou worried that your food would run out before you got the money to buy more. Never true 12/01/19 21 Within the past 12 months, t he food you bought just didn't last and you didn't have money to get more. Never true 11/30/2020 Sex and Gender Information Value Date Recorded Sex Assigned at Female 03/22/2023 3:10 PM EST Gender Identity Female 03/22/2023 3:10 PM EST Sexual Orientation Straight 03/22/2023 3: 10 PM EST Job Start Date Occupation Industry Not on file Not on file Not on file documented as of this encounter Miscellaneous Notes * Telephone Encounter - Joanna Mcgraw CRNP - 05/24/2023 1:49 PM EST Signed Prescriptions: Disp Refills Metoprolol Succinate ER 50 MG Oral Tablet *180 Ta*3 Sig: TAKE ONE TABLET BY MOUTH EVERY MORNING AND TAKE ONE TABLET BY MOUTH EVERY DAY BEFORE BEDTIME Authorizing Provider: JOANNA MCGRAW * Telephone Encounter - Mendez Matos [facility] - 05/24/2023 1:28 PM EST Pending Prescriptions: Disp Refills Metoprolol Succinate ER 50 MG Oral Tablet *180 Ta*3 Sig: TAKE ONE TABLET BY MOUTH EVERY MORNING AND TAKE ONE TABLET BY MOUTH EVERY DAY BEFORE BEDTIME * Telephone Encounter - Mendez Matos [facility] - 05/24/2023 1:27 PM EST Pending Prescriptions: Disp Refills Metoprolol Succinate ER 50 MG Oral Tablet *180 Ta*3 Sig: TAKE ONE TABLET BY MOUTH EVERY MORNING AND TAKE ONE TABLET BY MOUTH EVERY DAY BEFORE BEDTIME 12/19/2014 (in office), Visit date not found (telemedicine) Visit date not found If no future appointments scheduled, and last appointment is greater than a year ago, please schedule patient for a follow-up appointment Last date the medication was ordered: 05/12/22 Pharmacy: [facility] Is this request for a controlled substance?No Urine Drug Screen:No results found. However, due to the size of the patient record, not all encounters were searched. Please check Results Review for a complete set of results. Patient Phone Numbers Labs: Lab Results Component Value Date/Time CREAT 1.0 02/07/2023 09:40 AM CREAT 0.9 11/28/2019 02:06 PM POTASSIUM 4.3 02/07/2023 09:40 AM POTASSIUM 3.6 11/28/2019 02:06 PM TSH 1.03 12/29/2022 11:31 AM TSH 1.18 11/28/2019 02:06 PM LDLCALC 40 07/30/2020 08:09 AM LDLCALC 50 01/29/2019 10:00 AM LDLCALC 98. 07/12/1996 09:46 AM LDLDIRECT 62 12/29/2022 11:31 AM LDLDIRECT NOT APPLICABLE 01/29/2019 10:00 AM LDLDIRECT 106 03/28/2017 03:24 PM ALT 26 12/29/2022 11:31 AM ALT 25 01/29/2019 10:00 AM HGBA1C 5.5 02/07/2023 09:40 AM documented in this encounter Plan of Treatment Upcoming Encounters Date Type Department Care Team (Late st Contact Info) Description 06/12/2023 1:00 PM EST Office Visit Neurology [facility] [address] [facility] [place] [address] Clarisa Adair MD [address] [place] [address] 06/27/2023 1:00 PM EST Office Visit Pharmacy, [address] [place] [address] [place] [address] 09/05/2023 2:00 PM EDT Office Visit Cardiology [address] [place] [address] Surjit Zamarripa PA-C [address] [place] [address] 01/23/2024 1:40 PM EDT Office Visit Family Medicine [address] [place] [phone] George Cervantes MD [address] [place] [address] [place] [address] 02/19/2024 1:30 PM EDT Imaging Radiology [address] [place] [address] 03/25/2024 2:30 PM EST Nurse Only Ancillary [address] [place] [address] [place], Nurse Annual Wellness [address] [place] [address] [place] [address] Scheduled Procedures Name Priority Associated Diagnoses Date/Ti me COLONOSCOPY FLEXIBLE PROXIMA L DIAGNOSTIC Recall History of colonic polyps Health Maintenance Due Date Last Done Comments DTaP,Tdap,and Td Vaccines (2 - Td or Tdap) 07/14/2018 07/14/2008, 11/19/1991 COVID-19 Vaccine (4 - 2022- season) 2023 03/08/2021, 07/25/2020, 07/04/2020 Albumin/Creatinine Ratio 05/30/2023 05/30/2022 GFR 08/08/2023 02/07/2023, 12/13, 05/30/2022, Additional history exists DXA Scan 08/25/2023 08/24/2021 CKD HGB USE SMARTSET 23146 12/30/202312/29, 05/30/2022, 05/30/2022, Additional history exists CKD PHOS USE SMARTSET 28711 02/08/2024 02/07/2023 Mammogram 02/14/2024 02/13/2023, 12/15, 01/06/2021, Additional history exists Depression Screening 03/22/2024 03/22/2023 [...] D LEVEL ONCE IN A LIFETIME-USE SMARTSET# 12048 Completed 05/30/2022 Cologuard Discontinued 07/26/2022, 0 10/2022, [...] as of this encounter Visit Diagnoses Diagnosis Ventricular ectopic beat Other premature beats Palpitations documented in this encounter Care Teams Spinner Hand Relationship Specialty Start Date End Date George Cervantes MD [address] [place] [address] [place] [address] PCP - General Family Medicine 10/07/14 documented as of this encounter
--- OUTSIDE RECORDS SUMMARY | 2023-09-06 09:43 | External Medical Summary | Summary of Care ---
Author Name Unknown Organization [facility] Address [address] [place] [address] Phone [phone] Care Team Providers Care Advisory Intern Name Role Phone Sheryl Cervantes MD Primary Care Provide r Reason for Visit * Reason Comments Medication Refill Encounter Details Date Type Department Care Team (Late st Contact Info) Description 05/13/2023 Refill Family Medicine [address] [phone] Sheryl Cervantes MD [address] [place], [place] [address] [address] Reflux esophagitis Allergies Active Allergy Reactions Criticality Noted Date Comments Morphine And Related 02/19/2001 swelling Penicillins 02/19/2001 Rash as an adult 20+ yrs ago Sulfa Antibiotics 02/19/2001 Rash, 2010 documented as of this encounter (statuses as of 05/14/2023) Medications Medication Sig Dispensed Refills Start Date [...] MORNING 90 Capsule 3 08/15/2022 4 Active Metoprolol Succinate ER 50 MG Oral Tablet Extended Release 24 Hour (toPROL XL)Indications:Vent ricular ectopic beat,Palpitations TAKE ONE TABLET BY MOUTH EVERY MORNING AND TAKE ONE TABLET BY MOUTH EVERY DAY BEFORE BEDTIME 180 Tablet 3 05/12/2022 4 Active Atorvastatin Calcium 20 MG Oral [...] AFTER TAKING 15 Tablet 3 02/17/2023 Active Almotriptan Malate 12.5 MG Oral Tablet TAKE ONE TABLET BY MOUTH AT ONSET OF MIGRAINE. MAY REPEAT IN 2 HOURS. MAX DOSE 2 TABLETS IN 24 HOURS 10 Tablet 3 03/28/2023 4 Active traZODone HCl 150 MG Oral Tablet [...] DAY 180 Capsule 1 05/14/2023 4 Active Omeprazole 40 MG Oral Capsule Delayed Release (PriLOSEC)Indicatio ns:Reflux esophagitis TAKE ONE CAPSULE BY MOUTH TWO TIMES A DAY 180 Capsule 1 10/13/2022 3 Discontinu ed(Refill) documented as of this encounter (statuses as of 05/14/2023) Active Problems Problem Noted Date Diagnosed Date [...] as of this encounter (statuses as of 05/14/2023) Resolved Problems Problem Noted Date Diagnosed Date Resolved Date Chronic kidney disease, stage 3a 06/27/2022 02/07/2023 Overview: Per CKD protocol Abnormal PFT 12/25/2017 03/29/2019 Pulmonary hypertension 10/09/201401/10 Enthesopathy of hip 06/27/2003 03/07/20 17 ABNORMAL FINDINGS-BREAST 10/30/2002 Excessive menstruation 06/21/200204/29 Diarrhea 06/07/2016 documented as of this encounter (statuses as of 05/14/2023) Immunizations Name Administration Dates Next Due COVID-19 mRNA, LNP-s, No Pre serve, 2-Dose Series ([employer]) 03/08/2021,07/25/2020,07/04/2020 H1N1 2009 Influenza, IM 05/15/2009 Pneumococcal [...] encounter Miscellaneous Notes * Telephone Encounter - Madi Vaughn, [facility] - 05/14/2023 10:00 PM EST Signed Prescriptions: Disp Refills Omeprazole 40 MG Oral Capsule Delayed Rele*180 Ca*1 Sig: TAKE ONE CAPSULE BY MOUTH TWO TIMES A DAYAuthorizing Provider: SHERYL CERVANTESOrdering User: MADI VAUGHN documented in this encounter Plan of Treatment Upcoming Encounters Date Type Department Care Team (Late st Contact Info) Description 06/12/2023 1:00 PM EST Office Visit Neurology [facility] [address] [facility] [place] [address] Clarisa Adair MD [address] [facility] [place] [address] 06/27/2023 1:00 PM EST Office Visit Pharmacy, [address] [place] [address] [place] [address] 09/05/2023 2:00 PM EDT Office Visit Cardiology [address] [place] [address] Surjit Zamarripa PA-C [address] [place] [address] 01/23/2024 1:40 PM EDT Office Visit Family Medicine [address] [place] [phone] Sheryl Cervantes MD [address] [place] [address] [place] [address] 02/19/2024 1:30 PM EDT Imaging Radiology [address] [place] [address] 03/25/2024 2:30 PM EST Nurse Only Ancillary Fernando [address] [place] [address] [place], Nurse [address] [place] [address] Scheduled Procedures Name Priority Associated Diagnoses Date/Ti [...] Scan 08/25/2023 08/24/2021 CKD HGB USE SMARTSET 89789 12/30/202312/29, 05/30/2022, 05/30/2022, Additional history exists CKD PHOS USE SMARTSET 70006 02/08/2024 02/07/2023 Mammogram 02/14/2024 02/13/2023, 08, 01/06/2021, Additional history exists Depression Screening 03/22/2024 [...] D LEVEL ONCE IN A LIFETIME-USE SMARTSET# [id number] Completed 05/30/2022 Cologuard Discontinued 07/26/2022, 10/2022, 07/18/2022 [...] as of this encounter Visit Diagnoses Diagnosis Reflux esophagitis documented in this encounter Care Teams Advisory Intern Relationship Specialty Start Date End Date Sheryl Cervantes MD [address] [place] [address] [place] [address] PCP - General Family Medicine 10/07/14 documented as of this encounter
--- OUTSIDE RECORDS SUMMARY | 2023-09-06 09:43 | External Medical Summary | Summary of Care ---
Author Name Unknown Organization [facility] Address [address] [place] [address] Phone [phone] Care Team Providers Care Exercise Equipment Specialist Name Role Phone George Cervantes MD Primary Care Provide r Reason for Visit * Reason Comments Return Neuro Encounter Details Date Type Department Care Team (Late st Contact Info) Description 06/12/2023 1:00 PM EST Office Visit Neurology [facility] [address] [facility] [place] [address] Clarisa Adair MD [address] [facility] [address] Family history of aneurysm*; Migraine without aura and without status migrainosus, not intractable Allergies Active Allergy Reactions Criticality Noted Date Comments Morphine And Related 02/19/2001 swelling Penicillins 02/19/2001 Rash as an adult 20+ yrs ago Sulfa Antibiotics 02/19/2001 Rash, 2010 documented as of this encounter (statuses as of 06/12/2023) Medications Medication Sig Dispensed Refills Start Date [...] MOUTH EVERY MORNING 90 Capsule 3 08/15/2022 09/09/19 24 Active Atorvastatin Calcium 20 MG Oral Tablet (Lipitor)Indication s:Hyperlipidemia with target LDL less than 100 Take by mouth 1 Tablet in the morning. 100 Tablet 3 11/21/2022 Active Additional Information Patient not taking.Reported on 06/12/2023 Pregabalin 50 MG Oral Capsule (Lyrica)Indications :Fibromyalgia TAKE ONE CAPSULE BY MOUTH EVERY MORNING AND ONE CAPSULE BEFORE BEDTIME 180 Capsule 1 02/14/2023 08/17/19 24 Active Alendronate Sodium 70 MG Oral Tablet (Fosamax) TAKE 1 TABLET BY MOUTH ONCE A WEEK AT LEAST 30 MINUTES BEFORE FIRST FOOD/BEVERAGE DO NOT LIE DOWN FOR 30 MINUTES AFTER TAKING 15 Tablet 3 02/17/2023 Active traZODone HCl 150 MG Oral Tablet (Desyrel)Indication s:Persistent insomnia TAKE ONE TABLET BY MOUTH AT BEDTIME 90 Tablet 3 03/28/2023 03/27/20 24 Active DULoxetine HCl 30 MG Oral Capsule Delayed Release Particles (Cymbalta)Indicatio ns:Generalized osteoarthritis,Dege neration of cervical intervertebral disc,Fibromyalgia TAKE ONE CAPSULE BY MOUTH ONCE DAILY. DO NOT CRUSH CUT OR CHEW. TAKE WITH 60MG DOSE FOR A TOTAL OF 90MG DAILY 100 Capsule 1 04/21/2023 04/20/20 24 Active Omeprazole 40 MG Oral Capsule Delayed Release (PriLOSEC)Indicatio ns:Reflux esophagitis TAKE ONE CAPSULE BY MOUTH TWO TIMES A DAY 180 Capsule 1 05/14/2023 05/13/20 24 Active Almotriptan Malate 12.5 MG Oral Tablet TAKE ONE TABLET BY MOUTH AT ONSET OF MIGRAINE. MAY REPEAT IN 2 HOURS. MAX DOSE 2 TABLETS IN 24 HOURS 10 Tablet 3 05/23/2023 05/22/19 25 Active Metoprolol Succinate ER 50 MG Oral Tablet Extended Release 24 Hour (toPROL XL)Indications:Vent ricular ectopic beat,Palpitations TAKE ONE TABLET BY MOUTH EVERY MORNING AND TAKE ONE TABLET BY MOUTH EVERY DAY BEFORE BEDTIME 180 Tablet 3 05/24/2023 Active Galcanezumab-gnlm 120 MG/ML Subcutaneous Solution Auto-injector (Emgality) Inject 2 ml under the skin for the first dose then 1 ml under the skin once a month thereafter 2 mL 5 06/12/2023 Active Nurtec 75 MG Oral Tablet Disintegrating (Rimegepant Sulfate) 1 tab every other day for migraine prevention 15 Tablet 5 04/03/2023 06/12/19 24 Discontinu ed(Formula ry/Cost) documented as of this encounter (statuses as of 06/12/2023) Active Problems Problem Noted Date Diagnosed Date [...] as of this encounter (statuses as of 06/12/2023) Resolved Problems Problem Noted Date Diagnosed Date Resolved Date Chronic kidney disease, stage 3a 06/27/2022 02/07/2023 Overview: Per CKD protocol Abnormal PFT 12/25/2017 03/29/2019 Pulmonary hypertension 10/09/201401/10 Enthesopathy of hip 06/27/2003 03/07/20 17 ABNORMAL FINDINGS-BREAST 10/30/2002 Excessive menstruation 06/21/200204/29 Diarrhea 06/07/2016 documented as of this encounter (statuses as of 06/12/2023) Immunizations Name Administration Dates Next Due COVID-19 mRNA, LNP-s, No Pre serve, 2-Dose Series ([employer]) 03/08/2021,07/25/2020,07/04/2020 H1N1 2009 Influenza, IM 05/15/2009 Pneumococcal [...] Sign Reading Time Taken Comments Blood Pressure 108/64 06/12/2023 12:48 PM EST Pulse 82 06/12/2023 12:48 PM EST Temperature 37 C (98.6 F) 06/12/2023 12:48 PM EST Respiratory Rate 18 06/12/2023 12:48 PM EST Oxygen Saturation 90% 06/12/2023 12:48 PM EST Inhaled Oxygen Concentration - - Weight 77.8 kg (171 lb 8 oz) 06/12/2023 12:48 PM EST Height - - Body Mass Index 31.12 03/22/2023 2:44 PM EST documented in this encounter Progress Notes * Clarisa Adair MD - 06/12/2023 1:09 PM EST CLINIC NOTES Neurology [facility] [place] [address] [facility] [address] Joana Ramirez : 1955 NEUROLOGY OUTPATIENT NOTE 06/12/2023 HISTORY: The patient is referred for consultation by Dr. Cervantes, who will be receiving a copy of this note. Patient comes today in follow-up of chronic migraine. I prescribed Nurtec to be taken prophylactically but it was not covered. Reviewing her record apparently her insurance will cover Emgality or Aimovig. The patient continues to have headaches specifically migraines on most days of the week. She has not had any change in her medical or surgical history Patient had an MRA of the head due to family history of intracranial aneurysms. MRA of the head wasunremarkable. I have reviewed images and reports Exam End Date Exam End Time 04/17/2023 2:05 PM MRA HEAD WO CONTRAST Order: [id number] Status: Final result Visible to patient: No (inaccessible in MyChart) Next appt: 06/27/2023 at 01:00 PM in Pharmacy ([facility]) Dx: Family history of aneurysm 0 Result Notes 1 Follow-up Encounter Details Reading Physician Reading Date Result Priority Chuck Wang MD [phone] 04/18/2023 Narrative & Impression EXAM MRA HEAD WO CONTRAST-04/17/2023 2:05 pm HISTORY 68 y/o F, f[facility] intracranial aneurysm COMPARISON MRA head 03/24/2016. TECHNIQUE 3D [id number] MR angiography of the head was performed, generating 3D maximum intensity projection images. FINDINGS The visualized internal carotid arteries are patent to the carotid terminus bilaterally with normalcourse and caliber at the level of the skull base. The major branches of the [place] including the anterior, middle, and posterior cerebral arteries are patent, without flow-limiting stenosis or large vessel occlusion. The vertebrobasilar system is within normal limits. No aneurysm or arteriovenous malformation is identified. 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 IMPRESSION IMPRESSION No intracranial aneurysm, flow-limiting stenosis, or occlusion. 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 Past Medical History: Diagnosis Date Diarrhea since cholecystectomy Fibromyalgia 10/13/2011 Generalized osteoarthritis Idiopathic scoliosis Irritable bowel syndrome with diarrhea 09/12/2017 Migraine without aura Mild aortic regurgitation 05/31/2016 Mild persistent asthma without complication 07/10/2018 Moderate mitral regurgitation 05/31/2016 Persistent insomnia 06/21/2002 Reflux esophagitis Renal artery aneurysm (HCC) 10/30/2017 Patient Active Problem List Diagnosis Code Migraine without aura and without status migrainosus, not intractable G43.009 Reflux esophagitis K21.00 GENERAL OSTEOARTHROSIS M15.9 Idiopathic scoliosis M41.20 Persistent insomnia G47.00 CERVICAL DISC DEGEN M50.30 ADVANCE DIRECTIVE INFORMATION Fibromyalgia M79.7 Mild aortic regurgitation I35.1 Moderate mitral regurgitation I34.0 Irritable bowel syndrome with diarrhea K58.0 Renal artery aneurysm (HCC) I72.[address] of the chest R93.89 Sleep disorder G47.9 Mild persistent asthma without complication J45.30 Ventricular ectopic beat I49.3 Dyslipidemia, goal LDL below 100 E78.5 Interstitial lung disease (HCC) J84.9 HTN, goal below 140/90 I10 Hypertensive kidney disease with stage 3a chronic kidney disease (HCC) I12.9, N18.31 Major depressive disorder, single episode, mild (HCC) F32.0 Age-related osteoporosis without current pathological fracture M81.0 Past Surgical History: Procedure Laterality Date COLONOSCOPY 10/18/2005 Dr. Peterson COLONOSCOPY, DIAGNOSTIC (RECTUM) 10/02/2012 COLONOSCOPY FLEXIBLE PROXIMAL DIAGNOSTIC performed by Daisy Rios DO at ENDOSCOPY [facility] COLONOSCOPY, DIAGNOSTIC (RECTUM) 12/19/2022 biopsies show hyperplastic polyps/recall 5 years/COLONOSCOPY FLEXIBLE PROXIMAL DIAGNOSTIC performedby Ifeoma Peña MD at ENDOSCOPY [facility] EGD, FLEXIBLE, DIAGNOSTIC 10/02/2012 UPPER GI ENDOSCOPY DIAGNOSTIC performed by Daisy Rios DO at ENDOSCOPY [facility] EGD, FLEXIBLE, DIAGNOSTIC 12/11/2019 gastritis/biopsies show inflammatory changes in stomach/ESOPHAGOGASTRODUODENOSCOPY (EGD), FLEXIBLE,TRANSORAL, DIAGNOSTIC performed by Daisy Rios DO at ENDOSCOPY [facility] EGD, FLEXIBLE, W/BIOPSY 01/09/2007 path-normal EGD, W/ENDOSCOPIC US 11/27/2008 LAPAROSCOPY; CHOLECYSTECTOMY 06/06/1995 MAMMOGRAM SCREENING BILATERAL Bilateral 11/09/2016 scattered fibroglandular densities category 1 normal REMOVAL OF OVARY/OVIDUCT(S) 08/06/2003 bilateral TOTAL ABD HYSTERECTOMY W/WO REMOVAL OF TUBE(S) 08/06/2003 Dr. Nguyen - fibroids US ABDOMEN COMPLETE 09/07/2021 cholecystecomy, fatty liver, nonobstruction right renal stone Social History Socioeconomic History Marital status: Spouse name: Not on file Number of children: 2 Years of education: Not on file Highest education level: Not on file Occupational History Occupation: nursing professor Employer: [employer] Tobacco Use Smoking status: Never [...] on file Housing Stability: Not on file Family History Problem Relation Age of Onset Hypertension Mother Migraines Mother Breast Cancer Grandmother (Maternal) Diabetes Grandmother (Maternal) Glaucoma Son 45 Diabetes Aunt (Unspecified) Current Outpatient Medications Medication Sig Dispense Refill DULoxetine HCl 60 MG Oral Capsule Delayed Release Particles (Cymbalta) TAKE ONE CAPSULE BY MOUTH EVERY MORNING 90 Capsule 3 Pregabalin 50 MG Oral Capsule (Lyrica) TAKE ONE CAPSULE BY MOUTH EVERY MORNING AND ONE CAPSULE BEFORE BEDTIME 180 Capsule 1 traZODone HCl 150 MG Oral Tablet (Desyrel) [...] Subcutaneous Solution Auto-injector (Emgality) Inject 2 ml under the skin for the first dose then 1 ml under the skin once a month thereafter 2 mL 5 ASPIRIN 81 MG OR TBEC Take by mouth. (Patient not taking: Reported on 06/12/2023) 30 0 Diclofenac Sodium 1 % gel place 2gm topically on the skin 2 times a day to the affected area as directed (Patient not taking: Reported on 06/12/2023) 100 g 5 Atorvastatin Calcium 20 MG Oral Tablet (Lipitor) Take by mouth 1 Tablet in the morning. (Patient not taking: Reported on 06/12/2023) 100 Tablet 3 Alendronate Sodium 70 MG Oral Tablet (Fosamax) TAKE 1 TABLET BY MOUTH ONCE A WEEK AT LEAST 30 MINUTES BEFORE FIRST FOOD/BEVERAGE DO NOT LIE DOWN FOR 30 MINUTES AFTER TAKING 15 Tablet 3 No current facility-administered medications for this visit. Review of patient's allergies indicates: Allergen Reactions Morphine And Related swelling Penicillins Rash as an adult 20+ yrs ago Sulfa Antibiotics Rash, 2010 Results for orders placed or performed in visit on 11/28/19 CBC Result Value Ref Range WBC 5.18 4.00 - 10.80 K/uL RBC 4.78 3.85 - 5.15 M/uL HGB 13.5 12.0 - 15.3 g/dL HCT 43.1 36.0 - 45.2 % MCV 90.2 81.5 - 97.5 fL MCH 28.2 27.0 - 34.0 pg MCHC 31.3 (L) 32.0 - 36.0 g/dL RDW 12.5 11.5 - 15.5 % PLT 247 140 - 400 K/uL MPV 12.2 (H) 6.6 - 11.1 fL NRBC'S 0 0 /100 WBCs Results for orders placed or performed in visit on 02/07/23 BASIC METABOLIC PANEL Result Value Ref Range BUN 18 6 - 20 mg/dL Creatinine 1.0 0.5 - 1.0 mg/dL Estimated Glomerular Filtration Rate 61 >=60 mL/min Sodium 142 135 - 146 mmol/L Potassium 4.3 3.5 - 5.1 mmol/L Chloride 105 98 - 107 mmol/L CO2 27 22 - 32 mmol/L Anion Gap 10 7 - 15 mmol/L Glucose 100 70 - 120 mg/dL Calcium 9.8 8.4 - 10.2 mg/dL Results for orders placed or performed in visit on 07/08/05 LIPID PANEL Result Value Ref Range HOURS FASTING 8 hours Triglycerides 132 55 - 240 mg/dL Cholesterol 172 <200 mg/dL HDL Cholesterol 71 (H) 40 - 59 mg/dL Cholesterol-HDL Ratio 2.4 LDL Cholesterol 75 0 - 130 mg/dL Results for orders placed or performed in visit on 08/16/21 LIPID PANEL WITH DIRECT LDL IF TG IS HIGH Result Value Ref Range Triglycerides 192 (H) <=174 mg/dL Cholesterol 145 <200 mg/dL HDL Cholesterol 63 >49 mg/dL Non-HDL Cholesterol 82 <=159 mg/dL Lab Results Component Value Date/Time HEMOGLOBIN A1C - [facility] 5.5 02/07/2023 09:40 AM HEMOGLOBIN A1C - [facility] 5.3 08/16/2021 04:23 PM Lab Results Component Value Date/Time TSH - [facility] 1.03 12/29/2022 11:31 AM TSH - [facility] 1.41 05/30/2022 10:23 AM TSH - [facility] 1.18 11/28/2019 02:06 PM TSH - [facility] 1.54 01/29/2019 10:00 AM TSH - [facility] 1.15 03/28/2017 03:24 PM GERARD ARSALAN SCREEN Date Value Ref Range Status 09/17/2007 NEGATIVE Final Results for orders placed or performed in visit on 12/29/22 VITAMIN B12 Result Value Ref Range Vitamin B12 361 232 - 1,245 pg/mL Results for orders placed or performed in visit on 03/16/16 FOLIC ACID Result Value Ref Range Folic Acid 14.0 >4.5 ng/mL No results found for: "RYMK52DOC5" No results found for: "BBKP93YFG2" No results found for: "[id number]" 25-Hydroxy Vitamin D (ng/mL) Date Value 05/30/2022 27 Vitamin D Level Interpretation deficient: <20 ng/ml insufficient: 20-30 ng/ml normal: 31-100 ng/ml REVIEW OF SYSTEMS: As above PHYSICAL EXAM: BP 108/64 (BP Site: Left Arm, BP Position: Sitting, BP Cuff Size: Regular) | Pulse 82 | Temp 37 C (98.6 F) (Tympanic) | Resp 18 | Wt 77.8 kg (171 lb 8 oz) | SpO2 90% | BMI 31.12 kg/m | BSA 1.85 m The patient is awake and alert speech and language are normal and affect is appropriate IMPRESSION: Chronic migraine. Patient has previously tried and failedamitriptyline baclofen propanolol Topamax nortriptyline gabapentin has had trigger point injections has been on Ajovy Botox. She probably has not been on Depakote or tizanidine . Will prescribe Emgality she should monitor for const ipation muscle cramps. She will return in 3 months Clarisa Adair MD 06/12/2023 1:09 PM documented in this encounter Nursing Notes * Connie Valencia LPN - 06/12/2023 12:46 PM EST Patient verified identity by spelling of last name and date. Chief Complaint Patient presents with Return Neuro documented in this encounter Plan of Treatment Upcoming Encounters Date Type Department Care Team (Late st Contact Info) Description 06/21/2023 1:40 PM EST Office Visit [facility] [place] [address] [place] [phone] Lashay Lundberg DO [address] [place] [address] 06/27/2023 1:00 PM EST Office Visit Pharmacy, [address] [place] [phone] [place] [address] 09/05/2023 2:00 PM EDT Office Visit Cardiology [address] [place] [address] Surjit Zamarripa PA-C [address] [place] [address] 09/14/2023 1:00 PM EDT Office Visit Neurology [facility] [place] [address] [place] [address] Clarisa Adair MD [address] [place] [address] 01/23/2024 1:40 PM EDT Office Visit Family Medicine [address] [place] [phone] George Boucher MD [address] [place] [address] [place] [address] 02/19/2024 1:30 PM EDT Imaging Radiology [address] [place] [address] 03/25/2024 2:30 PM EST Nurse Only Ancillary [address] [place] [address] [place], Nurse Annual [address] [place] [address] Scheduled Procedures Name Priority Associated Diagnoses Date/Ti [...] Scan 08/25/2023 08/24/2021 CKD HGB USE SMARTSET 83725 12/30/202312/29, 05/30/2022, 05/30/2022, Additional history exists CKD PHOS USE SMARTSET 86130 02/08/2024 02/07/2023 Mammogram 02/14/2024 02/13/2023, 12/15, 01/06/2021, [...] D LEVEL ONCE IN A LIFETIME-USE SMARTSET# [id number] Completed 05/30/2022 Cologuard Discontinued 07/26/2022, 0 10/2022, [...] as of this encounter Visit Diagnoses Diagnosis Family history of aneurysm- Primary Family history of other condition Migraine without aura and without status migrainosus, not intractable Migraine without aura, without mention of intractable migraine without mention of status migrainosus documented in this encounter Care Teams Exercise Equipment Specialist Relationship Specialty Start Date End Date George Cervantes MD [address] [place] [address] [place] [phone] PCP - General Family Medicine 10/07/14 documented as of this encounter
--- OUTSIDE RECORDS SUMMARY | 2023-09-06 09:43 | External Medical Summary | Summary of Care ---
Author Name Unknown Organization [facility] Address [address] [place] [address] Phone [phone] Care Team Providers Care Director Zone Name Role Phone Sheryl Cervantes MD Primary Care Provide r Reason for Visit * Reason Comments Medication Refill Encounter Details Date Type Department Care Team (Late st Contact Info) Description 05/23/2023 Refill Family Medicine [address] [phone] Sheryl Cervantes MD [address] [place] [address] [place] [id number] Allergies Active Allergy Reactions Criticality Noted Date Comments Morphine And Related 02/19/2001 swelling Penicillins 02/19/2001 Rash as an adult 20+ yrs ago Sulfa Antibiotics 02/19/2001 Rash, 2010 documented as of this encounter (statuses as of 05/23/2023) Medications Medication Sig Dispensed Refills Start Date [...] HOURS 10 Tablet 3 05/23/2023 5 Active Almotriptan Malate 12.5 MG Oral Tablet TAKE ONE TABLET BY MOUTH AT ONSET OF MIGRAINE. MAY REPEAT IN 2 HOURS. MAX DOSE 2 TABLETS IN 24 HOURS 10 Tablet 3 03/28/2023 4 Discontinu ed(Refill) documented as of this encounter (statuses as of 05/23/2023) Active Problems Problem Noted Date Diagnosed Date [...] as of this encounter (statuses as of 05/23/2023) Resolved Problems Problem Noted Date Diagnosed Date Resolved Date Chronic kidney disease, stage 3a 06/27/2022 02/07/2023 Overview: Per CKD protocol Abnormal PFT 12/25/2017 03/29/2019 Pulmonary hypertension 10/09/201401/10 Enthesopathy of hip 06/27/2003 03/07/20 17 ABNORMAL FINDINGS-BREAST 10/30/2002 Excessive menstruation 06/21/200204/29 Diarrhea 06/07/2016 documented as of this encounter (statuses as of 05/23/2023) Immunizations Name Administration Dates Next Due COVID-19 mRNA, LNP-s, No Pre serve, 2-Dose Series ([employer]) 03/08/2021,07/25/2020,07/04/2020 H1N1 2009 Influenza, IM 05/15/2009 [...] encounter Miscellaneous Notes * Telephone Encounter - Enrique Molina, [facility] - 05/23/2023 3:50 PM ESTSigned Prescriptions: Disp Refills Almotriptan Malate 12.5 MG Oral Tablet 10 Tab*3 Sig: TAKE ONE TABLET BY MOUTH AT ONSET OF MIGRAINE. MAY REPEAT IN 2 HOURS. MAX DOSE 2 TABLETS IN 24 HOURSAuthorizingProvider: SHERYL CERVANTESOrdering User: ENRIQUE MOLINA documented in this encounter Plan of Treatment Upcoming Encounters Date Type Department Care Team (Late st Contact Info) Description 06/12/2023 1:00 PM EST Office Visit [facility] [address] Clarisa Adair MD [address] [facility] [place] [id number] 06/27/2023 1:00 PM EST Office Visit Pharmacy, [address] [place] [address] [place] [address] 09/05/2023 2:00 PM EDT Office Visit Cardiology [address] [place] [address] Surjit Zamarripa PA-C [address] [place] [address] 01/23/2024 1:40 PM EDT Office Visit Family Medicine [address] [place] [phone] Sheryl Cervantes MD [address] [place] [address] [place] [address] 02/19/2024 1:30 PM EDT Imaging Radiology [address] [place] [address] 03/25/2024 2:30 PM EST Nurse Only Ancillary [address] [place] [address] [place], Nurse [address] [place] [address] Scheduled Procedures Name Priority Associated Diagnoses Date/Ti [...] Scan 08/25/2023 08/24/2021 CKD HGB USE SMARTSET [id number] 12/30/202312/29, 05/30/2022, 05/30/2022, Additional history exists CKD PHOS USE SMARTSET 40440 02/08/2024 02/07/2023 Mammogram 02/14/2024 02/13/2023, 08, 01/06/2021, [...] D LEVEL ONCE IN A LIFETIME-USE SMARTSET# [id number] Completed 05/30/2022 Cologuard Discontinued 07/26/2022, 10/2022, 07/18/2022 [...] filedocumented as of this encounter Care Teams Director Zone Relationship Specialty Start Date End Date Sheryl Cervantes MD [address] [place] [address] [place] [address] PCP - General Family Medicine 10/07/14 documented as of this encounter
--- OUTSIDE RECORDS SUMMARY | 2023-09-06 09:43 | External Medical Summary | Summary of Care ---
Author Name Unknown Organization [facility] Address [address] [place] [address] Phone [phone] Care Team Providers Care Working Second Hand Name Role Phone Sheryl Cervantes MD Primary Care Provide r Reason for Visit * Reason Comments Dosage Adjustment In Person (Anticoag Cl inic) Migraine Headache * Evaluate & Treat - Unlimited Visits (Within 30 days (routine)) - Authorized Specialty Diagnoses / Procedures Referred By Contac t Referred To Contact Pharmacist / Pharmacy Diagnoses Migraine without aura and without status migrainosus, not intractable Sheryl Cervantes MD [address] [place] [address] [place] [address] Referral ID Status Reason Start Date Expiration Date Visits Requested Visits Authorized [id number] Authorized Specialty Services Required 03/22/2023 99 99 Encounter Details Date Type Department Care Team (Late st Contact Info) Description 05/03/2023 3:00 PM EST Office Visit Pharmacy, [address] [place] [phone] [place] [address] Migraine variant* Allergies Active Allergy Reactions Criticality Noted Date Comments Morphine And Related 02/19/2001 swelling Penicillins 02/19/2001 Rash as an adult 20+ yrs ago Sulfa Antibiotics 02/19/2001 Rash, 2010 documented as of this encounter (statuses as of 05/04/2023) Medications Medication Sig Dispensed Refills Start Date End Date Status ASPIRIN 81 MG OR TBECIndications:in am Take by mouth. 30 0 06/11/2004 Active Diclofenac Sodium 1 % gelIndications:Gener alized osteoarthritis place 2gm topically on the skin 2 times a day to the affected area as directed 100 g 5 12/03/2019 Active Omeprazole 40 MG Oral Capsule Delayed Release (PriLOSEC)Indication s:Reflux esophagitis TAKE ONE CAPSULE BY MOUTH TWO TIMES A DAY 180 Capsule 1 10/13/2022 4 Active DULoxetine HCl 60 MG Oral [...] DAILY 100 Capsule 1 04/21/2023 4 Active documented as of this encounter (statuses as of 05/04/2023) Active Problems Problem Noted Date Diagnosed Date [...] as of this encounter (statuses as of 05/04/2023) Resolved Problems Problem Noted Date Diagnosed Date Resolved Date Chronic kidney disease, stage 3a 06/27/2022 02/07/2023 Overview: Per CKD protocol Abnormal PFT 12/25/2017 03/29/2019 Pulmonary hypertension 10/09/201401/10 Enthesopathy of hip 06/27/2003 03/07/20 17 ABNORMAL FINDINGS-BREAST 10/30/2002 Excessive menstruation 06/21/200204/29 Diarrhea 06/07/2016 documented as of this encounter (statuses as of 05/04/2023) Immunizations Name Administration Dates Next Due COVID-19 mRNA, LNP-s, No Pre serve, 2-Dose Series ([employer]) 03/08/2021,07/25/2020,07/04/2020 H1N1 2009 Influenza, IM 05/15/2009 Pneumococcal [...] as of this encounter Progress Notes * Nurys Chao, [facility] - 05/03/2023 2:58 PM EST Medication Therapy Disease Management [facility] - Migraine Management Progress Note Joana Ramirez, identified by name and date of , is a 68 year old female being seen for migraine management/education. Referring Physician: SHERYL CERVANTES Patient presents for initial visit. Current migraine medications: Prophylactic: Nurtec 75mg every other day (patient not taking) Abortive: Almotriptan 12.5mg Previous migraine medications tried: Almotriptan Malate Tabs - 12.5 MG Amitriptyline Baclofen Propanolol Topamax Nortriptyline Gabapentin Botox injections Previous migraine supplements tried: Patient states she tried several, however cannot remember exact names Features requiring escalation of care: None Therapy considerations: Asthma/COPD- use propranolol with caution Kidney stones- use topiramate with caution Possible exacerbating factors: None Recent Labs Units 02/07/23 0940 12/29/22 1131 05/30/22 1023 08/16/21 1623 CREATININE - [facility] mg/dL 1.0 1.0 1.1* 1.1* ESTIMATED GLOMERULAR FILTRATION RATE - [facility] mL/min 61 64 55* 58* ALT - [facility] U/L -- 26 24 23 Most recent answers to SANABRIA questionnaire: See Flowsheet Worrisome features:: New headache over 50 y/o; Worsening or atypical features (05/03/2023 3:00 PM) Medical History of:: None (05/03/2023 3:00 PM) Any 2 of 3 is predictive of Migraine:: Light Sensitivity; Nausea/Vomiting; Missed Work or Social Activity (05/03/2023 3:00 PM) Headache days per Month (Chronic Daily Headache is 15 or greater): 15 (05/03/2023 3:00 PM) Days of the week the patient takes analgesic/abortive medications: Greater than 2 days (can cause overuse headache) (05/03/2023 3:00 PM) ASSESSMENT & PLAN: ICD-10-CM 1. Migraine variant G43.809 Patient aware MTM is a clinical pharmacist visit, with focus on medication options for current diagnoses referred by Primary Care Provider for review and optimization. Focus of this visit is migrainefrequency/reduction control. Current concerns: Continuing migraines without relief; Several treatment failures Adherence: Reviewed current regimen. Patient states insurance would not pay for Nurtec. Never was able to obtain. Treatment options: CGRP inhibitor (Emgality?) Education provided: Common food triggers- Chocolate, soft cheese, red wine, artificial sweeteners, MSG, aspartame, nitrates, tyramine Common triggers- Delayed or missed meals, hormone changes, stress, weather change, alcohol, odors, caffeine withdrawal Diet- Eat well-balanced meals, with consistent meal times if possible Headache diary- Documenting things that happened shortly before an attack may help you recognize triggers to avoid later. This can also help track progress and therapy response Sleep- Regular sleep schedules help avoid migraines. Go to bed and wake at the same time each day. Avoid sleeping in on weekends or sleeping too little during the week. 7-8 hours of sleep every nightis ideal Stress- consider relaxation or stress management therapies Encouraged to work on headache diary and documenting episodes. Patient agreeable and expressed understanding. Patient currently following with neurology. Upcoming appointment on 06/12. Will plan to route to make aware Nurtec was NOT covered by insurance. Will defer further medication management to them at that time. Will plan to f/u x8 weeks to f/u on any possible medication changes. If continuing to followwith neurology will look to discharge from [facility] services. MEDICATION CHANGES: no change Prophylactic: Nurtec 75mg every other day (patient not taking) Abortive: Almotriptan 12.5mg FOLLOW UP: Return to clinic in 8 weeks 06/27/2023 Nurys Chao [facility] Clinical Pharmacist - [employer] Director Medication Therapy Management Clinic 05/03/2023, 3:02 PM documented in this encounter Plan of Treatment Upcoming Encounters Date Type Department Care Team (Late st Contact Info) Description 06/12/2023 1:00 PM EST Office Visit Neurology [facility] [address] [place] [address] Clarisa Adair MD [address] [place] [address] 06/27/2023 1:00 PM EST Office Visit Pharmacy, [address] [place] [address] [place] [address] 09/05/2023 2:00 PM EDT Office Visit Cardiology [address] [place] [address] Surjit Zamarripa PA-C [address] [place] [address] 01/23/2024 1:40 PM EDT Office Visit Family Medicine [address] [place] [phone] Sheryl Cervantes MD [address] [place] [address] [place] [address] 02/19/2024 1:30 PM EDT Imaging Radiology [address] [place] [address] 03/25/2024 2:30 PM EST Nurse Only Ancillary [address] [place] [address] [place], Nurse Annual [address] [place] [address] Scheduled Procedures Name Priority Associated Diagnoses Date/Ti me COLONOSCOPY FLEXIBLE PROXIMA L DIAGNOSTIC Recall History of colonic polyps Scheduled Referrals Name Type Priority Associated Diagnoses Orde r Schedule PHARMACIST MEDS THERAPY MGMT REFERRAL OP Referral Within 30 days (routine) Migraine without aura and without status migrainosus, not intractable Ordered: 03/22/2023 Health Maintenance Due Date Last Done Comments DTaP,Tdap,and Td Vaccines (2 - Td or Tdap) 07/14/2018 07/14/2008, 11/19/1991 COVID-19 Vaccine ( season) 2023 03/08/2021, 07/25/2020, 07/04/2020 Albumin/Creatinine Ratio 05/30/2023 05/30/2022 GFR 08/08/2023 02/07/2023, 12/13, 05/30/2022, Additional history exists DXA Scan 08/25/2023 08/24/2021 CKD HGB USE SMARTSET 47071 12/30/202312/29, 05/30/2022, 05/30/2022, Additional history exists CKD PHOS USE SMARTSET 63114 02/08/2024 02/07/2023 Mammogram 02/14/2024 02/13/2023, 12/15, 01/06/2021, [...] D LEVEL ONCE IN A LIFETIME-USE SMARTSET# [id number] Completed 05/30/2022 Cologuard Discontinued 07/26/2022, 03/0 10/2022, 07/18/2022 Colonoscopy Discontinued 12/19/2022, 080 11/2022, [...] as of this encounter Visit Diagnoses Diagnosis Migraine variant- Primary Variants of migraine, not elsewhere classified, without mention of intractable migraine without mention of status migrainosus documented in this encounter Care Teams Working Second Hand Relationship Specialty Start Date End Date Sheryl Cervantes MD [address] [place] [address] [place] [phone] PCP - General Family Medicine 10/07/14 documented as of this encounter
--- OUTSIDE RECORDS SUMMARY | 2023-09-06 09:43 | External Medical Summary | Summary of Care ---
Author Name Unknown Organization [facility] Address [address] [place] [address] Phone [phone] Care Team Providers Care Tool Supervisor Name Role Phone George Cervantes MD Primary Care Provide r Encounter Details Date Type Department Care Team (Late st Contact Info) Description 06/12/2023 Specialty Pharmacy [facility], [address] [address] Medication, [facility], [address] [address] Allergies Active Allergy Reactions Criticality Noted Date Comments Morphine And Related 02/19/2001 swelling Penicillins 02/19/2001 Rash as an adult 20+ yrs ago Sulfa Antibiotics 02/19/2001 Rash, 2010 documented as of this encounter (statuses as of 06/13/2023) Medications Medication Sig Dispensed Refills Start Date [...] MOUTH EVERY MORNING 90 Capsule 3 08/15/2022 Active Atorvastatin Calcium 20 MG Oral Tablet [...] as of this encounter (statuses as of 06/13/2023) Active Problems Problem Noted Date Diagnosed Date [...] as of this encounter (statuses as of 06/13/2023) Resolved Problems Problem Noted Date Diagnosed Date Resolved Date Chronic kidney disease, stage 3a 06/27/2022 02/07/2023 Overview: Per CKD protocol Abnormal PFT 12/25/2017 03/29/2019 Pulmonary hypertension 10/09/201401/10 Enthesopathy of hip 06/27/2003 03/07/20 17 ABNORMAL FINDINGS-BREAST 10/30/2002 Excessive menstruation 06/21/200204/29 Diarrhea 06/07/2016 documented as of this encounter (statuses as of 06/13/2023) Immunizations Name Administration Dates Next Due COVID-19 mRNA, LNP-s, No Pre serve, 2-Dose Series ([employer]) 03/08/2021,07/25/2020,07/04/2020 H1N1 2009 Influenza, IM 05/15/2009 Pneumococcal [...] as of this encounter Progress Notes * Dina Mancini OSA - 06/13/2023 11:04 AM EST Prescribed medication: Medication: Emgality Shipment date: 06/15/2023 Delivery method: Specialty Mail Location Medication Delivered too? Home Address: [address] [place] [address] Rd[address] [facility] [address] [employer] [employer] [facility] 06/13/2023,11:05 AM * Madi Hand [facility] - 06/13/2023 8:47 AM EST [facility] Retail Medication Protocol, Chart Review MRN Verified: yes Per protocol, further retail medication education being provided by office or by [facility] when requested by patient. Prescribed medication: Medication: Emgality (galcanezumab) Strength and Frequency: Inject 240 mg (2 pens) once for loading dose, then inject 120 mg (1 pen) monthly thereafter Indication: migraine prevention Appropriate dose based on available information: yes Applicable lab values: Not Applicable. Wgt/BSA: Not Applicable. Reason for call to patient today by lead injection mold technician: New start [facility] info: n/a Shipment to be set up by lead injection mold technician, questions given to pharmacist as needed. Madi Hand [facility] 06/13/2023, 8:47 AM documented in this encounter Plan of Treatment Upcoming Encounters Date Type Department Care Team (Late st Contact Info) Description 06/21/2023 1:40 PM EST Office Visit [facility] [address] [place] [phone] Lashay Lundberg DO [address] [place] [address] 06/27/2023 1:00 PM EST Office Visit Pharmacy, [address] [place] [address] [place] [address] 09/05/2023 2:00 PM EDT Office Visit Cardiology [address] [place] [address] Surjit Zamarripa PA-C [address] [place] [address] 09/14/2023 1:00 PM EDT Office Visit Neurology [facility] [address] [place] [address] Clarisa Adair MD [address] [place] [address] 01/23/2024 1:40 PM EDT Office Visit Family Medicine [address] [place] [phone] George Cervantes MD [address] [place] [address] [place] [address] 02/19/2024 1:30 PM EDT Imaging Radiology [address] [place] [address] 03/25/2024 2:30 PM EST Nurse Only Ancillary [address] [place] [address] [place], Nurse Annual Wellness [address] [place] [address] [place] [address] Scheduled Procedures Name Priority Associated Diagnoses Date/Ti me COLONOSCOPY FLEXIBLE PROXIMA L DIAGNOSTIC Recall History of colonic polyps Health Maintenance Due Date Last Done Comments DTaP,Tdap,and Td Vaccines (2 - Td or Tdap) 07/14/2018 07/14/2008, 11/19/1991 COVID-19 Vaccine ( - season) 2023 03/08/2021, 07/25/2020, 07/04/2020 Albumin/Creatinine Ratio 05/30/2023 05/30/2022 GFR 08/08/2023 02/07/2023, 08/11/2022, 05/30/2022, Additional history exists DXA Scan 08/25/2023 08/24/2021, 08/24/2021 CKD HGB USE SMARTSET 59186 12/30/202312/29, 05/30/2022, 05/30/2022, Additional history exists CKD PHOS USE SMARTSET 57866 02/08/2024 02/07/2023 Mammogram 02/14/2024 02/13/2023, 100 06/2022, [...] D LEVEL ONCE IN A LIFETIME-USE SMARTSET# [id number] Completed 05/30/2022 Cologuard Discontinued 07/26/2022, 03/0 10/2022, 07/18/2022 Colonoscopy Discontinued 12/19/2022, 08/0 11/2022, 10/02/2012, Additional history exists Colorectal Cancer [...] filedocumented as of this encounter Care Teams Tool Supervisor Relationship Specialty Start Date End Date George Cervantes MD [address] [place] [address] [place] [phone] PCP - General Family Medicine 10/07/14 documented as of this encounter
--- OUTSIDE RECORDS SUMMARY | 2023-09-06 09:43 | External Medical Summary | Summary of Care ---
Author Name Unknown Organization [facility] Address [address] [place] [address] Phone [phone] Care Team Providers Care French Polisher Name Role Phone Sheryl Cervantes MD Primary Care Provide r Reason for Visit * Reason Comments Medication Refill Encounter Details Date Type Department Care Team (Late st Contact Info) Description 04/21/2023 Refill Family Medicine [address] [phone] Sheryl Cervantes MD [address] [place] [address] [place] [address] GENERAL OSTEOARTHROSIS; CERVICAL DISC DEGEN; Fibromyalgia Allergies Active Allergy Reactions Criticality Noted Date Comments Morphine And Related 02/19/2001 swelling Penicillins 02/19/2001 Rash as an adult 20+ yrs ago Sulfa Antibiotics 02/19/2001 Rash, 2010 documented as of this encounter (statuses as of 04/21/2023) Medications Medication Sig Dispensed Refills Start Date [...] disc,Fibromyalgia TAKE ONE CAPSULE BY MOUTH ONCE DAILY DO NOT CRUSH CUT OR CHEW. TAKE WITH 60MG DOSE FOR A TOTAL OF 90MG DAILY 100 Capsule 1 04/21/2023 4 Active DULoxetine HCl 30 MG Oral Capsule Delayed Release Particles (Cymbalta)Indicatio ns:Generalized osteoarthritis,Dege neration of cervical intervertebral disc,Fibromyalgia TAKE ONE CAPSULE BY MOUTH ONCE DAILY DO NOT CRUSH CUT OR CHEW. TAKE WITH 60MG DOSE FOR A TOTAL OF 90MG DAILY 100 Capsule 1 09/05/2022 3 Discontinu ed(Refill) documented as of this encounter (statuses as of 04/21/2023) Active Problems Problem Noted Date Diagnosed Date [...] as of this encounter (statuses as of 04/21/2023) Resolved Problems Problem Noted Date Diagnosed Date Resolved Date Chronic kidney disease, stage 3a 06/27/2022 02/07/2023 Overview: Per CKD protocol Abnormal PFT 12/25/2017 03/29/2019 Pulmonary hypertension 10/09/201401/10 Enthesopathy of hip 06/27/2003 03/07/20 17 ABNORMAL FINDINGS-BREAST 10/30/2002 Excessive menstruation 06/21/200204/29 Diarrhea 06/07/2016 documented as of this encounter (statuses as of 04/21/2023) Immunizations Name Administration Dates Next Due COVID-19 mRNA, LNP-s, No Pre serve, 2-Dose Series ([employer]) 03/08/2021,07/25/2020,07/04/2020 H1N1 2009 Influenza, IM 05/15/2009 Pneumococcal Conjugate Vacc, 13 Valent (Prevnar) 12/03/2019 Pneumococcal Polysaccharide PPV23 (Pneumovax) 01/12/2022,10/07/2014 SEASONAL INFLUENZA, PF, 6 M & Above, IM , (FLULAVAL or FLUZONE) 01/16/2018,01/27/2017 Season Influenza, Quad, PF, Adjuvanted, 65+ Yrs, IM (FLUAD) 04/01/2021,01/09/2020 Seasonal Influenza, Quadriva lent Hd (Fluzone Hd) [...] encounter Miscellaneous Notes * Telephone Encounter - Robin Lroa [facility] - 04/21/2023 8:38 AM EST Signed Prescriptions: Disp Refills DULoxetine HCl 30 MG Oral Capsule Delayed *100 Ca*1 Sig: TAKE ONE CAPSULE BY MOUTH ONCE DAILY DO NOT CRUSH CUT OR CHEW. TAKE WITH 60MG DOSE FOR A TOTAL OF 90MG DAILYAuthorizing Provider: SHERYL CERVANTESOrdering User: ROBIN LORA documented in this encounter Plan of Treatment Upcoming Encounters Date Type Department Care Team (Late st Contact Info) Description 06/12/2023 1:00 PM EST Office Visit Neurology [facility] [address] [facility] [place] [address] Clarisa Adair MD [address] [facility] [place] [address] 09/05/2023 2:00 PM EDT Office Visit Cardiology [address] [place] [address] Surjit Zamarripa PA-C [address] [place] [address] 01/23/2024 1:40 PM EDT Office Visit Family Medicine [address] [place] [phone] Sheryl Cervantes MD [address] [place] [address] [place] [address] 02/19/2024 1:30 PM EDT Imaging Radiology [address] [place] [address] 03/25/2024 2:30 PM EST Nurse Only Ancillary [address] [place] [address] [place], Nurse [address] [place] [address] Scheduled Procedures Name Priority Associated Diagnoses Date/Ti [...] Scan 08/25/2023 08/24/2021 CKD HGB USE SMARTSET [id number] 12/30/202312/29, 05/30/2022, 05/30/2022, Additional history exists CKD PHOS USE SMARTSET 46285 02/08/2024 02/07/2023 Mammogram 02/14/2024 02/13/2023, 12/15, 01/06/2021, [...] D LEVEL ONCE IN A LIFETIME-USE SMARTSET# [id number] Completed 05/30/2022 Cologuard Discontinued 07/26/2022, 10/2022, 07/18/2022 [...] as of this encounter Visit Diagnoses Diagnosis GENERAL OSTEOARTHROSIS Generalized osteoarthrosis, unspecified site CERVICAL DISC DEGEN Degeneration of cervical intervertebral disc Fibromyalgia Mylagia and myositis, unspecified documented in this encounter Care Teams French Polisher Relationship Specialty Start Date End Date Sheryl Cervantes MD [address] [place] [address] [place] [address] PCP - General Family Medicine 10/07/14 documented as of this encounter
--- OUTSIDE RECORDS SUMMARY | 2023-09-06 09:44 | External Medical Summary | Summary of Care ---
Author Name Unknown Organization [facility] Address [address] [place] [address] Phone [phone] Care Team Providers Care Structural Fitter Name Role Phone George Cervantes MD Primary Care Provide r Reason for Visit * Reason Onset Date Comments Precert Denied 04/04/2023 [facility] Encounter Details Date Type Department Care Team (Late st Contact Info) Description 04/04/2023 Telephone Neurology [facility] [address] [place] [address] Clarisa [place] MD [address] [facility] [address] Precert Denied ([facility]) Allergies Active Allergy Reactions Criticality Noted Date Comments Morphine And Related 02/19/2001 swelling Penicillins 02/19/2001 Rash as an adult 20+ yrs ago Sulfa Antibiotics 02/19/2001 Rash, 2010 documented as of this encounter (statuses as of 04/10/2023) Medications Medication Sig Dispensed Refills Start Date [...] Capsule 1 10/13/2022 4 Active DULoxetine HCl 30 MG Oral Capsule Delayed Release Particles (Cymbalta)Indication s:Generalized osteoarthritis,Degen eration of cervical intervertebral disc,Fibromyalgia TAKE ONE CAPSULE BY MOUTH ONCE DAILY DO NOT CRUSH CUT OR CHEW. TAKE WITH 60MG DOSE FOR A TOTAL OF 90MG DAILY 100 Capsule 1 09/05/2022 4 Active DULoxetine HCl 60 MG Oral [...] migraine prevention 15 Tablet 5 04/03/2023 Active Cholestyramine 4 GM Oral Packet (Questran)Indication s:Irritable bowel syndrome with diarrhea DISSOLVE TWO PACKETS IN LIQUID AND TAKE BY MOUTH DAILY 180 Each 1 04/05/2022 3 Additional Information Patient taking differently: 4 g Oral EVERY OTHER DAY, DISSOLVE TWO PACKETS IN LIQUID AND TAKE BY MOUTH EVERY OTHER DAY, Reported on 12/14/2022 documented as of this encounter (statuses as of 04/10/2023) Active Problems Problem Noted Date Diagnosed Date [...] as of this encounter (statuses as of 04/10/2023) Resolved Problems Problem Noted Date Diagnosed Date Resolved Date Chronic kidney disease, stage 3a 06/27/2022 02/07/2023 Overview: Per CKD protocol Abnormal PFT 12/25/2017 03/29/2019 Pulmonary hypertension 10/09/201401/10 Enthesopathy of hip 06/27/2003 03/07/20 17 ABNORMAL FINDINGS-BREAST 10/30/2002 Excessive menstruation 06/21/200204/29 Diarrhea 06/07/2016 documented as of this encounter (statuses as of 04/10/2023) Immunizations Name Administration Dates Next Due COVID-19 [...] Influenza, Trivalen t, Adjuvanted, 65+ yrs 02/12/2019 TD - Tetanus/Diptheria (ADULT) 11/19/1991 TDAP (age 11 and older)(Adacel) 07/14/2008 Varicella [...] encounter Miscellaneous Notes * Telephone Encounter - Zenaida Decker LPN - 04/04/2023 9:26 AM EST Neurology Pre-Cert Request Medication/Disease State Information: Medication: Rimegepant (Nurtec)- 75 mg every other day Diagnosis (including ICD-10): Migraine - Migraine without aura G43.0 - Self- administered - route pre-cert request to [id number] See corresponding visit note(s) for additional supporting clinical information. Office Information: Prescriber: Clarisa Adair MD documented in this encounter Plan of Treatment Upcoming Encounters Date Type Department Care Team (Late st Contact Info) Description 04/17/2023 1:45 PM EST Imaging Radiology [address] [place] [address] 04/17/2023 3:00 PM EST Office Visit Pharmacy, [address] [place] [address] [place] [address] 06/12/2023 1:00 PM EST Office Visit Neurology [facility] [address] [facility] [place] [address] Clarisa [place] MD [address] [place] [address] 09/05/2023 2:00 PM EDT Office Visit Cardiology [address] [place] [address] Surjit Zamarripa PA-C [address] [place] [address] 01/23/2024 1:40 PM EDT Office Visit Family Medicine [address] [place] [phone] eGorge Cervantes MD [address] [place] [address] [place] [address] 02/19/2024 1:30 PM EDT Imaging Radiology [address] [place] [address] 03/25/2024 2:30 PM EST Nurse Only Ancillary [address] [place] [address] [place], Nurse [address] [place] [address] Scheduled Procedures Name Priority Associated Diagnoses Date/Ti [...] Scan 08/25/2023 08/24/2021 CKD HGB USE SMARTSET 33535 12/30/202312/29, 05/30/2022, 05/30/2022, Additional history exists CKD PHOS USE SMARTSET 95013 02/08/2024 02/07/2023 Mammogram 02/14/2024 02/13/2023, 08, 01/06/2021, [...] D LEVEL ONCE IN A LIFETIME-USE SMARTSET# [id number] Completed 05/30/2022 Cologuard Discontinued 07/26/2022, 10/2022, 07/18/2022 [...] filedocumented as of this encounter Care Teams Structural Fitter Relationship Specialty Start Date End Date George Cervantes MD [address] [place] [address] [place] [address] PCP - General Family Medicine 10/07/14 documented as of this encounter
--- OUTSIDE RECORDS SUMMARY | 2023-09-06 09:44 | External Medical Summary | Summary of Care ---
Author Name Unknown Organization [facility] Address [address] [place] [address] Phone [phone] Care Team Providers Care Avionics Technician Name Role Phone George Cervantes MD Primary Care Provide r Reason for Visit * Reason Onset Date Comments Precert In Process 04/04/[address] [facility] Encounter Details Date Type Department Care Team (Late st Contact Info) Description 04/04/[address] [facility] [address] [place] [address] Clarisa Adair MD [address] [place] [place] [address] Precert In Process ( LT [facility]) Allergies Active Allergy Reactions Criticality Noted Date Comments Morphine And Related 02/19/2001 swelling Penicillins 02/19/2001 Rash as an adult 20+ yrs ago Sulfa Antibiotics 02/19/2001 Rash, 2010 documented as of this encounter (statuses as of 04/04/2023) Medications Medication Sig Dispensed Refills Start Date [...] BEDTIME 180 Tablet 3 05/12/2022 4 Active Cholestyramine 4 GM Oral Packet (Questran)Indication s:Irritable bowel syndrome with diarrhea DISSOLVE TWO PACKETS IN LIQUID AND TAKE BY MOUTH DAILY 180 Each 1 04/05/2022 3 Active Additional Information Patient taking differently: 4 g Oral EVERY OTHER DAY, DISSOLVE TWO PACKETS IN LIQUID AND TAKE BY MOUTH EVERY OTHER DAY, Reported on 12/14/2022 Atorvastatin Calcium 20 MG Oral Tablet (Lipitor)Indications [...] migraine prevention 15 Tablet 5 04/03/2023 Active documented as of this encounter (statuses as of 04/04/2023) Active Problems Problem Noted Date Diagnosed Date [...] as of this encounter (statuses as of 04/04/2023) Resolved Problems Problem Noted Date Diagnosed Date Resolved Date Chronic kidney disease, stage 3a 06/27/2022 02/07/2023 Overview: Per CKD protocol Abnormal PFT 12/25/2017 03/29/2019 Pulmonary hypertension 10/09/201401/10 Enthesopathy of hip 06/27/2003 03/07/20 17 ABNORMAL FINDINGS-BREAST 10/30/2002 Excessive menstruation 06/21/200204/29 Diarrhea 06/07/2016 documented as of this encounter (statuses as of 04/04/2023) Immunizations Name Administration Dates Next Due COVID-19 mRNA, LNP-s, No Pre serve, 2-Dose Series ([employer]) 03/08/2021,07/25/2020,07/04/2020 H1N1 2009 Influenza, IM 05/15/2009 Pneumococcal [...] Self- administered - route pre-cert request to [id number] See corresponding visit note(s) for additional supporting clinical information. Office Information: Prescriber: Clarisa Adair MD documented in this encounter Plan of Treatment Upcoming Encounters Date Type Department Care Team (Late st Contact Info) Description 04/17/2023 1:45 PM EST Imaging Radiology [address] [place] [address] 04/17/2023 3:00 PM EST Office Visit Pharmacy, [address] [place] [phone] [place] [address] 06/12/2023 1:00 PM EST Office Visit Neurology [facility] [address] [place] [address] Clarisa Adair MD 200 [facility] [place] [address] 09/05/2023 2:00 PM EDT Office Visit Cardiology [address] [place] [address] Surjit Zamarripa PA-C [address] [place] [address] 01/23/2024 1:40 PM EDT Office Visit Family Medicine [address] [place] [phone] George Cervantes MD [address] [place] [address] [place] [address] 02/19/2024 1:30 PM EDT Imaging Radiology [address] [place] [address] 03/25/2024 2:30 PM EST Nurse Only Ancillary [address] [place] [address] [place], Nurse Annual [address] [place] [address] Scheduled Procedures Name Priority Associated Diagnoses Date/Ti [...] Scan 08/25/2023 08/24/2021 CKD HGB USE SMARTSET [id number] 12/30/202312/29, 05/30/2022, 05/30/2022, Additional history exists CKD PHOS USE SMARTSET [id number] 02/08/2024 02/07/2023 Mammogram 02/14/2024 02/13/2023, 12/15, 01/06/2021, [...] D LEVEL ONCE IN A LIFETIME-USE SMARTSET# [id number] Completed 05/30/2022 Cologuard Discontinued 07/26/2022, 10/2022, 07/18/2022 [...] filedocumented as of this encounter Care Teams Avionics Technician Relationship Specialty Start Date End Date George Cervantes MD [address] [place] [address] [place] [address] PCP - General Family Medicine 10/07/14 documented as of this encounter
--- OUTSIDE RECORDS SUMMARY | 2023-09-06 09:44 | External Medical Summary | Summary of Care ---
Author Name Unknown Organization [facility] Address [address] [place] [address] Phone [phone] Care Team Providers Care Bus Person Name Role Phone George Cervantes MD Primary Care Provide r Reason for Visit * Reason Onset Date Comments Precert In Process 04/04/2023 LT [facility] Encounter Details Date Type Department Care Team (Late st Contact Info) Description 04/04/2023 Telephone Neurology [facility] [address] [place] [address] Clarisa Adair MD [address] [place] [facility] [place] [address] Precert In Process ( LT [facility]) Allergies Active Allergy Reactions Criticality Noted Date [...] mRNA, LNP-s, No Pre serve, 2-Dose Series ([employer]) 03/08/2021,07/25/2020,07/04/2020 H1N1 2009 Influenza, IM 05/15/2009 Pneumococcal [...] Self- administered - route pre-cert request to [id number] See corresponding visit note(s) for additional supporting clinical information. Office Information: Prescriber: Clarisa Adair MD documented in this encounter Plan of Treatment Upcoming Encounters Date Type Department Care Team (Late st Contact Info) Description 04/17/2023 1:45 PM EST Imaging Radiology [address] [place] [address] 04/17/2023 3:00 PM EST Office Visit Pharmacy, [address] [place] [phone] [place] [address] 06/12/2023 1:00 PM EST Office Visit Neurology [facility] [address] [place] [address] Clarisa Adair MD 200 [facility] [place] [address] 09/05/2023 2:00 PM EDT Office Visit Cardiology [address] [place] [address] Surjit Zamarripa PA-C [address] [place] [address] 01/23/2024 1:40 PM EDT Office Visit Family Medicine [address] [place] [phone] George Cervantes MD [address] [place] [address] [place] [address] 02/19/2024 1:30 PM EDT Imaging Radiology [address] [place] [address] 03/25/2024 2:30 PM EST Nurse Only Ancillary [address] [place] [address] [place], Nurse Annual [address] [place] [address] Scheduled Procedures Name Priority Associated Diagnoses Date/Ti [...] Scan 08/25/2023 08/24/2021 CKD HGB USE SMARTSET [id number] 12/30/202312/29, 05/30/2022, 05/30/2022, Additional history exists CKD PHOS USE SMARTSET 53770 02/08/2024 02/07/2023 Mammogram 02/14/2024 02/13/2023, 12/15, 01/06/2021, [...] D LEVEL ONCE IN A LIFETIME-USE SMARTSET# [id number] Completed 05/30/2022 Cologuard Discontinued 07/26/2022, 10/2022, 07/18/2022 [...] filedocumented as of this encounter Care Teams Bus Person Relationship Specialty Start Date End Date George Cervantes MD [address] [place] [address] [place] [address] PCP - General Family Medicine 10/07/14 documented as of this encounter
--- OUTSIDE RECORDS SUMMARY | 2023-09-06 09:44 | External Medical Summary | Summary of Care ---
Author Name Unknown Organization [facility] Address [address] [place] [address] Phone [phone] Care Team Providers Care Sales Operations Manager Name Role Phone George Cervantes MD Primary Care Provide r Reason for Visit * Reason Onset Date Comments Medication Pre-auth 04/04/2023 Encounter Details Date Type Department Care Team (Late st Contact Info) Description 04/04/2023 Telephone Neurology [facility] [address] [place] [address] Clarisa Adair MD [address] [facility] [place] [address] Medication Pre-auth Allergies Active Allergy Reactions Criticality Noted Date [...] mRNA, LNP-s, No Pre serve, 2-Dose Series ([employer]) 03/08/2021,07/25/2020,07/04/2020 H1N1 2009 Influenza, IM 05/15/2009 Pneumococcal [...] Self- administered - route pre-cert request to [id number] See corresponding visit note(s) for additional supporting clinical information. Office Information: Prescriber: Clarisa Adair MD documented in this encounter Plan of Treatment Upcoming Encounters Date Type Department Care Team (Late st Contact Info) Description 04/17/2023 1:45 PM EST Imaging Radiology [address] [place] [address] 04/17/2023 3:00 PM EST Office Visit Pharmacy, [address] [place] [address] [place] [address] 06/12/2023 1:00 PM EST Office Visit Neurology [facility] [address] [place] [address] Clarisa Adair MD [address] [place] [address] 09/05/2023 2:00 PM EDT Office Visit Cardiology [address] [place] [address] Surjit Zamarripa PA-C [address] [place] [address] 01/23/2024 1:40 PM EDT Office Visit Family Medicine [address] [place] [phone] George Cervantes MD [address] [place] [address] [place] [address] 02/19/2024 1:30 PM EDT Imaging Radiology [address] [place] [address] 03/25/2024 2:30 PM EST Nurse Only Ancillary [address] [place] [address] [place], Nurse Annual [address] [place] [address] Scheduled Procedures Name Priority Associated Diagnoses Date/Ti [...] Scan 08/25/2023 08/24/2021 CKD HGB USE SMARTSET [id number] 12/30/202312/29, 05/30/2022, 05/30/2022, Additional history exists CKD PHOS USE SMARTSET 19086 02/08/2024 02/07/2023 Mammogram 02/14/2024 02/13/2023, 083 , 01/06/2021, Additional history exists Depression Screening 03/22/2024 [...] D LEVEL ONCE IN A LIFETIME-USE SMARTSET# [id number] Completed 05/30/2022 Cologuard Discontinued 07/26/2022, 10/2022, 07/18/2022 [...] filedocumented as of this encounter Care Teams Sales Operations Manager Relationship Specialty Start Date End Date George Cervantes MD [address] [place] [address] [place] [phone] PCP - General Family Medicine 10/07/14 documented as of this encounter
--- OUTSIDE RECORDS SUMMARY | 2023-09-06 09:44 | External Medical Summary | Summary of Care ---
Author Name Unknown Organization [facility] Address [address] [place] [address] Phone [phone] Care Team Providers Care Premium Cancellation Clerk Name Role Phone George Cervantes MD Primary Care Provide r Reason for Visit * Reason Onset Date Comments Precert In Process 04/04/[address] [facility] Encounter Details Date Type Department Care Team (Late st Contact Info) Description 04/04/2023 Telephone Neurology [facility] [address] [place] [address] Clarisa Adair MD [address] [place] [address] Precert In Process ( LT [facility]) Allergies Active Allergy Reactions Criticality Noted [...] mRNA, LNP-s, No Pre serve, 2-Dose Series ([employer]) 03/08/2021,07/25/2020,07/04/2020 H1N1 2009 Influenza, IM 05/15/2009 Pneumococcal [...] Self- administered - route pre-cert request to [id number] See corresponding visit note(s) for additional supporting clinical information. Office Information: Prescriber: Clarisa Adair MD documented in this encounter Plan of Treatment Upcoming Encounters Date Type Department Care Team (Late st Contact Info) Description 04/17/2023 1:45 PM EST Imaging Radiology [address] [place] [address] 04/17/2023 3:00 PM EST Office Visit Pharmacy, [address] [place] [phone] [place] [address] 06/12/2023 1:00 PM EST [facility] [place] [address] Clarisa Adiar MD 200 [facility] [place] [address] 09/05/2023 2:00 PM EDT Office Visit Cardiology [address] [place] [address] Surjit Zamarripa PA-C [address] [place] [address] 01/23/2024 1:40 PM EDT Office Visit Family Medicine [address] [place] [phone] George Cervantes MD [address] [place] [address] [place] [address] 02/19/2024 1:30 PM EDT Imaging Radiology [address] [place] [address] 03/25/2024 2:30 PM EST Nurse Only Ancillary [address] [place] [address] [place], Nurse Annual [address] [place] [address] Scheduled Procedures Name Priority Associated Diagnoses Date/Ti [...] Scan 08/25/2023 08/24/2021 CKD HGB USE SMARTSET [id number] 12/30/202312/29, 05/30/2022, 05/30/2022, Additional history exists CKD PHOS USE SMARTSET 98366 02/08/2024 02/07/2023 Mammogram 02/14/2024 02/13/2023, 12/15, 01/06/2021, [...] D LEVEL ONCE IN A LIFETIME-USE SMARTSET# [id number] Completed 05/30/2022 Cologuard Discontinued 07/26/2022, 10/2022, 07/18/2022 [...] filedocumented as of this encounter Care Teams Premium Cancellation Clerk Relationship Specialty Start Date End Date George Cervantes MD [address] [place] [address] [place] [address] PCP - General Family Medicine 10/07/14 documented as of this encounter
--- OUTSIDE RECORDS SUMMARY | 2023-09-06 09:44 | External Medical Summary | Summary of Care ---
Author Name Unknown Organization [facility] Address [address] [place] [address] Phone [phone] Care Team Providers Care Weigher Operator Name Role Phone George Cervantes MD Primary Care Provide r Reason for Referral * Precert (Within 10 days (routine)) - Pending Review Specialty Diagnoses / Procedures Referred By Contac t Referred To Contact Radiology Diagnoses Family history of aneurysm Procedures MRA HEAD WO CONTRAST [facility] [address] Referral ID Status Reason Start Date Expiration Date V isits Requested Visits Authorized [id number] Pending Review 04/03/2023 999 999 Reason for Visit * Reason Comments NEW PATIENT * Evaluate & Treat - Unlimited Visits (Within 30 days (routine)) - Authorized Specialty Diagnoses / Procedures Referred By Contac t Referred To Contact Neurology Diagnoses Migraine without aura and without status migrainosus, not intractable George Cervantes MD [address] [place] [address] [place] [address] Referral ID Status Reason Start Date Expiration Date Visits Requested Visits Authorized [id number] Authorized Specialty Services Required 03/22/[phone] Encounter Details Date Type Department Care Team (Late st Contact Info) Description 04/03/2023 8:00 AM EST Office Visit Neurology State Devin Perez 200 [facility] [place] [address] Clarisa Adair MD 200 [facility] [place] [address] Family history of aneurysm* Allergies Active Allergy Reactions Criticality Noted Date Comments Morphine And Related 02/19/2001 swelling Penicillins 02/19/2001 Rash as an adult 20+ yrs ago Sulfa Antibiotics 02/19/2001 Rash, 2010 documented as of this encounter (statuses as of 04/19/2023) Medications Medication Sig Dispensed Refills Start Date [...] as of this encounter (statuses as of 04/19/2023) Active Problems Problem Noted Date Diagnosed Date [...] as of this encounter (statuses as of 04/19/2023) Resolved Problems Problem Noted Date Diagnosed Date Resolved Date Chronic kidney disease, stage 3a 06/27/2022 02/07/2023 Overview: Per CKD protocol Abnormal PFT 12/25/2017 03/29/2019 Pulmonary hypertension 10/09/201401/10 Enthesopathy of hip 06/27/2003 03/07/20 17 ABNORMAL FINDINGS-BREAST 10/30/2002 Excessive menstruation 06/21/200204/29 Diarrhea 06/07/2016 documented as of this encounter (statuses as of 04/19/2023) Immunizations Name Administration Dates Next Due COVID-19 mRNA, LNP-s, No Pre serve, 2-Dose Series ([employer]) 03/08/2021,07/25/2020,07/04/2020 H1N1 2009 Influenza, IM 05/15/2009 Pneumococcal [...] Date Smoking Tobacco: Never Smokeless Tobacco: Never Tobacco Cessation:Counseling Given: Not Answered Alcohol Use Standard Drinks/Week Comments Not Currently [...] Sign Reading Time Taken Comments Blood Pressure 116/66 04/03/2023 7:42 AM EST Pulse 82 04/03/2023 7:42 AM EST Temperature 36.7 C (98.1 F) 04/03/2023 7:42 AM ES T Respiratory Rate 18 04/03/2023 7:42 AM EST Oxygen Saturation 95% 04/03/2023 7:42 AM EST Inhaled Oxygen Concentration - - Weight 77 kg (169 lb 12.8 oz) 04/03/2023 7:42 AM EST Height - - Body Mass Index 30.81 03/22/2023 2:44 PM EST documented in this encounter Patient Instructions * Patient Instructions* Clarisa Adair MD - 04/03/2023 8:28 AM EST Don't take as needed meds for headache more than 2-3 days each week. Doing so could increase your headache Get sleep study scheduled. Sleep apnea can cause headaches documented in this encounter Progress Notes * Clarisa Adair MD - 04/03/2023 8:37 AM EST CLINIC NOTES Neurology [facility] [place] [address] [facility] [place] [address] Joana Ramirez : 1955 NEUROLOGY OUTPATIENT NOTE 04/03/2023 HISTORY: The patient is referred for consultation by Dr. Cervantes, who will be receiving a copy of this note. Reason for consultation. Patient is a 68-year-old right-handed female with a very longstanding history of headache. The headaches have recently changed in that they are more in the morning than they had been but they tend to daily occasionally she will go 2-3 weeks without a headache. Headaches arebifrontal sharp with nausea but no vomiting photophobia and phonophobia no change in vision no tinnitus no unilateral weakness or numbness. No clear triggers. Patient takes Axert or Excedrin migraineon almost all days. New line she is not otherwise been ill. New line she admits to snoring poorly restorative sleep and probable apnea. She is to schedule herself for a sleep study. She had put that o ff as she was determining what her cost would be but apparently it is affordable new lines in the past she is been on amitriptyline baclofen propanolol Topamax nortriptyline gabapentin has had trigger point injections has been on Ajovy Botox. She probably has not been on Depakote or tizanidine. Newline on a PRN basis she is taken Imitrex Amerge Relpax Axert. She has a history of asthma and kidney stones no history of heart disease. She does not have adverse effects when she takes a triptan. Past Medical History: Diagnosis Date Diarrhea since [...] performed by Daisy Rios DO at ENDOSCOPY [facility] COLONOSCOPY, DIAGNOSTIC (RECTUM) 12/19/2022 biopsies show hyperplastic polyps/recall 5 years/COLONOSCOPY FLEXIBLE PROXIMAL DIAGNOSTIC performedby Ifeoma Peña MD at ENDOSCOPY [facility] EGD, FLEXIBLE, DIAGNOSTIC 10/02/2012 UPPER GI ENDOSCOPY DIAGNOSTIC performed by Daisy Rios DO at ENDOSCOPY [facility] EGD, FLEXIBLE, DIAGNOSTIC 12/11/2019 gastritis/biopsies show inflammatory changes in stomach/ESOPHAGOGASTRODUODENOSCOPY (EGD), FLEXIBLE,TRANSORAL, DIAGNOSTIC performed by Daisy Rios DO at ENDOSCOPY [facility] EGD, FLEXIBLE, W/BIOPSY 01/09/2007 path-normal EGD, W/ENDOSCOPIC [...] Not on file Occupational History Occupation: nursing unit clerk Employer: [email or web address] 452 Tobacco Use Smoking status: Never Smokeless tobacco: [...] affected area as directed 100 g 5 Omeprazole 40 MG Oral Capsule Delayed Release (PriLOSEC) TAKE ONE CAPSULE BY MOUTH TWO TIMES A DAY 180 Capsule 1 DULoxetine HCl 30 MG Oral Capsule Delayed Release Particles (Cymbalta) TAKE ONE CAPSULE BY MOUTH ONCE DAILY DO NOT CRUSH CUT OR CHEW. TAKE WITH 60MG DOSE FOR A TOTAL OF 90MG DAILY 100 Capsule 1 DULoxetine HCl 60 MG Oral Capsule Delayed Release Particles (Cymbalta) TAKE ONE CAPSULE BY MOUTH EVERY MORNING 90 Capsule 3 Metoprolol Succinate ER 50 MG Oral Tablet Extended Release 24 Hour (toPROL XL) TAKE ONE TABLET BY MOUTH EVERY MORNING AND TAKE ONE TABLET BY MOUTH EVERY DAY BEFORE BEDTIME 180 Tablet 3 Cholestyramine 4 GM Oral Packet (Questran) DISSOLVE TWO PACKETS IN LIQUID AND TAKE BY MOUTH DAILY (Patient taking differently: Take 1 Packet by mouth every other day. DISSOLVE TWO PACKETS IN LIQUID AND TAKE BY MOUTH EVERY OTHER DAY) 180 Each 1 Atorvastatin Calcium 20 MG Oral Tablet (Lipitor) [...] 30 MINUTES AFTER TAKING 15 Tablet 3 Almotriptan Malate 12.5 MG Oral Tablet TAKE ONE TABLET BY MOUTH AT ONSET OF MIGRAINE. MAY REPEAT IN2 HOURS. MAX DOSE 2 TABLETS IN 24 HOURS 10 Tablet 3 traZODone HCl 150 MG Oral Tablet (Desyrel) TAKE ONE TABLET BY MOUTH AT BEDTIME 90 Tablet 3 Nurtec 75 MG Oral Tablet Disintegrating (Rimegepant Sulfate) 1 tab every other day for migraine prevention 15 Tablet 5 No current facility-administered medications for this visit. Review of patient's allergies indicates: Allergen Reactions Morphine And Related swelling Penicillins Rash as an adult 20+ yrs ago Sulfa Antibiotics Rash, 2009 Results for orders placed or performed in [...] [facility] 1.41 05/30/2022 10:23 AM TSH - [facility] 1.18 11/28/2019 02:06 PM TSH - [facility] [...] 14.0 >4.5 ng/mL No results found for: "AFTL99EMH1" No results found for: "TRKF11ZYY3" No results found for: "YQTPLKGG38BW" 25-Hydroxy Vitamin D (ng/mL) Date Value 05/30/2022 27 Vitamin D Level Interpretation deficient: <20 ng/ml insufficient: 20-30 ng/ml normal: 31-100 ng/ml REVIEW OF SYSTEMS: As above asthma dizzy spells 1 episode of positional dizziness while laying in bed accompanied by headache feeling fatigued trouble sleeping nasal congestion all others negative PHYSICAL EXAM: BP 116/66 | Pulse 82 | Temp 36.7 C (98.1 F) (Tympanic) | Resp 18 | Wt 77 kg (169lb 12.8 oz) | SpO2 95% | BMI 30.81 kg/m | BSA 1.84 m Well-developed female in no distress normal speech and language affect appropriate no carotid bruits no heart murmurs heart is regular rate and rhythm. Pupils are equal round reactive to light optic nerve normal on the right had difficulty visualizing on the left normal morse motility facial sensation and facial symmetry No temporal artery tenderness sinus tenderness her neck is supple. Normal bulk and tone full strength no drift normal rapid alternating movements symmetric reflexes downgoing toes. Jbrhrm-qh-ahxg rejy-ei-cipt normal sensation intact to vibration in the fingers and toes gait is orthopaedic IMPRESSION: Chronic daily migraine with a component of rebound related to analgesic overuse. Plan patient would like to try an oral CGRP inhibitor she will try Nurtec monitoring for muscle cramps constipation nausea. On a PRN basis she should minimize medicines to no more than 2 or 3 days a week. She is taking Axert. Other options could be an injectable CGRP inhibitor such as Emgality or Aimovig. New line family history of intracranial aneurysm patient last imaged in a proximally 2016 recommend MRA head. Clarisa Adair MD 04/03/2023 8:37 AM documented in this encounter Nursing Notes * Zenaida Decker LPN - 04/03/2023 7:42 AM EST Chief Complaint Patient presents with NEW PATIENT documented in this encounter Plan of Treatment Upcoming Encounters Date Type Department Care Team (Late st Contact Info) Description 06/12/2023 1:00 PM EST Office Visit Neurology [facility] [place] 200 [facility] [place] [address] Clarisa Adair MD 200 [facility] [place] [address] 09/05/2023 2:00 PM EDT Office Visit Cardiology [address] [place] [address] Surjit Zamarripa PA-C [address] [place] [address] 01/23/2024 1:40 PM EDT Office Visit Family Medicine [address] [place] [phone] George Cervantes MD [address] [place] [address] [place] [address] 02/19/2024 1:30 PM EDT Imaging Radiology [address] [place] [address] 03/25/2024 2:30 PM EST Nurse Only Ancillary [address] [place] [address] [place], Nurse Annual [address] [place] [address] Scheduled Procedures Name Priority Associated Diagnoses Date/Ti [...] Scan 08/25/2023 08/24/2021 CKD HGB USE SMARTSET [id number] 12/30/202312/29, 05/30/2022, 05/30/2022, Additional history exists CKD PHOS USE SMARTSET [id number] 02/08/2024 02/07/2023 Mammogram 02/14/2024 02/13/2023, 08, 01/06/2021, [...] D LEVEL ONCE IN A LIFETIME-USE SMARTSET# [id number] Completed 05/30/2022 Cologuard Discontinued 07/26/2022, 030 10/2022, [...] Not on filedocumented as of this encounter Procedures Procedure Name Priority Date/Time Associated Diagnosis Comments MRA HEAD WO CONTRAST Routine 04/17/2023 2:05 PM EST Family history of aneurysm documented in this encounter Results * MRA HEAD WO CONTRAST (04/17/2023 2:05 PM EST) Anatomical Region Laterality Modality Head Magnetic Resonan ce 04/18/2023 3:53 PM EST Impressions 04/18/2023 3:51 PM EST IMPRESSION No intracranial aneurysm, flow-limiting stenosis, or occlusion. 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 Narrative 04/18/2023 3:51 PM EST EXAM MRA HEAD WO CONTRAST-04/17/2023 2:05 pm HISTORY 68 y/o F, [facility] intracranial aneurysm COMPARISON MRA head 03/24/2016. TECHNIQUE 3D [id number]-pp-fhxusw MR angiography of the head was performed, generating 3D maximum intensity projection images. FINDINGS The visualized internal carotid arteries are patent to the carotid terminus bilaterally with normal course and caliber at the level of the skull base. The major branches of the seminole of Fuentes including the anterior, middle, and posterior cerebral arteries are patent, without flow-limiting stenosis or large vessel occlusion. The vertebrobasilar system is within normal limits. No aneurysm or arteriovenous malformation is identified. 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 Procedure Note Chuck Wang MD - 04/18/2023 EXAM MRA HEAD WO CONTRAST-04/17/2023 2:05 pm HISTORY 68 y/o F, [facility] intracranial aneurysm COMPARISON MRA head 03/24/2016. TECHNIQUE 3D [id number] MR angiography of the head was performed, generating 3Dmaximum intensity projection images. FINDINGS The visualized internal carotid arteries are patent to the carotidterminus bilaterally with normal course and caliber at the level of theskull base. The major branches of the seminole of Fuentes including the anterior, middle,and posterior cerebral arteries are patent, without flow-limiting stenosisor large vessel occlusion. The vertebrobasilar system is within normal limits. No aneurysm or arteriovenous malformation is identified. 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 IMPRESSION IMPRESSION No intracranial aneurysm, flow-limiting stenosis, or occlusion. 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 Clarisa Adair MD RAD MRI-MRA documented in this encounter Visit Diagnoses Diagnosis Family history of aneurysm- Primary Family history of other condition documented in this encounter Care Teams Weigher Operator Relationship Specialty Start Date End Date George Cervantes MD [address] [place] [address] [place] [phone] PCP - General Family Medicine 10/07/14 documented as of this encounter
--- OUTSIDE RECORDS SUMMARY | 2023-09-06 09:45 | External Medical Summary | Summary of Care ---
Author Name Unknown Organization [facility] Address [address] [place] [address] Phone [phone] Care Team Providers Care Respiratory Therapy Instructor Name Role Phone George Cervantes MD Primary Care Provide r Reason for Referral * Precert (Within 10 days (routine)) - Pending Review Specialty Diagnoses / Procedures Referred By Contac t Referred To Contact Radiology Diagnoses Family history of aneurysm Procedures MRA HEAD WO CONTRAST Clarisa Adair MD [facility] [address] Referral ID Status Reason Start Date Expiration Date V isits Requested Visits Authorized [id number] Pending Review 04/03/2023 999 999 Reason for Visit * Reason Comments NEW PATIENT * Evaluate & Treat - Unlimited Visits (Within 30 days (routine)) - Authorized Specialty Diagnoses / Procedures Referred By Contac t Referred To Contact Neurology Diagnoses Migraine without aura and without status migrainosus, not intractable George Cervantes MD [address] [place] [address] [place] [address] Referral ID Status Reason Start Date Expiration Date Visits Requested Visits Authorized [id number] Authorized Specialty Services Required 03/22/2023 999 999 Encounter Details Date Type Department Care Team (Late st Contact Info) Description 04/03/2023 8:00 AM EST Office Visit Neurology [place] [facility] 200 [facility] [place] [address] Clarisa Adair MD 200 [facility] [place] [address] Family history of aneurysm* Allergies Active Allergy Reactions Criticality Noted Date Comments Morphine And Related 02/19/2001 swelling Penicillins 02/19/2001 Rash as an adult 20+ yrs ago Sulfa Antibiotics 02/19/2001 Rash, 2010 documented as of this encounter (statuses as of 04/03/2023) Medications Medication Sig Dispensed Refills Start Date [...] as of this encounter (statuses as of 04/03/2023) Active Problems Problem Noted Date Diagnosed Date [...] as of this encounter (statuses as of 04/03/2023) Resolved Problems Problem Noted Date Diagnosed Date Resolved Date Chronic kidney disease, stage 3a 06/27/2022 02/07/2023 Overview: Per CKD protocol Abnormal PFT 12/25/2017 03/29/2019 Pulmonary hypertension 10/09/201401/10 Enthesopathy of hip 06/27/2003 03/07/20 17 ABNORMAL FINDINGS-BREAST 10/30/2002 Excessive menstruation 06/21/200204/29 Diarrhea 06/07/2016 documented as of this encounter (statuses as of 04/03/2023) Immunizations Name Administration Dates Next Due COVID-19 mRNA, LNP-s, No Pre serve, 2-Dose Series ([employer] 03/08/2021,07/25/2020,07/04/2020 H1N1 2009 Influenza, IM 05/15/2009 Pneumococcal [...] AM EST CLINIC NOTES Neurology [facility] [place] [address] [place] [address] Joana Ramirez : 1955 NEUROLOGY OUTPATIENT NOTE [...] performed by Daisy Rios DO at [facility] COLONOSCOPY, DIAGNOSTIC (RECTUM) 12/19/2022 biopsies show hyperplastic polyps/recall 5 years/COLONOSCOPY FLEXIBLE PROXIMAL DIAGNOSTIC performedby Ifeoma Peña MD at ENDOSCOPY [facility] EGD, FLEXIBLE, DIAGNOSTIC 10/02/2012 UPPER GI ENDOSCOPY DIAGNOSTIC performed by Daisy Rios DO at [facility] EGD, FLEXIBLE, DIAGNOSTIC 12/11/2019 gastritis/biopsies show inflammatory changes in stomach/ESOPHAGOGASTRODUODENOSCOPY (EGD), FLEXIBLE,TRANSORAL, DIAGNOSTIC performed by Daisy Rios DO at ENDOSCOPY [facility] EGD, FLEXIBLE, W/BIOPSY 01/09/2007 path-normal EGD, [...] Not on file Occupational History Occupation: nursing officer Employer: [employer] 452 Tobacco Use Smoking status: Never Smokeless [...] 14.0 >4.5 ng/mL No results found for: "[id number]" No results found for: "JJYK05DEX1" No results found for: "LASWCNRQ27GK" 25-Hydroxy Vitamin D (ng/mL) Date Value 05/30/2022 [...] rapid alternating movements symmetric reflexes downgoing toes. Dmsmnd-nd-qoka gods-gf-pqoe normal sensation intact to vibration in the [...] Description 04/17/2023 1:45 PM EST Imaging Radiology [address] [place] [phone] 04/17/2023 3:00 PM EST Office Visit Pharmacy, [address] [place] [address] [place] [address] 06/12/2023 1:00 PM EST Office Visit Neurology [facility] [address] [place] [address] Clarisa Adair MD [address] [place] [address] 09/05/2023 2:00 PM EDT Office Visit Cardiology [address] [place] [address] Surjit Zamarripa PA-C [address] [place] [address] 01/23/2024 1:40 PM EDT Office Visit Family Medicine [address] [place] [phone] George Cervantes MD [address] [place] [address] [place] [address] 02/19/2024 1:30 PM EDT Imaging Radiology [address] [place] [address] 03/25/2024 2:30 PM EST Nurse Only Ancillary [address] [place] [address] [place], Nurse Annual [address] [place] [address] Scheduled Orders Name Type Priority Associated Diagnoses Orde r Schedule MRA HEAD WO CONTRAST Medical Imaging Routine Family history of aneurysm Ordered: 04/03/2023 Scheduled Procedures Name Priority Associated Diagnoses Date/Ti [...] Scan 08/25/2023 08/24/2021 CKD HGB USE SMARTSET [id number] 12/30/202312/29, 05/30/2022, 05/30/2022, Additional history exists CKD PHOS USE SMARTSET [id number] 02/08/2024 02/07/2023 Mammogram 02/14/2024 02/13/2023, 12/15, 01/06/2021, [...] D LEVEL ONCE IN A LIFETIME-USE SMARTSET# [id number] Completed 05/30/2022 Cologuard Discontinued 07/26/2022, 03/0 10/2022, [...] condition documented in this encounter Care Teams Respiratory Therapy Instructor Relationship Specialty Start Date End Date George Cervantes MD [address] [place] [address] [place] [phone] PCP - General Family Medicine 10/07/14 documented as of this encounter
--- OUTSIDE RECORDS SUMMARY | 2023-09-06 09:45 | External Medical Summary | Summary of Care ---
Author Name Unknown Organization [facility] Address [address] [place] [address] Phone [phone] Care Team Providers Care Hospice Clinical Manager Name Role Phone George Cervantes MD Primary Care Provide r Reason for Referral * Evaluate & Treat - Unlimited Visits (Within 30 days (routine)) - Authorized Specialty Diagnoses / Procedures Referred By Contac t Referred To Contact Neurology Diagnoses Migraine without aura and without status migrainosus, not intractable George Cervantes MD [address] [place] [address] [place] [id number] Referral ID Status Reason Start Date Expiration Date Visits Requested Visits Authorized [id number] Authorized Specialty Services Required 03/22/[phone] Question Answer Referral Priority Within 30 days (routine) Where should this appointment be scheduled? [facility] REFERRAL QUESTIONS Headache Has the patient tried 1 abortive and 1 preventative medication? Yes Comments Patient has not been seen since 2019 , MTM referral placed also. * Evaluate & Treat - Unlimited Visits (Within 30 days (routine)) - Authorized Specialty Diagnoses / Procedures Referred By Contac t Referred To Contact Pharmacist / Pharmacy Diagnoses Migraine without aura and without status migrainosus, not intractable George Cervantes MD [address] [place] [address] [place] [id number] Referral ID Status Reason Start Date Expiration Date Visits Requested Visits Authorized [id number] Authorized Specialty Services Required 03/22/2023 99 99 Question Answer Referral Priority Within 30 days (routine) Where should this appointment be scheduled? [facility] Department: Primary Care Reason for Referral: Migraine Comments Pharmacist Medication Therapy Management: Minimum frequency patient should be seen in person for medication management: as appropriate per clinical condition and patient status By my signature, I understand that my patient Joana Ramirez will have her medication therapy managed by the [facility] Med[facility] ([facility]) per established policies, procedures, and protocols. I also certify that this referral may serve as an initiation of service for the management of drug therapy in the above noted patient. [facility] providers will be responsible for scheduling patient visits, obtaining appropriate laboratory studies, and adjusting medication management therapy per patient's need, in addition to those roles spelled out in the clinic policy, procedures, and drug management protocols. I understand that the service provided by the [facility] Clinic is voluntary and have informed patient that they can refuse the service at their discretion. I am aware that the [facility] will provide me with a copy of the patient encounter via my [employer]. I authorize the [facility] to carry out these activities on my behalf. I consider this program to be a necessary part of the patient's medical care. Patient has had migraines for >50yrs and on meds, but still struggles with migraines mthly if not every day of some mths. Patient has seen neurology in the past but does not have an appointment scheduled. Last seen prior to [facility]. Rosita Doshi RN Encounter Details Date Type Department Care Team (Late st Contact Info) Description 03/22/2023 2:30 PM EST Nurse Only Ancillary [address] [place] [id number] [place] Nurse [address] [place] [id number] Allergies Active Allergy Reactions Criticality Noted Date Comments Morphine And Related 02/19/2001 swelling Penicillins 02/19/2001 Rash as an adult 20+ yrs ago Sulfa Antibiotics 02/19/2001 Rash, 2010 documented as of this encounter (statuses as of 03/22/2023) Medications Medication Sig Dispensed Refills Start Date [...] MOUTH EVERY OTHER DAY, Reported on 12/14/2022 traZODone HCl 150 MG Oral Tablet (Desyrel)Indications :Persistent insomnia TAKE ONE TABLET BY MOUTH AT BEDTIME 90 Tablet 3 2022 3 Active Atorvastatin Calcium 20 MG Oral Tablet (Lipitor)Indications :Hyperlipidemia with target LDL less than 100 Take by mouth 1 Tablet in the morning. 100 Tablet 3 11/21/2022 Active Almotriptan Malate 12.5 MG Oral Tablet TAKE ONE TABLET BY MOUTH AT ONSET OF MIGRAINE. MAY REPEAT IN 2 HOURS. MAX DOSE 2 TABLETS IN 24 HOURS 10 Tablet 2 12/17/2022 4 Active Pregabalin 50 MG Oral Capsule (Lyrica)Indications: Fibromyalgia TAKE ONE CAPSULE BY MOUTH EVERY MORNING AND ONE CAPSULE BEFORE BEDTIME 180 Capsule 1 02/14/2023 4 Active Alendronate Sodium 70 MG Oral Tablet (Fosamax) TAKE 1 TABLET BY MOUTH ONCE A WEEK AT LEAST 30 MINUTES BEFORE FIRST FOOD/BEVERAGE DO NOT LIE DOWN FOR 30 MINUTES AFTER TAKING 15 Tablet 3 02/17/2023 Active documented as of this encounter (statuses as of 03/22/2023) Active Problems Problem Noted Date Diagnosed Date [...] as of this encounter (statuses as of 03/22/2023) Resolved Problems Problem Noted Date Diagnosed Date Resolved Date Chronic kidney disease, stage 3a 06/27/2022 02/07/2023 Overview: Per CKD protocol Abnormal PFT 12/25/2017 03/29/2019 Pulmonary hypertension 10/09/201401/10 Enthesopathy of hip 06/27/2003 03/07/20 ABNORMAL FINDINGS-BREAST 10/30/2002 Excessive menstruation 06/21/200204/29 Diarrhea 06/07/2016 documented as of this encounter (statuses as of 03/22/2023) Immunizations Name Administration Dates Next Due COVID-19 [...] Not Answered Alcohol Use Standard Drinks/Week Comments Yes 0 (1 standard drink = 0.6 oz [...] Sign Reading Time Taken Comments Blood Pressure 118/70 03/22/2023 2:44 PM EST Pulse 92 03/22/2023 2:44 PM EST Temperature 36.5 C (97.7 F) 03/22/2023 2:44 PM ES T Respiratory Rate - - Oxygen Saturation 95% 03/22/2023 2:44 PM EST Inhaled Oxygen Concentration - - Weight 77.8 kg (171 lb 9.6 oz) 03/22/2023 2:44 P M EST Height 158.1 cm (5' 2.25") 03/22/2023 2:44 PM ES T Body Mass Index 31.13 03/22/2023 2:44 PM EST documented in this encounter Patient Instructions * Patient Instructions* Rosita Doshi RN - 03/22/2023 2:57 PM EST Patient Instructions - Fall Prevention (This education is for all patients over 65 regardless of symptoms) Remember to take your current medications as prescribed. In order to prevent falls, you are encouraged to: Exercise Utilize assistive/adaptive devices Avoid multifocal lenses when walking Avoid hazards in home Maintain a regular toileting schedule Any questions please contact our office. Preventing Falls in the Home (This education is for all patients over 65 regardless of symptoms) As you get older, falls are more likely. Thats because your reaction time slows. Your muscles and joints may also get stiffer, making them less flexible. Illness, medications, and vision changes can also affect your balance. A fall could leave you unable to live on your own. To make your home safer, follow these tips: Floors Put nonskid pads under area rugs Remove throw rugs Replace worn floor coverings Tack carpets firmly to each step on carpeted stairs. Put nonskid strips on the edges of uncarpeted stairs Keep floors and stairs free of clutter and cords Arrange furniture so there are clear pathways Clean up any spills right away Bathrooms Install grab bars in the tub or shower Apply nonskid strips or put a nonskid rubber mat in the tub or shower Sit on a bath chair to bathe Use bathmats with nonskid backing Lighting Keep a flashlight in each room Put a nightlight along the pathway between the bedroom and the bathroom [employer] Patient Education Copyright 2008 - 2010 Valerie except where otherwise noted Preventing Falls: Exercises to Improve Balance, Flexibility, Strength, and Staying Power (This education is for all patients over 65 regardless of symptoms) Certain types of exercises may help make you less likely to fall. Try the ones below. Or do other exercises that your healthcare provider suggests. Depending on your health, you may need to start slowly. Dont let that stop you. Even small amounts of exercise can help you. Be sure to talk to yourhealthcare provider before starting any exercise program. Improve Balance Many types of exercise can help improve balance. Ayaan chi and yoga are good examples. Heres another one to try. You can do it anytime and almost anywhere. Stand next to a counter or solid support. Push yourself up onto your tiptoes. Hold for 5 seconds. If you start to lose your balance, hold on to the counter. Rest and repeat 5 times. Work up to holding for 20 to 30 seconds, if you can. Increase Flexibility Being more flexible makes it easier for you to move around safely. Try exercises like the seated hamstring stretch. Sit in a chair and put one foot on a stool. Straighten your leg and reach with both hands down either side of your leg. Reach as far down your leg as you can. Hold for about 20 seconds. Go back to the starting position. Then repeat 5 times. Switch legs. Build Strength Resistance exercises help build strength. You can do them without equipment. Or you can use weights, elastic bands, or special machines. One such exercise is called the biceps curl. You can hold a 1 pound weight or even a can of soup. Do this exercise at least 3 times a week. Strive for everyday. Sit up straight in a chair. Keep your elbow close to your body and your wrist straight. Bend your arm, moving your hand up to your shoulder. Then slowly lower your arm. Repeat 5 times. Switch to the other arm. Build Your Staying Power Aerobic exercises make your heart and lungs stronger so you can keep moving longer. Walking and swimming are two of the best types of exercises you can do. Using a stationary bike is great, too. Find an aerobic exercise that you enjoy. Start slowly and build up. Even 5 minutes is helpful. Aimfor a goal of 30 minutes, at least 3 times a week. You dont have to do 30 minutes in one session. Break it up and walk a little throughout the day. More Helpful Tips Start easy. Slowly work up to doing more. Talk with your healthcare provider about the best exercises for you. Call senior centers or health clubs about exercise programs. If needed, have a family member watch you walk every so often to check your stability. Exercise with a friend. Choose an activity you both enjoy. Try exercises that you can do anytime, anywhere. Here are two examples. Have someone with you when you first try these: Practice walking by placing one foot right in front of the other. Stand up and sit down 10 times. Repeat this throughout the day. Valerie Patient Education Copyright 2008 - 2010 Valerie except where otherwise noted. Preventing Falls: Moving Safely Using a Cane or Walker (This education is for all patients over 65 regardless of symptoms) Keep the cane away from your feet so you dont trip. A walking aid, such as a cane or walker, can help you stay more independent and avoid falls. Remember to keep your walking aid within easy reach when youre in a chair or in bed. And learn how to use it safely so you dont injure yourself. Using a Cane If you have a stronger side, hold the cane on that side. Get your balance. Move the cane and your weaker leg forward. Support your weight on both the cane and your weaker side. Step with your stronger leg. Start again from step 1. If youre using a folding walker, be sure you know how to lock it open. Check that its locked open before each use. Using a Walker Roll the walker (or lift it, if youre using one without wheels) forward about 12 inches. Step forward with your weaker leg first. Use the walker to help keep your balance. Bring your other foot forward to the center of the walker. Start again from step 1. Helpful Tips Check with your healthcare provider about the right walking aid to use. Ask about a walker with a seat attached. Check the tips of your cane or walker to make sure they have nonskid covers. Move slowly from room to room. Dont collins. Sit down to get dressed. Use a jose alfredo pack or backpack to keep your hands free. Get help for jobs that mean climbing, even on a stepstool. [employer] Patient Education Copyright 2008 - 2010 Valerie except where otherwise noted. Urinary Incontinence Plan of Care Documentation: (This education is for all patients over 65 regardless of symptoms) Current medications reconciled. Patient encouraged to: Practice kegal exercises Provide education materials Use the restroom every 2 hours throughout the day Limit caffeine, alcohol, spicy foods and acidic foods Keep a bladder diary Limit fluid intake 3-4 hours before bed Lose weight Prevent constipation Take fluid pills at a time when you can get to the bathroom quickly Control sugar better if diabetic Limit fluid intake to 60 oz. per day Wear support stockings (TEDs)if you have edema Rosita Doshi RN 03/22/2023 Kegel Exercises Kegel exercises dont require special clothing or equipment. Theyre easy to learn and simple to do. And if you do them right, no one can tell youre doing them, so they can be done almost anywhere. Your doctor, nurse, or physical therapist can answer any questions you have and help you get started. A Weak Pelvic Floor The pelvic floor muscles may weaken due to aging, and vaginal childbirth, injury, surgery, chronic cough, or lack of exercise. If the pelvic floor is weak, your bladder and other pelvic organs may sag out of place. The urethra may also open too easily and allow urine to leak out. Kegel exercises can help you strengthen your pelvic floor muscles so they can better support the pelvic organs and control urine flow. How Kegel Exercises Are Done Try each of the Kegel exercises described below. When youre doing them, try not to move your leg, buttock, or stomach muscles. While youre urinating, try to stop the flow of urine. Start and stop it as often as you can. Contract as if you were stopping your urine stream, but do it when youre not urinating. Tighten your rectum as if trying not to pass gas. Contract your anus, but dont move your buttocks. Helpful Hints Do your Kegels as often as you can. The more you do them, the faster youll feel the results. Pick an activity you do often as a reminder. For instance, do your Kegels every time you sit down. Tighten your pelvic floor before you sneeze, get up from a chair, cough, laugh, or lift. This protects your pelvic floor from injury and can help prevent urine leakage. Try to hold each Kegel for a slow count to five. You probably wont be able to hold them for thatlong at first, but keep practicing. It will get easier as your pelvic floor gets stronger. Eventually, special weights that you place in your vagina may be recommended to help make your Kegels even more effective. Valerie Patient Education Copyright 2008 - 2010 Valerie except where otherwise noted. Here are some helpful tips for your urinary incontinence: (This education is for all patients over 65 regardless of symptoms) Practice Kegel exercises Use the restroom every 2 hours throughout the day Limit caffeine, alcohol, spicy foods, and acidic foods Keep a bladder diary Limit fluid intake 3-4 hours before bed Lose weight Prevent constipation Take fluid pills at a time when can get to the bathroom quickly Control sugar better if diabetic Limit fluid intake to 60 oz. per day Any questions, please feel free to contact our office. Hi Ms. Ramirez, As your primary care physician, I know that regular visits with my patients who have several chronic conditions can go a long way in helping you stay healthy. Many times, the clinic team and I are in touch with you and/or other care team members between office visits to adjust medications, discuss any changes in your health, and review our care plan to make sure it is still meeting your needs. I am dedicated to helping you take a more active role in your overall care. It is important that there are resources available to you, so I created a personalized plan of care with a Health Calendar for you, which is included on the next page of this letter. Below is a list that summarizes your electronic health record: Health Maintenance Due: Health Maintenance Due Topic Date Due DTaP,Tdap,and Td Vaccines (2 - Td or Tdap) 07/14/2018 Depression Screening 12/02/2020 COVID-19 Vaccine ( season) 2023 Albumin/Creatinine Ratio 05/30/2023 Current Medication List: (as of Visit date not found (in office), Visit date not found (telemedicine) ) Current Outpatient Medications Medication Sig Dispense Refill ASPIRIN 81 MG OR TBEC Take by mouth. 30 0 Diclofenac Sodium 1 % gel place 2gm topically on the skin 2 times a day to the affected area asdirected 100 g 5 Omeprazole 40 MG Oral [...] MOUTH EVERY OTHER DAY) 180 Each 1 traZODone HCl 150 MG Oral Tablet (Desyrel) TAKE ONE TABLET BY MOUTH AT BEDTIME 90 Tablet 3 Atorvastatin Calcium 20 MG Oral Tablet (Lipitor) Take by mouth 1 Tablet in the morning. 100 Tablet 3 Almotriptan Malate 12.5 MG Oral Tablet TAKE ONE TABLET BY MOUTH AT ONSET OF MIGRAINE. MAY REPEAT IN 2 HOURS. MAX DOSE 2 TABLETS IN 24 HOURS 10 Tablet 2 Pregabalin 50 MG Oral Capsule (Lyrica) TAKE ONE CAPSULE BY MOUTH EVERY MORNING AND ONE CAPSULE BEFORE BEDTIME 180 Capsule 1 Alendronate Sodium 70 MG Oral Tablet (Fosamax) TAKE 1 TABLET BY MOUTH ONCE A WEEK AT LEAST 30 MINUTES BEFORE FIRST FOOD/BEVERAGE DO NOT LIE DOWN FOR 30 MINUTES AFTER TAKING 15 Tablet 3 No current facility-administered medications for this visit. Current List of Allergies: (as of Visit date not found (in office), Visit date not found (telemedicine) ) Review of patient's allergies indicates: Allergen Reactions Morphine And Related swelling Penicillins Rash as an adult 20+ yrs ago Sulfa Antibiotics Rash, 2009 Most Recent Lab Results: Results for orders placed or performed in visit on 02/07/23 HEMOGLOBIN A1C Result Value Ref Range Hemoglobin A1C 5.5 4.0 - 5.6 % Estimated Average Glucose 111 <126 mg/dL BASIC METABOLIC PANEL Result Value Ref Range [...] mg/dL Calcium 9.8 8.4 - 10.2 mg/dL MAGNESIUM Result Value Ref Range Magnesium 2.4 1.5 - 2.6 mg/dL *Note: Due to a large number of results and/or encounters for the requested time period, some results have not been displayed. A complete set of results can be found in Results Review. Sincerely, George Cervantes MD 03/22/2023 [facility] Calendar (as of Visit date not found (in office), Visit date not found (telemedicine) ) Care needs Care needs Last completed Due next Diphtheria, tetanus & pertussis vaccines (2 - Td or Tdap) 07/14/2008 07/14/2018 COVID-19 Vaccine ( season) 2021 01/13/2023 Urine albumin/creatinine test 05/30/2022 05/30/2023 Kidney Function Test 02/07/2023 08/08/2023 Bone Density 08/24/2021 08/25/2023 Mammogram 02/13/2023 02/14/2024 Diabetes Screening 02/07/2023 02/07/2026 Colonoscopy - every 5 years 12/19/2022 12/20/2027 Lipid (cholesterol) disorder screening 12/29/2022 12/30/2027 As you look over the recommended services, be sure to check with your insurance company to determine what's covered. [employer] is a great tool that helps you review your medical record online, including test results, doctor notes and your health summary. You can also schedule appointments with me and other members of your care team, request prescription refills and ask for advice related to your medical conditions at [email or web address]. documented in this encounter Progress Notes * Rosita Doshi RN - 03/22/2023 3:10 PM EST AD8 Dementia Screening Interview Person answering questions: patient Remember, "Yes, a change" indicates that there has been a change in the last several years caused by cognitive (thinking and memory) problems 1. Problems with judgement (eg: problems making decisions, bad financial decisions, problems with thinking). No (0) 2. Less interest in hobbies/activities. No (0) 3. Repeats the same things over and over (questions, stories, or statements). No (0) 4. Trouble learning how to use a tool, appliance, or gadget (eg: VCR, computer, microwave, remote control). No (0) 5. Forgets correct month or year. No (0) 6. Trouble handling complicated financial affairs (eg: balancing checkbook, income taxes, paying bills). No (0) 7. Trouble remembering appointments. No (0) 8. Daily problems with thinking and/or memory. Yes (1) TOTAL AD8: 1 - AD8 Dementia Screening Score The final score is a sum of the number items marked "Yes, A Change". 0 - 1: Normal cognition; 2 or greater: Cognitive impairments is likely to be present - further testing required Adult Annual Wellness Visit: Joana Ramirez is a 68 year old female who presents for an Adult Annual Wellness Visit. Depression Screening: Did the patient complete the screening questionnaire for Depression? Yes Is the patient's total score for Depression 15 or greater? No, no further intervention needed, unless requested by patient. Did the patient answer positively to the suicide question? No, no further intervention needed, unless requested by patient. In general, compared to other people your age, what would you say that your health is? Fair Ht Readings from Last 1 Encounters: 03/22/23 1.581 m (5' 2.25") Wt Readings from Last 1 Encounters: 03/22/23 77.8 kg (171 lb 9.6 oz) Body Mass Index: BMI Greater than 30 Body mass index is 31.13 kg/m. BP Readings from Last 1 Encounters: 03/22/23 118/70 Medical/Surgical/Family History Reviewed: Yes Past Medical History: Diagnosis Date Diarrhea since cholecystectomy Fibromyalgia 10/13/2011 Generalized osteoarthritis Idiopathic scoliosis Irritable bowel syndrome with diarrhea 09/12/2017 Migraine without aura Mild aortic regurgitation 05/31/2016 Mild persistent asthma without complication 07/10/2018 Moderate mitral regurgitation 05/31/2016 Persistent insomnia 06/21/2002 Reflux esophagitis Renal artery aneurysm (HCC) 10/30/2017 Past Surgical History: Procedure Laterality Date COLONOSCOPY 10/18/2005 Dr. Peterson COLONOSCOPY, DIAGNOSTIC (RECTUM) 10/02/2012 COLONOSCOPY FLEXIBLE PROXIMAL DIAGNOSTIC performed by Daisy Rios DO at END[facility]COPY [facility] COLONOSCOPY, DIAGNOSTIC (RECTUM) 12/19/2022 biopsies show hyperplastic polyps/recall 5 years/COLONOSCOPY FLEXIBLE PROXIMAL DIAGNOSTIC performedby Ifeoma Peña MD at ENDOSCOPY [facility] EGD, FLEXIBLE, DIAGNOSTIC 10/02/2012 UPPER GI ENDOSCOPY DIAGNOSTIC performed by Daisy Rios DO at ENDOSCOPY [facility] EGD, FLEXIBLE, DIAGNOSTIC 12/11/2019 gastritis/biopsies show inflammatory changes in stomach/ESOPHAGOGASTRODUODENOSCOPY (EGD), FLEXIBLE,TRANSORAL, DIAGNOSTIC performed by Daisy Rios DO at ENDOSCOPY [facility] EGD, FLEXIBLE, W/BIOPSY 01/09/2007 path-normal EGD, W/ENDOSCOPIC US 11/27/2008 LAPAROSCOPY; CHOLECYSTECTOMY 06/06/1995 MAMMOGRAM SCREENING BILATERAL Bilateral 11/09/2016 scattered fibroglandular densities category 1 normal REMOVAL OF OVARY/OVIDUCT(S) 08/06/2003 bilateral TOTAL ABD HYSTERECTOMY W/WO REMOVAL OF TUBE(S) 08/06/2003 Dr. Nguyen - fibroids US ABDOMEN COMPLETE 09/07/2021 cholecystecomy, fatty liver, nonobstruction right renal stone Family History Problem Relation Age of Onset Hypertension Mother Breast Cancer Grandmother (Maternal) Diabetes Grandmother (Maternal) Glaucoma Son 45 Diabetes Aunt (Unspecified) Has patient ever had cancer? No Social History Tobacco Use Smoking status: Never Smokeless tobacco: Never Substance Use Topics Alcohol use: Yes Comment: rarely Vaping/E-Cigarette Use Vaping/E-Cigarette Use Never User Vaping/E-Cigarette Substances Vaping/E-Cigarette Devices Tobacco/Alcohol screening completed today? Yes Hospital Care: Admissions (within the last year): Not Applicable ER within 30 days: No Does the patient have an Advance Directives/Living Will? No. Does the patient want information? Yes. Information given to patient Last Physical Exam: Last physical exam: 02.07.23 Does patient see primary provider regularly? Yes Does patient see other providers? Yes, Specialist Patient Care Team updated? Yes Review of patient's allergies indicates: Allergen Reactions Morphine And Related swelling Penicillins Rash as an adult 20+ yrs ago Sulfa Antibiotics Rash, 2009 Immunization History Administered Date(s) Administered COVID-19 mRNA, LNP-s, No Preserve, 2-Dose Series (Blackbook[employer]) 07/04/2020, 07/25/2020, 03/08/2021 H1N1 2009 Influenza, IM 05/15/2009 Pneumococcal Conjugate Vacc, 13 Valent (Prevnar) 12/03/2019 Pneumococcal Polysaccharide PPV23 (Pneumovax) 10/07/2014, 01/12/2022 SEASONAL INFLUENZA, PF, 6 M & Above, IM , (FLULAVAL or FLUZONE) 01/27/2017, 01/16/2018 Season Influenza, Quad, PF, Adjuvanted, 65+ Yrs, IM (FLUAD) 01/09/2020, 04/01/2021 Seasonal Influenza, Quadrivalent Hd (Fluzone Hd) 02/07/2023 Seasonal Influenza, Quadrivalent Hd, 65+ Yrs 01/09/2020 Seasonal Influenza, Quadrivalent, No Preserve, IM 02/26/2016, 01/31/2018 Seasonal Influenza, Split, IIV3, With Preserve, Inj 02/12/2006, 03/29/2007, 02/26/2009, 05/17/2012,03/15/2013, 04/17/2014, 02/12/2015 Seasonal Influenza, Trivalent, Adjuvanted, 65+ yrs 02/12/2019 TD - Tetanus/Diptheria (ADULT) 11/19/1991 TDAP (age 11 and older)(Adacel) 07/14/2008 Varicella Zoster Vaccine (Adult) 11/26/2015 Zoster Vaccine Recombinant (Shingrix) 01/09/2020, 04/01/2020 Current Outpatient Medications Medication Sig Dispense Refill [...] MOUTH EVERY OTHER DAY) 180 Each 1 traZODone HCl 150 MG Oral Tablet (Desyrel) TAKE ONE TABLET BY MOUTH AT BEDTIME 90 Tablet 3 Atorvastatin Calcium 20 MG Oral Tablet (Lipitor) Take by mouth 1 Tablet in the morning. 100 Tablet 3 Almotriptan Malate 12.5 MG Oral Tablet TAKE ONE TABLET BY MOUTH AT ONSET OF MIGRAINE. MAY REPEAT IN2 HOURS. MAX DOSE 2 TABLETS IN 24 HOURS 10 Tablet 2 Pregabalin 50 MG Oral Capsule (Lyrica) TAKE ONE CAPSULE BY MOUTH EVERY MORNING AND ONE CAPSULE BEFORE BEDTIME 180 Capsule 1 Alendronate Sodium 70 MG Oral Tablet (Fosamax) TAKE 1 TABLET BY MOUTH ONCE A WEEK AT LEAST 30 MINUTES BEFORE FIRST FOOD/BEVERAGE DO NOT LIE DOWN FOR 30 MINUTES AFTER TAKING 15 Tablet 3 No current facility-administered medications for this visit. Patient Active Problem List Diagnosis Code Migraine [...] Age-related osteoporosis without current pathological fracture M81.0 Medication Compliance: Patient is able to obtain all of her medications? Yes Patient takes medications as prescribed? Yes Patient manages own medications: Yes Patient uses a pill box? No Dental Exam: will give list of dentist Eye Screening: Yes: Every yearly [facility] Are you having trouble with hearing? No Do you use an assistive device to help your hearing? No Exercise Screening: does not exercise regularly, walk daily. Nutrition Assessment: breakfast and lunch and snacks. Pain Screening: Are you having any pain? Yes. Pain Scale: 5 out of 10; leg and lower back pain, patient states at times its a 10. Sleep Screening Tool 'STOP': Do you snore? Yes Do you feel fatigued during the day? Yes Do you wake up feeling like you haven't slept? Yes Have you been told you stop breathing at night? No Do you gasp for air or choke while sleeping? No Have you been told you have Sleep Apnea? No Do you have high blood pressure or are on medication(s) to control high blood pressure? Yes SCORE: If you check YES to two or more questions, make a referral for Obstructive Sleep Apnea Patient is working on sched after the new year. Patient and Caregiver Support System: Patient lives with a spouse Means of Transportation: Drives. Concerns identified are: night or distance Patient lives in One Story - with basement but outside entrance only: one to get into house Community Resources: dough,Datalot, and 20$ of food stampUrgentRx. Functional Status and ADL Skills: Has patient ever had an amputation? No Functional Assessment: 90- Able to carry on normal activity, minor symptoms of disease Ambulation: Patient ambulates with assistive device. Cane Dressing: Gets clothes and dresses without any assistance: Independent Able to move freely in chair or bed including turning over: Independent Repositioning (bed or chair): Not applicable Transfers: Independent Toileting: Goes to bathroom, uses toilet, arranges clothes and returns without any assistance: Independent Toileting: continent of bladder and continent of bowel Feeding: Self Bathing: Self; tub and shower, encourage grab bars Requires minimal assistance with ADLs. Instrumental ADL's: Shopping: Minimal Assistance Housekeeping: Minimal Assistance Handling Finances: Minimal Assistance DME Vendor Name: Not Applicable Fall Risk Assessment: Can the patient demonstrate that she can stand from a sitting position? Yes Has the patient had a fall within the last 6 months? No Does the patient have a problem with her gait or balance? Yes Does the patient take 4 or more prescription medicines? Yes Does the patient use sedatives or narcotics? No Fall Risk Factors Present: Uses more than 4 medications Uses assistive devices Balance or gait disturbances Lower extremity weakness Visually impaired Older than age 70 Xgf-Dn-jir-Go Test: Time began at 300. Patient stood from sitting position and walked approximately 10 feet, returned and sat down. Total time for rvr-ym-yzz-go test was 10 seconds. Yoc-Pp-tkt-Go Test completed? Yes Gender Specific Preventative Plan: Health Maintenance Topic Date Due DTaP,Tdap,and Td Vaccines (2 - Td or Tdap) 07/14/2018 Depression Screening 12/02/2020 COVID-19 Vaccine ( - 2022- season) 2023 Albumin/Creatinine Ratio 05/30/2023 GFR 08/08/2023 DXA Scan 08/25/2023 CKD HGB USE SMARTSET 38213 12/30/2023 CKD PHOS USE SMARTSET [id number] 02/08/2024 Mammogram 02/14/2024 Diabetes Screening 02/07/2026 COLONOSCOPY-EVERY 5 YRS AGES 18-100 12/20/2027 Lipid Panel 12/30/2027 VITAMIN D LEVEL ONCE IN A LIFETIME-USE SMARTSET# [id number] Completed Influenza Vaccine (FLU shot) Completed Zoster Vaccines Completed Pneumococcal Vaccine: 65+ Years Completed Hepatitis B Aged Out MENINGOCOCCAL (MENACTRA/MENVEO) Aged Out GARDASIL-HPV IMMUNIZATION SERIES Aged Out Colorectal Cancer Screening Discontinued Follow Up/ Referrals/Handouts: Depression screening - completed Functional assessment - doing well, but complain of leg and back pain Falls Risk screening - discussed, encouraged grab bars in bathroom Exercise screening -encouraged to stay active Nutrition assessment -. Education Provided and Handouts Provided Pain screening - discussed Incontinence screening - declines any referral Patient has been verbally educated on the need or importance of Breast Cancer Screening, Cholesterol, Colon Cancer Screening, GFR, Hemoglobin A1c, and Immunizations: flu,covid,shingrix Pt has completed the covid vaccines: Yes, patient states she got her latest one done at [facility]. I will have to call for it. Routine general medical examination at a health care facility (Primary) Risk and functional assessment Migraine without aura and without status migrainosus, not intractable - PHARMACIST MEDS THERAPY MGMT REFERRAL OP - NEUROLOGY REFERRAL OP - patient states she has had migraines for >50yrs, sees neuology and is interested in the new [facility] Age-related osteoporosis without current pathological fracture - Med reconciliation completed and compliance discussed. - pt to continue present medications. Dyslipidemia, goal LDL below 100 - Med reconciliation completed and compliance discussed. - pt to continue present medications. Fibromyalgia - Med reconciliation completed and compliance discussed. - pt to continue present medications. HTN, goal below 140/90 - Med reconciliation completed and compliance discussed. - pt to continue present medications. BP Readings from Last 3 Encounters: 03/22/23 118/70 03/01/23 124/78 02/07/23 120/78 Hypertensive kidney disease with stage 3a chronic kidney disease (HCC) Component Latest Ref Rng 02/07/2023 BUN 6 - 20 mg/dL 18 Creatinine 0.5 - 1.0 mg/dL 1.0 Estimated Glomerular Filtration Rate >=60 mL/min 61 Major depressive disorder, single episode, mild (HCC) - Med reconciliation completed and compliance discussed. - pt to continue present medications. Mild persistent asthma without complication - Med reconciliation completed and compliance discussed. - pt to continue present medications. Persistent insomnia - Med reconciliation completed and compliance discussed. - pt to continue present medications. Reflux esophagitis - Med reconciliation completed and compliance discussed. - pt to continue present medications. Sleep disorder - patient is in the process of scheduling a sleep study after the new year. Follow Up: Return in 1 year (on 03/22/2024) for 12 month Subsequent Adult Wellness Visit. | For: 12 month Subsequent Adult Wellness Visit | Check-out note: 12 month Subsequent Adult Wellness Visit Would patient like to schedule next AWV visit? Yes Rosita Doshi RN documented in this encounter Miscellaneous Notes * Pt Handout (on AVS) - Rosita Doshi RN - 03/22/2023 3:36 PM EST Images from the original note were not included. 22333 Preventing Osteoporosis: Meeting Your Calcium Needs Your body needs calcium to build and repair bones. But it can't make calcium on its own. That's whyit's important to eat calcium-rich foods. Some foods are naturally rich in calcium. Others have calcium added (fortified). It's best to get calcium from the foods you eat. But if you can't get enough, you may want to take calcium supplements. To meet your daily calcium needs, try the foods listed below. Dairy Fish & beans Other sources Source Calcium (mg) per serving Source Calcium (mg) per serving Source Calcium (mg) per serving Low-fat yogurt, plain 415 mg/8 oz. Sardines, [place], canned, with bones 351 mg/3 oz. Oatmeal, instant, fortified 215 mg/1 cup Nonfat milk 302 mg/1 cup [place], sockeye, canned, with bones 239 mg/3 oz. Tofu made with calcium sulfate 204 mg/3 oz. Low-fat milk 297 mg/1 cup Soybeans, fresh, boiled 131 mg/1/2 cup Collards 179 mg/1/2 cup Egyptian cheese 272 mg/1 oz. White beans, cooked 81 mg/1/2 cup Syrian muffin, whole wheat 175 mg/1 muffin Cheddar cheese 205 mg/1 oz. [place] beans, cooked 79 mg/1/2 cup Kale 90 mg/1/2 cup Ice cream strawberry 79 mg/1/2 cup [place], navel 56 mg/1 medium Note: Calcium levels may vary depending on brand and size. Daily calcium needs 14 to 18 years old: 1,300 mg 19 to 30 years old: 1,000 mg 31 to 50 years old: 1,000 mg 51 to 70 years old, women: 1,200 mg 51 to 70 years old, men: 1,000 mg or nursin to 18 years old: 1,300 mg, 19 to 50 years old: 1,000 mg Older than 70 (women and men): 1,200 mg Last Reviewed Date: 03/15/202119999710-1690 [employer]. All rights reserved. This information is not intended as a substitute for professional medical care. Always follow your healthcare professional's instructions. * Pt Handout (on AVS) - Rosita Doshi RN - 03/22/2023 3:36 PM EST Images from the original note were not included. 10259 Understanding Carbohydrates A car needs the right type of fuel to run. And you need the right kind of food to function. To keepyour energy level up, your body needs food that has carbohydrates (carbs). But carbs raise blood sugar levels higher and faster than other kinds of food. Your dietitian will work with you to figure out the amount of carbs you need. Carbs come in 3 types: starches, sugars, and fiber. Starches Starches are found in grains, some vegetables, and beans. Grain products include bread, pasta, cereal, and tortillas. Starchy vegetables include potatoes, peas, corn, page beans, yams, and squash. Kidney beans, stephens beans, black beans, garbanzo beans, and lentils also have starches. Sugars Sugars are found naturally in many foods. Or they can be added. Foods that contain natural sugar include fruits and fruit juices, dairy products, honey, and molasses. Added sugars are found in most desserts, processed foods, candy, regular soda, and fruit drinks. These are very helpful to treat lowblood sugar (hypoglycemia). They give you sugar quickly. Try to keep at least 15 to 20 grams of these simple sugars with you at all times. Eat or drink these if you start to have symptoms of low blood sugar. Fiber Fiber comes from plant foods. Your body can't digest most fiber. Instead of raising blood sugar levels like other carbs, fiber stops blood sugar from rising too fast. Fiber is found in fruits, vegetables, whole grains, beans, peas, and many nuts. Carb counting Keep track of the amount of carbs you eat. This can help you keep the right balance of carbs, physical activity, and medicine. The amount of carbs you need will be different from what other people need. How much you need depends on many things. These include your health, the medicines you take, andhow active you are. Your healthcare team will help you figure out the right amount of carbs for you. You may start with 45 to 60 grams of carbs per meal, depending on your case. Carb counting is a system that helps you keep track of the carbohydrates you eat at each meal. Carbs come from many foods. These include grains, starchy vegetables, fruit, milk, beans, and snackfoods. You can either count carbohydrate grams or carbohydrate servings. When you count carbohydrate servings, 1 carbohydrate serving = 15 grams of carbohydrates. Here are some examples of foods that have about 15 grams of carbs (1 serving of carbohydrates): 1/2 cup of canned or frozen fruit A small piece of fresh fruit (4 ounces) 1 slice of bread 1/2 cup of oatmeal 1/3 cup of rice 4 to 6 crackers 1/2 Syrian muffin 1/2 cup of black beans 1/4 of a large baked potato (3 ounces) 2/3 cup of plain fat-free yogurt 1 cup of soup 1/2 cup of casserole 6 chicken nuggets [id number] brownie or cake without frosting 2 small cookies 1/2 cup of ice cream or sherbet Carb counting is easier when food labels are available. Look at the label to see how many grams of total carbs per serving the food contains. Then you can figure out how much you should eat. If your food doesn't have a nutrition label, you should be able to get an idea how many carbs there are per serving by using a book or website. Two very important lines to look at on the label are the serving size and the total carbohydrate amount per serving. Here are some tips for using food labels to count your carbs: Check the serving size. The information on the label is based on that serving size. If you eat more than the listed serving size, you may have to double or triple the other information on the label. Check the total grams of carbs. Total carbohydrate from the label includes sugar, starch, and fiber. Be sure to use the total carbohydrate number (minus the fiber) and not sugar alone. Know how many grams of carbs you can have. Be familiar with the matching portion sizes. Compare labels. Compare the labels of different products. Look at serving sizes and total carbs to find the products that work best for you. Don't forget protein and fat. With the focus on carb counting, it might be easy to forget protein and fat in your meals. Don't forget to include sources of protein and healthy fat to balance your meals. Also watch how much salt (sodium) you eat. This is especially true if you have high blood pressure. If you have diabetes, limit the amount of sodium to less than 2,300 mg a day. It?s also important to be consistent with the amount of carbs and time you eat when taking a fixed dose of diabetes medicine. Work with your healthcare provider or dietitian if you need more help. They can help you keep track of your carbs. They can also help you figure out how many grams of carbs you should have. Last Reviewed Date: 04/14/202119998143-6007 [employer]. All rights reserved. This information is not intended as a substitute for professional medical care. Always follow your healthcare professional's instructions. * Pt Handout (on AVS) - Rosita Doshi RN - 03/22/2023 3:36 PM EST Images from the original note were not included. 28488 Progressive Relaxation Your body needs relaxation to reduce stress and calm the [id number] response. It helps to planfor about 20 minutes of relaxation every day when you can take time for yourself. Sit or lie comfortably, limiting distractions like phones. Put on some soft music or simply sit in silence. Then incorporate the progressive relaxation technique below. How to do progressive relaxation Progressive relaxation helps your whole body relax. To try this technique, follow these steps: 1. Find a quiet room. Sit in a comfortable chair or lie on your back. 2. Breathe in deeply to a slow count of 5. Feel your belly, chest, and back expand. Breathe out slowly to a count of 5. Do this for several minutes. 3. After a few minutes, breathe in deeply again, but this time tighten the muscles in your feet. Notice how it feels. Hold the tension for 3 seconds. 4. Breathe out while relaxing the tightened muscles. Notice how relaxed you feel. 5. Repeat steps 3 and 4 with another muscle group. You can move from your feet, calves, and thighs to your stomach, arms, and hands. Remember the 4 A?s Avoid a stressor. For example, if someone is smoking when you?re trying to quit, leave the room. Alter how you deal with a stressor. For example, let the answering machine clam picker if a constantly ringing phone is a stressor. Accept a stressor you can?t change, like a job loss, by knowing that your feelings are normal. Adapt to some stressors. For example, when starting a new exercise program, instead of focusing on how hard it will be, think how good you will feel. Last Reviewed Date: 08/13/202119999090-6435 [employer]. All rights reserved. This information is not intended as a substitute for professional medical care. Always follow your healthcare professional's instructions. * Pt Handout (on AVS) - Rosita Doshi RN - 03/22/2023 3:35 PM EST Images from the original note were not included. 57443 Diabetes: Learning About Serving and Portion Sizes Servings and portions. What?s the difference? These terms can be very confusing. But learning to measure serving sizes can help you figure out how many carbohydrates (carbs) and other foods you eat each day. They're also powerful tools for managing your weight. A good rule of thumb: Devote half your plate to vegetables and green salad. Split the other half between protein and starchy carbohydrates. Fruit makes a good dessert. Servings and portions Many different words are used to describe amounts of food. If your healthcare provider uses a term you?re not sure of, don?t be afraid to ask. It helps to know the difference between servings and portions: A serving size. This is a fixed size. Food producers use this term to describe their products. For example, the label on a cereal box could say that 1 cup of dry cereal = 1 serving. A portion (also called a helping). This is how much you eat or how much you put on your plate jorge alberto meal. For instance, you might eat 2 cups of cereal at breakfast. Watching serving sizes The portion you choose to eat (such as 2 cups of cereal) may be more than 1 serving as listed on the food label (such as 1 cup of cereal). That?s why it helps to measure or weigh the food you eat. Because the food label values are based on servings, you?ll need to know how many servings you eat at 1 sitting. When you?re planning for a snack or a meal, keep servings in mind. If you don?t have measuring cupsor a scale handy, there are ways to figure out serving sizes. For instance, you can compare the food to the size of your hand (see pictures below). Here are some general tips: About 3 ounces of meat fits in the palm of your hand 1 cup of food is about the size of your fist An open hand holds about 1 to 2 ounces of nuts Ounces: 2 to 3 ounces is about the size of your palm. 1 cup: 1 cup (or a medium-sized piece) is about the size of your fist. 1/2 cup: 1/2 cup is about the size of your cupped hand. Managing portion sizes If your weight is a concern, reducing your portions can help. A portion is the amount of each type of food on your plate. You can eat more than 1 serving of a food at once. But to keep from eating too much at 1 meal, learn how to manage your portions. Portion control will also help with blood sugarmanagement. Last Reviewed Date: 05/15/202119996225-8384 [employer]. All rights reserved. This information is not intended as a substitute for professional medical care. Always follow your healthcare professional's instructions. * Pt Handout (on AVS) - Rosita Doshi RN - 03/22/2023 3:35 PM EST Images from the original note were not included. [id number] Losing Weight for Heart Health Excess weight is a major risk factor for heart disease. Losing weight has many benefits including lowering your blood pressure, improving your cholesterol level, and decreasing your risk for diseasessuch as diabetes and heart disease. It may help keep your arteries open so that your heart can get the oxygen-rich blood it needs. All in all, losing weight makes you healthier and is one of the bestways to improve your heart's health. Calories and weight loss Calories are the fuel your body burris for energy. You get the calories you need from the food you eat. For healthy weight loss, women should eat at least 1,200 calories a day, men at least 1,500. When you eat more calories than you need, your body stores the extra calories as fat. One pound of fat equals 3,500 calories. To lose weight, try to reduce your total calorie intake. Talk with your healthcare provider to find a safe daily calorie level for weight loss. To reach it, you can eat fewer calories each day. Then add activity to burn the other calories. For instance, walking 2.5 miles burris about 250 calories. Other more intense activities can burn more calories in the time you spend doing them, such as swimming and running. It's important to understand that reducing calorie intake is much more effective for weight loss than exercise. Eat a variety of healthy foods to get the nutrients you need while you're cutting your calories to reduce your weight. Tips for losing weight Drink 8 to 10 glasses of water a day. Don?t skip meals. Instead, eat smaller portions. Eat your meals earlier in the day. Cut out sugary drinks such as soda and fruit juices. Make your later meals operator/assistant foreman than your earlier meals. Brisk activity is best Brisk activity gets your heart pumping faster and it makes it healthier. It?s also a great way to burn calories. In fact, your body may keep burning calories for hours after you stop a brisk activity: Start by walking 10 minutes most days. Add more time and speed to your walk. Build up as you feel able. Each week, aim for at least 150 minutes of moderate-intensity aerobic activity, such as brisk walking. Or aim for 75 minutes of vigorous aerobic activity, such as swimming laps. This will help youget the most health benefits. Get up and move more, and sit less. Sitting too much is linked with increased risk of heart disease. Moving more and sitting less can help cut this risk. The most important part of the activity is that you break a sweat. This means your heart's working hard enough to burn fat. Last Reviewed Date: 02/12/202119994408-3931 [employer]. All rights reserved. This information is not intended as a substitute for professional medical care. Always follow your healthcare professional's instructions. * Pt Handout (on AVS) - Rosita Doshi RN - 03/22/2023 3:34 PM EST Images from the original note were not included. [id number] 5 Steps for Eating Healthier Changing the way you eat can improve your health. It can lower your cholesterol and blood pressure,and help you stay at a healthy weight. Your diet doesn?t have to be bland and boring to be healthy.Just watch your calories and follow these steps: Step 1. Eat fewer unhealthy fats Choose more fish and lean meats instead of fatty cuts of meat. Skip butter and lard, and use less margarine. Replace these with healthier fats, such as olive, canola, or avocado oils. Pass on foods that have palm, coconut, or partially hydrogenated oils. Eat fewer high-fat dairy foods like cheese, ice cream, and whole milk. Get a heart-healthy cookbook and try some new recipes. Step 2. Go light on salt Keep the saltshaker off the table. Limit high-salt ingredients, such as soy sauce, bouillon, and garlic salt. Instead of adding salt when cooking, season your food with herbs, spices, and other flavorings. Try lemon, garlic, onion, vinegar, or salt-free herb seasonings. Limit convenience foods, such as boxed or canned foods and restaurant food. Read food labels and choose lower-sodium options. Buy fresh, frozen, or canned vegetables that don't have added salt. Step 3. Limit sugar Pause before you add sugars to pancakes, cereal, coffee, or tea. This includes white and brown table sugar, syrup, honey, and molasses. Cut your usual amount by half. Swap out sugar-filled soda and other drinks. Buy sugar-free or low-calorie beverages. Remember, water is always the best choice. Try adding lemon juice to water for extra flavor. Read labels and choose foods with less added sugar. Keep in mind that dairy foods and foods withfruit will have some natural sugar. Cut the sugar in recipes by 1/3 to 1/2. Boost the flavor with extracts like almond, vanilla, or orange. Or add spices such as cinnamon or nutmeg. Step 4. Eat more fiber Eat fresh fruits and vegetables every day. Boost your diet with whole grains. Go for oats, whole-grain rice, and bran. Add beans and lentils to your meals. Drink more water to match your fiber increase to help prevent constipation. Step 5. Pay attention to serving sizes Remember that a serving size is a standard measurement. It will let you track the amount of fat,calories, and other nutrients in the food you eat. Read the Nutrition Facts label on packaged foods to learn their serving sizes. Use serving sizes to assess how much food you put on your plate. Pay attention to your portions.How many servings are you eating? Keep in mind that your needs may change if you?re more active or less active, or if you have other factors that change your calorie needs. Use your hand to help you measure serving sizes. For example: o 1 teaspoon: This is about the size of the first joint of your thumb. o 1 tablespoon: This is about the size of the first 2 joints of your thumb. o 1 ounce: This is about what you can fit in your cupped hand. o 2 to 3 ounces: This is about the size of the palm of your hand. o cup: This is also about what you can fit in your cupped hand. o 1 cup: This is about the size of your fist. Last Reviewed Date: 04/14/202219991292-9991 [employer]. All rights reserved. This information is not intended as a substitute for professional medical care. Always follow your healthcare professional's instructions. documented in this encounter Plan of Treatment Upcoming Encounters Date Type Department Care Team (Late st Contact Info) Description 04/03/2023 8:00 AM EST Office Visit Neurology [facility] [address] [place] [address] Clarisa Adair MD [address] [place] [address] 09/05/2023 2:00 PM EDT Office Visit Cardiology [address] [place] [address] Surjit Zamarripa PA-C [address] [place] [address] 01/23/2024 1:40 PM EDT Office Visit Family Medicine [address] [place] [phone] George Cervantes MD [address] [place] [address] [place] [address] 02/19/2024 1:30 PM EDT Imaging Radiology [address] [place] [address] 03/25/2024 2:30 PM EST Nurse Only Ancillary [address] [place] [address] [place], Nurse [address] [place] [address] Scheduled Procedures Name Priority Associated Diagnoses Date/Ti me COLONOSCOPY FLEXIBLE PROXIMA L DIAGNOSTIC Recall History of colonic polyps Scheduled Referrals Name Type Priority Associated Diagnoses Orde r Schedule PHARMACIST MEDS THERAPY MGMT REFERRAL OP Referral Within 30 days (routine) Migraine without aura and without status migrainosus, not intractable Ordered: 03/22/2023 NEUROLOGY REFERRAL OP Referral Within 30 days (routine) Migraine without aura and without status migrainosus, not intractable Ordered: 03/22/2023 Health Maintenance Due Date Last Done Comments DTaP,Tdap,and Td Vaccines (2 - Td or Tdap) 07/14/2018 07/14/2008, 11/19/1991 Depression Screening 12/02/2020 12/03/2019 COVID-19 Vaccine (2022- season) 2023 03/08/2021, 07/25/2020, 07/04/2020 Albumin/Creatinine Ratio 05/30/2023 05/30/2022 GFR 08/08/2023 02/07/2023, 12/13, 05/30/2022, Additional history exists DXA Scan 08/25/2023 08/24/2021 CKD HGB USE SMARTSET 09682 12/30/202312/29, 05/30/2022, 05/30/2022, Additional history exists CKD PHOS USE SMARTSET 66667 02/08/2024 02/07/2023 Mammogram 02/14/2024 02/13/2023, 08/3 , 01/06/2021, Additional history exists Diabetes Screening 02/07/2026 02/07/2023, 0 02/07/2023, 12/29/2022, Additional history exists COLONOSCOPY-EVERY 5 YRS AGES 18-100 12/20/2027 12/19/2022, 12/19/2022, 10/02/2012, Additional history exists Lipid Panel 12/30/2027 12/29/2022, 040 08/2021, 07/30/2020, Additional history exists Fecal Occult Blood Test Discontinued 10/23/2001 Zoster Vaccines Completed 04/01/2020, 12/14, 11/26/2015 Pneumococcal Vaccine: 65+ Years Completed 01/12/2022, 12/03/2019, 10/07/2014 VITAMIN D LEVEL ONCE IN A LIFETIME-USE SMARTSET# [id number] Completed 05/30/2022 Cologuard Discontinued 07/26/2022, 0 10/2022, 07/18/2022 Colonoscopy Discontinued 12/19/2022, 080 11/2022, [...] as of this encounter Visit Diagnoses Diagnosis Routine general medical examination at a health care facility- Primary Risk and functional assessment Screening for unspecified condition Migraine without aura and without status migrainosus, not intractable Migraine without aura, without mention of intractable migraine without mention of status migrainosus Age-related osteoporosis without current pathological fracture Senile osteoporosis Dyslipidemia, goal LDL below 100 Other and unspecified hyperlipidemia Fibromyalgia Mylagia and myositis, unspecified HTN, goal below 140/90 Unspecified essential hypertension Hypertensive kidney disease with stage 3a chronic kidney disease (HCC) Major depressive disorder, single episode, mild (HCC) Major depressive disorder, single episode, mild Mild persistent asthma without complication Unspecified asthma Persistent insomnia Persistent disorder of initiating or maintaining sleep Reflux esophagitis Sleep disorder Sleep disturbance, unspecified documented in this encounter Care Teams Hospice Clinical Manager Relationship Specialty Start Date End Date George Cervantes MD [address] [place] [address] [place] [address] PCP - General Family Medicine 10/07/14 documented as of this encounter
--- OUTSIDE RECORDS SUMMARY | 2023-09-06 09:45 | External Medical Summary | Summary of Care ---
Author Name Unknown Organization [facility] Address [address] [place] [address] Phone [phone] Care Team Providers Care Linux Server Engineer Name Role Phone Sheryl Cervantes MD Primary Care Provide r Reason for Visit * Reason Comments Medication Refill Encounter Details Date Type Department Care Team (Late st Contact Info) Description 03/28/2023 Refill Family Medicine [address] [phone] Sheryl Cervantes MD [address] [place] [address] [place] [address] Persistent insomnia Allergies Active Allergy Reactions Criticality Noted Date Comments Morphine And Related 02/19/2001 swelling Penicillins 02/19/2001 Rash as an adult 20+ yrs ago Sulfa Antibiotics 02/19/2001 Rash, 2010 documented as of this encounter (statuses as of 03/28/2023) Medications Medication Sig Dispensed Refills Start Date [...] TIMES A DAY 180 Capsule 1 10/13/2022 10/13/19 24 Active DULoxetine HCl 30 MG Oral Capsule Delayed Release Particles (Cymbalta)Indicatio ns:Generalized osteoarthritis,Dege neration of cervical intervertebral disc,Fibromyalgia TAKE ONE CAPSULE BY MOUTH ONCE DAILY DO NOT CRUSH CUT OR CHEW. TAKE WITH 60MG DOSE FOR A TOTAL OF 90MG DAILY 100 Capsule 1 09/05/2022 09/05/19 24 Active DULoxetine HCl 60 MG Oral Capsule Delayed Release Particles (Cymbalta)Indiatio ns:Fibromyalgia,Chr onic midline thoracic back pain,Chronic midline low back pain without sciatica TAKE ONE CAPSULE BY MOUTH EVERY MORNING 90 Capsule 3 08/15/2022 08/15/19 24 Active Metoprolol Succinate ER 50 MG Oral Tablet Extended Release 24 Hour (toPROL XL)Indications:Vent ricular ectopic beat,Palpitations TAKE ONE TABLET BY MOUTH EVERY MORNING AND TAKE ONE TABLET BY MOUTH EVERY DAY BEFORE BEDTIME 180 Tablet 3 05/12/2022 06/01/19 24 Active Cholestyramine 4 GM Oral Packet (Questran)Indiatio ns:Irritable bowel syndrome with diarrhea DISSOLVE TWO PACKETS IN LIQUID AND TAKE BY MOUTH DAILY 180 Each 1 04/05/2022 04/05/20 23 Active Additional Information Patient taking differently: 4 g Oral EVERY OTHER DAY, DISSOLVE TWO PACKETS IN LIQUID AND TAKE BY MOUTH EVERY OTHER DAY, Reported on 12/14/2022 Atorvastatin Calcium 20 MG Oral Tablet (Lipitor)Indication s:Hyperlipidemia with target LDL less than 100 Take by mouth 1 Tablet in the morning. 100 Tablet 3 11/21/2022 Active Pregabalin 50 MG Oral Capsule (Lyrica)Indications :Fibromyalgia TAKE ONE CAPSULE BY MOUTH EVERY MORNING AND ONE CAPSULE BEFORE BEDTIME 180 Capsule 1 02/14/2023 08/16/19 24 Active Alendronate Sodium 70 MG Oral [...] IN 24 HOURS 10 Tablet 3 03/28/2023 03/27/20 24 Active traZODone HCl 150 MG Oral Tablet (Desyrel)Indication s:Persistent insomnia TAKE ONE TABLET BY MOUTH AT BEDTIME 90 Tablet 3 03/28/2023 03/27/20 24 Active traZODone HCl 150 MG Oral Tablet (Desyrel)Indication s:Persistent insomnia TAKE ONE TABLET BY MOUTH AT BEDTIME 90 Tablet 3 2022 03/28/20 23 Discontinu ed(Refill) Almotriptan Malate 12.5 MG Oral Tablet TAKE ONE TABLET BY MOUTH AT ONSET OF MIGRAINE. MAY REPEAT IN 2 HOURS. MAX DOSE 2 TABLETS IN 24 HOURS 10 Tablet 2 12/17/2022 03/28/20 23 Discontinu ed(Refill) documented as of this encounter (statuses as of 03/28/2023) Active Problems Problem Noted Date Diagnosed Date [...] as of this encounter (statuses as of 03/28/2023) Resolved Problems Problem Noted Date Diagnosed Date Resolved Date Chronic kidney disease, stage 3a 06/27/2022 02/07/2023 Overview: Per CKD protocol Abnormal PFT 12/25/2017 03/29/2019 Pulmonary hypertension 10/09/201401/10 Enthesopathy of hip 06/27/2003 03/07/20 17 ABNORMAL FINDINGS-BREAST 10/30/2002 Excessive menstruation 06/21/200204/29 Diarrhea 06/07/2016 documented as of this encounter (statuses as of 03/28/2023) Immunizations Name Administration Dates Next Due COVID-19 [...] Tobacco: Never Alcohol Use Standard Drinks/Week Comments Yes 0 [...] Miscellaneous Notes * Telephone Encounter - Robin Lora RPh - 03/28/2023 2:18 PM EST Signed Prescriptions: Disp Refills Almotriptan Malate 12.5 MG Oral Tablet 10 Tab*3 Sig: TAKE ONE TABLET BY MOUTH AT ONSET OF MIGRAINE. MAY REPEAT IN 2 HOURS. MAX DOSE 2 TABLETS IN 24 HOURS Authorizing Provider: SHERYL CERVANTES Ordering User: ROBIN LORA traZODone HCl 150 MG Oral Tablet (Desyrel) 90 Tab*3 Sig: TAKE ONE TABLET BY MOUTH AT BEDTIM E Authorizing Provider: SHERYL CERVANTES Ordering User: ROBIN LORA * Telephone Encounter - 03/28/2023 12:11 AM ESTPending Prescriptions: Disp Refills Almotriptan Malate 12.5 MG Oral Tablet 10 Tab*2 Sig: TAKE ONE TABLET BY MOUTH AT ONSET OF MIGRAINE. MAY REPEAT IN 2 HOURS. MAX DOSE 2 TABLETS IN 24 HOURS traZODoneHCl 150 MG Oral Tablet (Desyrel) 90 Tab*3 Sig: TAKE ONE TABLET BY MOUTH AT BEDTIME documented in this encounter Plan of Treatment Upcoming Encounters Date Type Department Care Team (Late st Contact Info) Description 04/03/2023 8:00 AM EST [facility] [address] [place] [address] Clarisa Adair MD [address] [place] [address] 04/17/2023 3:00 PM EST Office Visit Pharmacy, [address] [place] [address] [place] [address] 09/05/2023 2:00 PM EDT Office Visit Cardiology [address] [place] [address] Surjit Zamarripa PA-C [address] [place] [address] 01/23/2024 1:40 PM EDT Office Visit Family Medicine [address] [place] [phone] Sheryl Cervantes MD [address] [place] [address] [place] [address] 02/19/2024 1:30 PM EDT Imaging Radiology [address] [place] [address] 03/25/2024 2:30 PM EST Nurse Only Ancillary [address] [place] [address] [place], Nurse Annual [address] [place] [address] Scheduled Procedures Name Priority Associated Diagnoses Date/Ti me COLONOSCOPY FLEXIBLE PROXIMA L DIAGNOSTIC Recall History of colonic polyps Health Maintenance Due Date Last Done Comments DTaP,Tdap,and Td Vaccines (2 - Td or Tdap) 07/14/2018 07/14/2008, 11/19/1991 COVID-19 Vaccine (2022- season) 2023 03/08/2021, 07/25/2020, 07/04/2020 Albumin/Creatinine Ratio 05/30/2023 05/30/2022 GFR 08/08/2023 02/07/2023, 0811/2022, 05/30/2022, Additional history exists DXA Scan 08/25/2023 08/24/2021 CKD HGB USE SMARTSET 46757 12/30/202312/29, 05/30/2022, 05/30/2022, Additional history exists CKD PHOS USE SMARTSET 32145 02/08/2024 02/07/2023 Mammogram 02/14/2024 02/13/2023, 12/15, 01/06/2021, [...] D LEVEL ONCE IN A LIFETIME-USE SMARTSET# [id number] Completed 05/30/2022 Cologuard Discontinued 07/26/2022, 03/0 10/2022, [...] as of this encounter Visit Diagnoses Diagnosis Persistent insomnia Persistent disorder of initiating or maintaining sleep documented in this encounter Care Teams Linux Server Engineer Relationship Specialty Start Date End Date Sheryl Cervantes MD [address] [place] [address] [place] [address] PCP - General Family Medicine 10/07/14 documented as of this encounter
--- OUTSIDE RECORDS SUMMARY | 2023-09-06 09:45 | External Medical Summary | Summary of Care ---
Author Name Unknown Organization [facility] Address [address] [place] [address] Phone [phone] Care Team Providers Care Crm Marketing Executive Name Role Phone Sheryl Cervantes MD Primary Care Provide r Reason for Visit * Reason Comments Medication Refill Encounter Details Date Type Department Care Team (Late st Contact Info) Description 03/28/2023 Refill Family Medicine [address] [phone] Sheryl Cervantes MD [address] [place] [address] [place] [address] Persistent insomnia Allergies Active Allergy Reactions Criticality Noted Date Comments Morphine And Related 02/19/2001 swelling Penicillins 02/19/2001 Rash as an adult 20+ yrs ago Sulfa Antibiotics 02/19/2001 Rash, 2010 documented as of this encounter (statuses as of 03/31/2023) Medications Medication Sig Dispensed Refills Start Date [...] as of this encounter (statuses as of 03/31/2023) Active Problems Problem Noted Date Diagnosed Date [...] as of this encounter (statuses as of 03/31/2023) Resolved Problems Problem Noted Date Diagnosed Date Resolved Date Chronic kidney disease, stage 3a 06/27/2022 02/07/2023 Overview: Per CKD protocol Abnormal PFT 12/25/2017 03/29/2019 Pulmonary hypertension 10/09/201401/10 Enthesopathy of hip 06/27/2003 03/07/20 17 ABNORMAL FINDINGS-BREAST 10/30/2002 Excessive menstruation 06/21/200204/29 Diarrhea 06/07/2016 documented as of this encounter (statuses as of 03/31/2023) Immunizations Name Administration Dates Next Due COVID-19 [...] 04/03/2023 8:00 AM EST [facility] [address] [place] [address] Clarisa Adair MD [address] [place] [address] 04/17/2023 3:00 PM EST Office Visit Pharmacy, [address] [place] [address] [place] [address] 09/05/2023 2:00 PM EDT Office Visit Cardiology [address] [place] [address] Surjit Zamarripa PA-C [address] [place] [address] 01/23/2024 1:40 PM EDT Office Visit Family Medicine [address] [place] [phone] Sheryl Cervantes MD [address] [place] [address] [place] [address] 02/19/2024 1:30 PM EDT Imaging Radiology [address] [place] [address] 03/25/2024 2:30 PM EST Nurse Only Ancillary [address] [place] [address] [place], Nurse Annual [address] [place] [address] Scheduled Procedures Name Priority Associated Diagnoses Date/Ti [...] Scan 08/25/2023 08/24/2021 CKD HGB USE SMARTSET 05022 12/30/202312/29, 05/30/2022, 05/30/2022, Additional history exists CKD PHOS USE SMARTSET 42041 02/08/2024 02/07/2023 Mammogram 02/14/2024 02/13/2023, 12/15, 01/06/2021, [...] D LEVEL ONCE IN A LIFETIME-USE SMARTSET# [id number] Completed 05/30/2022 Cologuard Discontinued 07/26/2022, 03/0 10/2022, [...] sleep documented in this encounter Care Teams Crm Marketing Executive Relationship Specialty Start Date End Date Sheryl Cervantes MD [address] [place] [address] [place] [address] PCP - General Family Medicine 10/07/14 documented as of this encounter
--- NOTE | 2023-09-06 16:10 | Electrocardiogram Report ---
Test Reason : Blood Pressure : / mmHG Vent. Rate : 081 BPM Atrial Rate : 081 BPM P-R Int : 136 ms QRS Dur : 090 ms QT Int : 386 ms P-R-T Axes : 029 -19 034 degrees QTc Int : 448 ms Normal sinus rhythm Inferior infarct , age undetermined Abnormal ECG When compared with ECG of 13-APR-2020 06:28, Inferior infarct is now Present Confirmed by Navdeep Madrigal ([id number]) on 09/06/2023 4:10:28 PM Referred By: George Cervantes Confirmed By:Navdeep Madrigal
--- NOTE | 2023-09-06 16:53 | Discharge Summary ---
Date of Service September 06, 2023 Admission HPI Per Admitting Provider Ms. Ramirez is a 68-year-old female that presented to the ED today as recommended by her PCP after she presented today with complaints of dizziness, fatigued and slurred speech that was identified by her PCP. She woke up this morning feeling dizzy and proceeded to make lunch that included pork ribs and potatoes at 1230. Since then she was unable to feel so she could stay awake. Her and son were at bedside and no identified mild facial droop. She was loaded with aspirin and brought to the ED. Recently started on almotriptan at the beginning of the month for persistent headaches that she reports has been helpful. No known history of cardiac AMI or CVA. Head CT and head neck CTA negative for ICH, occlusion, midline shift or acute stroke. No leukocytosis otherwise labs unremarkable. Past medical history includes fibromyalgia, history of Mejias's palsy, depression, OA, HTN, HLD, headache and GERD. PCI catheterization 2016 normal no occlusions. Most recent echo 05/02 EF 55 to 59%, mild MR, mild AV regurgitation, grade 1 diastolic dysfunction. Patient denies dizziness with position changes. Patient uses a cane/walker for assistance in ambulation due to her fibromyalgia. Patient reevaluated at bedside and is AAO x 4 and is able to answer all questions appropriately. NIH 0. Equal strength upper and lower extremities. No pronator drift. No nystagmus noted. PERRLA. Patient will be admitted for further evaluation and management of possible strokelike symptoms; suspect vertigo in nature. Complete neurowork-up with admission to PCU, echocardiogram, MRI brain, n.p.o. until passing dysphagia screen, PT OT/speech. Consider vestibular PT for vertigo symptoms. Admission Exam Per Admitting Provider GENERAL APPEARANCE: AxOx4, generally well-appearing female no acute distress. HEENT: NC, AT. MMM. EOMI, clear conjunctiva, oropharynx clear. NECK: Supple without lymphadenopathy. No stiffness or restricted ROM. HEART: Normal rate and regular rhythm, normal S1/S1, no m/r/g LUNGS: CTAB, moving air well. No crackles or wheezes are heard. ABDOMEN: Soft, nontender, nondistended with good bowel sounds heard. EXTREMITIES: Without cyanosis, clubbing or edema. NEUROLOGICAL: Grossly nonfocal. Alert and oriented, moving all 4 extremities. CN not formally tested but appear grossly intact. Skin: Warm and dry without any rash. Principal Diagnosis Vertigo Discharge Exam GENERAL APPEARANCE: AxOx4, generally well-appearing female no acute distress. HEENT: NC, AT. MMM. EOMI, clear conjunctiva NECK: Supple HEART: Normal rate and regular rhythm, normal S1/S1, no m/r/g LUNGS: CTAB, moving air well. No crackles or wheezes ABDOMEN: Soft, nontender, nondistended with + bowel sounds EXTREMITIES: No LE edema, moving extremities w/o difficulty NEUROLOGICAL: Alert and oriented, answers appropriately, speech fluent, no facial asymmetry, moving all 4 extremities. Skin: Warm and dry Discharge Data Allergies Allergy/AdvReac Type Severity Reaction Status Date / Time morphine Allergy Intermediate SWELLING Verified 09/05/23 16:54 Penicillins Allergy Intermediate Rash Verified 09/05/23 16:54 Sulfa (Sulfonamide Allergy Intermediate Rash Verified 09/05/23 16:54 Antibiotics) Consultations 09/05/23 17:21 ED Decision to Admit Stat 09/05/23 20:44 Consult Neurology Routine Ordered Studies 09/05/23 15:39 CT head/brain wo con Stat FINDINGS: No acute intracranial hemorrhage, midline shift, intracranial mass, hydrocephalus, territorial ischemia or abnormal extra-axial collection. Mild involutional changes. The calvarium is intact. The paranasal sinuses, mastoid air cells, and middle ear cavities are clear. IMPRESSION: No acute intracranial abnormality. 09/05/23 15:46 CT angio head w con Stat IMPRESSION: No central vessel occlusion. No intracranial aneurysm. CT angio neck with con Stat IMPRESSION:Unremarkable CTA of the neck. 09/05/23 20:44 MR brain wo con Routine FINDINGS: Brain: Mild generalized brain atrophy. Small areas of periventricular T2 hyperintensity with punctate foci in the deep white matter compatible with nonspecific microangiopathic disease. No hemorrhage. No acute infarct. Ventricles: Unremarkable. No ventriculomegaly. Bones/joints: Unremarkable. No acute fracture. Sinuses: Unremarkable as visualized. No acute sinusitis. Mastoid air cells: Unremarkable as visualized. No mastoid effusion. Orbits: Unremarkable as visualized. IMPRESSION: 1. Chronic changes as described with no acute stroke or intracranial hemorrhage 2. No intracranial space-occupying lesion. Hospital Course (1) Stroke-like symptoms: (2) Vertigo: (3) HTN (hypertension): (4) HLD (hyperlipidemia): (5) Depression: (6) GERD (gastroesophageal reflux disease): (7) Osteoporosis: Plan Ms. Ramirez is a 68 yo F that presents with complaints of dizziness, fatigued and slurred speech. Head CT and head neck CTA negative for ICH, occlusion, midline shift or acute stroke. No leukocytosis otherwise labs unremarkable. Past medical history includes fibromyalgia, history of Mejias's palsy, depression, OA, HTN, HLD, headache and GERD. PCI catheterization 2016 normal no occlusions. Most recent echo 05/02 EF 55 to 59%, mild MR, mild AV regurgitation, grade 1 diastolic dysfunction. Patient reevaluated at bedside and is AAO x 4 and is able to answer all questions appropriately. NIH 0. Equal strength upper and lower extremities. No pronator drift. No nystagmus noted. PERRLA. Patient was admitted for further evaluation and management of possible strokelike symptoms; suspect vertigo in nature. Complete neurowork-up with admission to PCU, echocardiogram, MRI brain, Consider vestibular PT for vertigo symptoms. Stroke like symptoms: acute + slurred speech with dizziness NIH [address] and Head/Neck CTA negative brain MRI negative Echo obtained and results reviewed Neurology consulted - Vertigo: -patient has hx of chronic vertigo -MRI brain and CTA are unremarkable -Given hx of migraine, possible that her vertigo is migrainous in origin, as migraine may help explain why the patient was tired and lethargic following the event yesterday -Supportive care, PRN meclizine, refer to PT for vestibular therapy -Keep OP f/u with Neurology in September Currently pt is feeling well, no concerns per RN at the bedside either. Pt would like to be discharged home. She will follow up with PCP and neurology. Vertigo: Migranes: Acute Recently started on a triptan; could be contributing to symptoms ecstasy positive in urine; could be from triptan therapy; hold triptan consider vertigo in nature Check Orthostatic BP's Consider vestibular PT as above HTN: chronic takes metoprolol;continue Normotensive in ED and no concerns to allow for permissive HTN HLD: chronic takes atorvastatin;continue lipid panel in AM obtained, LDL 44 Depression: chronic Takes duloxetine;continue GERD: Chronic Takes omeprazole; continue Osteoporosis: Chronic Takes alendronate; continue Disposition: PCP: Dr. Cervantes Code Status: Full Code Total Time Total Time Spent Total Time Spent (In Minutes): 40 Discharge Plan Discharge Items Patient Disposition: Home - Home Health Services Reason For Visit: TIA Discharge Diagnosis: Vertigo Activity: Per Instructions section Non-emergency contact: Primary Care Provider Call non-emergency contact if: you have any medication questions and your symptoms worsen Follow-up/Referrals: George Cervantes MD [Primary Care Provider] - (Date & Time 09/15/2023 2:20 PM Provider George Cervantes MD Department Family Medicine [facility] ) Clarisa Adair MD [Physician] - (Date & Time 09/14/2023 1:00 PM Provider Clarisa Adair MD Department Neurology [facility] ) Diet: Heart Healthy Addtl Attending Provider Instructions: Follow up with your primary care doctor and neurologist. The appointment with your neurologist is scheduled for you for 09/13 and with your primary care doctor for 09/14. Pending Studies at Discharge: No Stand-Alone Forms: My [facility] [place], Smoking Cessation Medications and DC Order Prescriptions: Continued atorvastatin 20 mg tablet 20 mg PO QAM metoprolol succinate 50 mg tablet extended release 24 hr 50 mg PO BID almotriptan malate 12.5 mg tablet 12.5 mg PO DIRECTED PRN (Reason: Migraine Headache) omeprazole 40 mg capsule,delayed release(DR/EC) 40 mg PO BID duloxetine 30 mg capsule,delayed release(DR/EC) 30 mg PO DAILY Rx Instructions: TOTAL DOSE 90 MG--TAKES WITH 60 MG CAP. diclofenac sodium 1 % gel 1 ea topical BID PRN (Reason: Pain) aspirin [Quan Low Dose Aspirin] 81 mg Tablet,Delayed Release (Dr/Ec) 81 mg PO DAILY alendronate 70 mg tablet 70 mg PO WK Rx Instructions: MONDAYS trazodone 150 mg tablet 150 mg PO HS duloxetine 60 mg capsule,delayed release(DR/EC) 60 mg PO DAILY Rx Instructions: TOTAL DOSE 90 MG--TAKES WITH 30 MG pregabalin 50 mg capsule 50 mg PO BID Emgality Pen 120 mg/mL pen injector 120 mg SUBCUT MONTHLY Rx Instructions: TAKES THE OF THE Admission Data Admit Date/Time: 09/05/23 18:08 Attending Provider: Eduardo Barajas Admit Provider: Yi Reyes Primary Care Provider: George Cervantes Other Providers: Sandy Neri; Caden Blanton
== END 2023-09-06 16:58 | disposition home health service (06) ==
LOC: ED 15:21 → EDINP 15:21 → SUATTDRO 18:08 → EDINP 20:44